=== PATIENT | male | born 1965 | race Caucasian/White ===

== ENCOUNTER 2016-07-05 12:38 | Emergency (ER) | payer MEDICARE, MEDICAID ==
[2016-07-05 14:36] VITALS: BP 140/78
[2016-07-05] MEDS ORDERED: Lidocaine 1% MPF* 2 ML VIAL INJ ONE (15:17)
--- NOTE | 2016-07-05 15:51 | UC ---
George Torres Anna, scribed for Richard Gómez MD on 07/05/16 at 1512 . Skin Complaint HPI - HPI Summary HPI Summary: Patient is a 50 y/o male coming to [facility] [place] presenting with a constant lump on his upper left thigh that began three weeks ago. The lump was initially the same color as his skin. He says it looked like a lipoma. Yesterday the area turned erythematous and became painful. Today, the pain and erythema had worsened, and he popped the lump. The area drained primarily blood with a small amount of pus. Per triage notes, he describes the severity of the pain as 3/10. 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 Patient medications were reviewed this visit. - History of Current Complaint Chief Complaint: UCSkin Time Seen by Provider: 07/05/16 15:08 Stated Complaint: LUMP THAT BURST-PUS/BLOOD Hx Obtained From: Patient Onset/Duration: Lasting Weeks, Still Present Skin Exposure Onset/Duration: Weeks Ago Timing: Constant Pain Intensity: 3 Pain Scale Used: 0-10 Numeric - Allergy/Home Medications Allergies/Adverse Reactions: Allergies Allergy/AdvReac Type Severity Reaction Status Date / Time MAO inhibitors Allergy unk Uncoded 09/01/13 17:24 Review of Systems Constitutional: Negative Skin: Other - lump on upper left thigh - erythematous and painful Eyes: Negative ENT: Negative Respiratory: Negative Cardiovascular: Negative Gastrointestinal: Negative Genitourinary: Negative Motor: Negative Neurovascular: Negative Musculoskeletal: Negative Neurological: Negative Psychological: Negative All Other Systems Reviewed And Are Negative: Yes PMH/Surg Hx/FS Hx/Imm Hx - Additional Past Medical History Additional PMH: sleep apnea, schizoaffective disorder Endocrine History: Diabetes Cardiovascular History: Other - Denies CAD, NE Other Cardiovascular History: DENIES - Surgical History Surgical History: Yes Surgery Procedure, Year, and Place: arthroscopy right knee, posterior chest repair - Family History Known Family History: Positive: Other - sleep apnea - Social History Alcohol Use: None Alcohol Amount: 20years sober Substance Use Type: None Smoking Status (MU): Former Smoker Type: Cigarettes Have You Smoked in the Last Year: No When Did the Patient Quit Smoking/Using Tobacco: 2 yrs ago Physical Exam Triage Information Reviewed: Yes Appearance: Well-Appearing, No Pain Distress Vital Signs: Initial Vital Signs Temp 98 F 07/05/16 14:32 Pulse 95 07/05/16 14:32 Resp 20 07/05/16 14:32 BP 140/78 07/05/16 14:32 Pulse Ox 100 07/05/16 14:32 Elevated blood pressure noted. Vital Signs Reviewed: Yes Eyes: Positive: Other: - EOMI, TOBI ENT Exam: Normal Respiratory: Positive: Normal breath sounds, No respiratory distress Cardiovascular: Positive: RRR Musculoskeletal Exam: Normal Musculoskeletal: Positive: Strength Intact, ROM Intact Neurological Exam: Normal, Other - sensory/motor intact, A&O x3 Psychological Exam: Normal - affect/mood appropriate Skin Exam: Other - On his left upper thigh, he has a subcutaneous, firm mass 1 cm wide by 1 .5 cm long. There is no active drainage. There is a 5 cm x 8 cm erythematous, blanching warm area consistent with cellulitis. Course/Dx - Course Course Of Treatment: NO PUS DRAINED FROM SITE. RX CEFALEXIN; F/U PMD. ED IF WORSE. DISCHARGE HOME STABLE. - Diagnoses Provider Diagnoses: Elevated blood presssure without diagnosis of hypertension. CELLULITIS LEFT UPPER LEG. Procedures - Procedure Summary Procedure Summary: Betadine sterile procedure, numbed with 1% lidocaine Attempted drainage with 18 gauge needle, but got no pus back. - Incision and Drainage Site: upper left thigh Anesthesia: Lidocaine - 1% Instrument(s): Needle - 18 gauge Discharge - Discharge Plan Condition: Stable Disposition: HOME Prescriptions: Cephalexin CAP* [Keflex CAP*] 500 mg PO QID #40 cap Patient Education Materials: Cellulitis (ED), Hypertension (ED) Referrals: Andrew Mayo MD [Primary Care Provider] - Additional Instructions: FOLLOW UP WITH YOUR DOCTOR FOR YOUR CELLULITIS AND YOUR BLOOD PRESSURE. GET REEVALUATED IN THE EMERGENCY DEPARTMENT FOR ANY WORSENING OF YOUR CONDITION ; SPREAD OF INFECTION, FEVER, YOU FEEL ILL OR QUESTIONS OR CONCERNS. The documentation as recorded by the George lee Anna accurately reflects the service I personally performed and the decisions made by me, Richard Gómez MD.
== END 2016-07-05 16:11 | disposition home or self-care (01) ==
LOC: UCEAST 12:38
DX: R03.0 Elevated blood-pressure reading, without diagnosis of hypertension (principal); L03.116 Cellulitis of left lower limb; Z87.891 Personal history of nicotine dependence
CPT/HCPCS: 10060; 99212; G0463

== ENCOUNTER 2016-11-21 12:26 | Emergency (ER) | payer MEDICARE, MEDICAID ==
[2016-11-21 13:38] VITALS: BP 152/74
--- NOTE | 2016-11-21 13:56 | UC ---
Respiratory Complaint HPI - HPI Summary HPI Summary: 51 yo male with cough x 2 weeks productive of green sputum sinus pain /pressure as well has felt feverish no n/v/d - History of Current Complaint Chief Complaint: UCGeneralIllness Stated Complaint: URI Time Seen by Provider: 11/21/16 13:23 Onset/Duration: Sudden Onset Timing: Constant Severity Initially: Mild Severity Currently: Moderate Pain Intensity: 0 Pain Scale Used: 0-10 Numeric Character: Cough: Productive Aggravating Factors: Nothing Alleviating Factors: Nothing Associated Signs And Symptoms: Positive: Fever - has felt feverish, Nasal Congestion, Sinus Discomfort - Allergies/Home Medications Allergies/Adverse Reactions: Allergies Allergy/AdvReac Type Severity Reaction Status Date / Time MAO inhibitors Allergy unk Uncoded 11/21/16 13:27 Home Medications: Home Medications Turmeric (Curcuma Longa) [Turmeric] 1 cap PO BID 11/21/16 [History Confirmed ] PMH/Surg Hx/FS Hx/Imm Hx Previously Healthy: Yes Endocrine History: Diabetes Psychological History: Bipolar Disorder, Other Other Psychological History: schizoaffective disorder - Surgical History Surgical History: Yes Surgery Procedure, Year, and Place: arthroscopy right knee - Family History Known Family History: Positive: Other - sleep apnea - Social History Alcohol Use: None Alcohol Amount: 20years sober Substance Use Type: None Smoking Status (MU): Former Smoker Type: Cigarettes Have You Smoked in the Last Year: No When Did the Patient Quit Smoking/Using Tobacco: 2 yrs ago Review of Systems Constitutional: Negative Skin: Negative Eyes: Negative ENT: Nasal Discharge, Sinus Congestion, Sinus Pain/Tenderness Respiratory: Cough Cardiovascular: Negative Gastrointestinal: Negative Genitourinary: Negative Motor: Negative Neurovascular: Negative Musculoskeletal: Negative Neurological: Negative Psychological: Negative Is Patient Immunocompromised?: No All Other Systems Reviewed And Are Negative: Yes Physical Exam Triage Information Reviewed: Yes Appearance: Well-Appearing, No Pain Distress, Well-Nourished Vital Signs: Initial Vital Signs Temp 97.6 F 11/21/16 13:29 Pulse 95 11/21/16 13:29 Resp 18 11/21/16 13:29 BP 152/74 11/21/16 13:29 Pulse Ox 99 11/21/16 13:29 Vital Signs Reviewed: Yes Eyes: Positive: Conjunctiva Clear ENT: Positive: Hearing grossly normal. Negative: Nasal congestion, Nasal drainage, Tonsillar exudate, Trismus, Muffled/hoarse voice Neck: Positive: Supple, Nontender, No Lymphadenopathy Respiratory: Positive: Normal breath sounds, No respiratory distress, No accessory muscle use, Rhonchi - with forced expiration Cardiovascular: Positive: RRR, No Murmur Abdomen Description: Positive: Nontender, No Organomegaly Musculoskeletal: Positive: ROM Intact, No Edema Neurological Exam: Normal Neurological: Positive: Alert Psychological Exam: Normal Skin Exam: Normal UC Diagnostic Evaluation - Laboratory O2 Sat by Pulse Oximetry: 99 - normal/not hypoxic Respiratory Course/Dx - Differential Dx/Diagnosis Provider Diagnoses: acute bronchitis Discharge - Discharge Plan Condition: Stable Disposition: HOME Prescriptions: Azithromycin TAB* [Zithromax TAB*] 250 mg PO DAILY #6 tab Benzonatate CAP* [Tessalon CAP*] 100 - 200 mg PO TID PRN #28 cap PRN Reason: Cough Patient Education Materials: Acute Bronchitis (ED) Referrals: Andrew Mayo MD [Primary Care Provider] - 4 Days (if not better)
== END 2016-11-21 13:58 | disposition home or self-care (01) ==
LOC: UCEAST 12:26
DX: J20.9 Acute bronchitis, unspecified (principal); E11.9 Type 2 diabetes mellitus without complications; Z87.891 Personal history of nicotine dependence
CPT/HCPCS: 99212; G0463

== ENCOUNTER 2017-02-24 12:56 | Day surgery (SDC) | payer MEDICARE, MEDICAID ==
[~2017-02-24 12:56] MED LIST: Buffered Lidocaine 0.9% SYRIN* 5 ML/SYR SYRINGE INTRADERM ONE; Dexamethasone IV* 4 MG/ML 1 ML (4 MG) IV SLOW PU ONE; Famotidine IV* 10 MG/ML 2 ML (20 mg) IV ONE; Levalbuterol 0.63MG/3ML NEB* UNIT OF USE INH ONE
[2017-02-24] MEDS ORDERED: Famotidine IV* 10 MG/ML 2 ML (20 mg) ONE (13:02)
[2017-02-24] MEDS ORDERED: Buffered Lidocaine 0.9% SYRIN* 5 ML/SYR SYRINGE ONE (13:02)
[2017-02-24] MEDS ORDERED: Dexamethasone IV* 4 MG/ML 1 ML (4 MG) ONE (13:02)
[2017-02-24] MEDS ORDERED: Levalbuterol 1.25MG/0.5ML NEB ONE (13:02)
[2017-02-24] MEDS ORDERED: Naloxone* 0.4 MG/ML 1 ML VIAL IV PRN ×2 (13:42→14:48)
[2017-02-24] MEDS ORDERED: Midazolam* 1 MG/ML 10 ML VIAL (10 MG) ONE (14:42)
[2017-02-24] MEDS ORDERED: fentaNYL* 50 MCG/ML 2 ML VIAL (100 MCG VIAL) ONE ×2 (14:42→15:07)
[2017-02-24] MEDS ORDERED: Propofol* 10 MG/ML 20 ML BTL IV PUSH ONE ×2 (14:43→14:45)
[2017-02-24] MEDS ORDERED: Ondansetron INJ* 2 MG/ML VIAL ONE ×2 (14:44→14:45)
[2017-02-24 16:04] VITALS: BP 138/85
--- NOTE | 2017-02-25 04:15 | PRO ---
CC: Dr. Mayo; Dr. Danica Arias GASTROENTEROLOGY OPERATIVE REPORT: DATE OF PROCEDURE: 02/24/17 OPERATIVE PROCEDURE: Colonoscopy to terminal ileum. SURGEON: Danica Arias MD ANESTHESIA: MAC. HISTORY OF PRESENT ILLNESS: Rashad is a pleasant 51-year-old male who presents today for his initial screening colonoscopy. He denies family history of colon cancer and personal gastrointestinal complaints. PREOPERATIVE DIAGNOSIS: 1. Initial screening colonoscopy. POSTOPERATIVE DIAGNOSES: 1. Normal-appearing terminal ileum. 2. A 4-mm sessile descending colon polyp with polypectomy. 3. A 3-mm sessile rectal polyp with polypectomy. 4. An 8-mm sessile rectal polyp with hot snare polypectomy. 5. Small nonbleeding internal hemorrhoids seen on retroflexion. 6. Good colonoscopy preparation. RECOMMENDATIONS: 1. Timing of repeat colonoscopy will be determined upon review of biopsy results. DESCRIPTION OF PROCEDURE: Colonoscopy was explained in detail to the patient. The risks, benefits, complications, alternatives, and possibilities of missed lesions were explained and understood. Complications included, but were not limited to reaction to anesthesia, aspiration, increased risk of bleeding, and perforation. All questions were answered. The patient demonstrated understanding of the conversation and informed consent was obtained. Next, the patient was brought to the OR, placed in the left lateral recumbent position, where blood pressure, cardiac, and oxygen monitors were applied. The patient was found to be a fit candidate for monitored anesthesia care. After adequate IV sedation was achieved, a digital rectal exam was performed, which revealed normal sphincter tone. No palpable masses were appreciated. Next, a standard adult Olympus colonoscope was inserted through the rectum, maneuvered all the way to the cecal base, where the ileocecal valve and appendical orifice were identified and photographed. Next, the terminal ileum was intubated and was normal appearing. Subsequently, the colonoscope was withdrawn in a fashion that allowed adequate visualization of the bowel. The patient had normal mucosa and vascular pattern. Overall, the patient's colonoscopy prep was good. The cecum, ascending colon, and transverse colon were normal appearing. Entry into the descending colon revealed a 4-mm sessile polyp, this was removed via jumbo cold forceps. Hemostasis was observed. Further withdrawal into the sigmoid colon revealed normal appearing mucosa. Entry into the rectum revealed a 3-mm sessile polyp. This was removed via jumbo cold forceps. Hemostasis was seen. Also, an 8-mm sessile rectal polyp was noted, it was removed via hot snare. Hemostasis was observed on retroflexion. The patient had small nonbleeding internal hemorrhoids. Air was then removed from the patient. Colonoscope was removed from the patient. The patient tolerated the procedure well. There were no immediate complications. 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 Thank you, Dr. Mayo, for allowing us to participate in the care of your patient. If you should have any further questions or concerns, please do not hesitate to contact us. [id number]/[facility] #: [id number] MIHIR
== END 2017-02-24 16:45 | disposition home or self-care (01) ==
LOC: OR 12:56
PROVIDERS: ATTEND Internal Medicine Gastroenterology
DX: Z12.11 Encounter for screening for malignant neoplasm of colon (principal); D12.4 Benign neoplasm of descending colon; D12.8 Benign neoplasm of rectum; Z79.899 Other long term (current) drug therapy; F31.9 Bipolar disorder, unspecified; F41.9 Anxiety disorder, unspecified
CPT/HCPCS: 88305; A9270-GY; J1100; J2250; J2405; J2704; J3010

== ENCOUNTER 2017-04-07 14:56 | Emergency (ER) | payer MEDICARE, MEDICAID ==
--- OUTSIDE RECORDS SUMMARY | 2017-04-07 15:04 | XMS REPORT ---
:1965 External Reference #:[id number] Author Organization [facility] Address [address] [address] Phone [phone] Care Team Providers Name Role Phone Andrew Mayo MD Primary Care Physician Unavailable Payers Type Date Identification Numbers Payment Provider Subscriber Medicare Primary Policy Number: [id number] Medicare Janett Hess PayID: [id number] [address] [place] [address] Medigap Part B Effective: 2012 Policy Number: Medicaid Janett Hess [id number] Group Name: [id number] [address] PayID: [id number] [place] [address] Commercial Expires: 2016 Policy Number: 70% [employer] Janett Hess PayID: [id number] [address] Problems Date Description Provider Status Onset: 11/06/2012 Low back pain Felix Garcia M.D. Active Onset: 11/06/2012 Morbid obesity Felix Garcia M.D. Active Onset: 11/06/2012 Lymphedema Felix Garcia M.D. Active Onset: 11/06/2012 Obstructive sleep apnea syndrome Felix Garcia M.D. Active Onset: 04/02/2015 Schizoaffective disorder Andrew Mayo Active Candie,FALLON Onset: 12/14/2015 Localized, primary osteoarthritis Alton Carvajal M.D. Active Note: bilat knee Onset: 12/01/2016 Impaired fasting glycaemia Andrew Mayo M.D.,FACP Active Onset: 12/01/2016 Ex-smoker Andrew Mayo M.D.,FACP Active Onset: 11/06/2012 Ingrowing nail Felix Garcia M.D. Inactive Inactive: 05/16/2013 Onset: 11/06/2012 Disorder of skin AND/OR Felix Garcia M.D. Inactive subcutaneous tissue Inactive: 04/02/2015 Onset: 01/15/2015 Personal history finding Silva Rivera MD Inactive Inactive: 04/02/2015 Onset: 01/15/2015 Obesity Silva Rivera MD Inactive Inactive: 04/02/2015 Onset: 11/06/2012 Pilonidal cyst without abscess Felix Garcia M.D. Resolved Resolved: 04/06/2014 Onset: 11/06/2012 Old anterior cruciate ligament Felix Garcia M.D. Resolved disruption Resolved: 04/06/2014 Family History Date Family Member(s) Problem(s) Comments Father Pancreatitis Father Diabetes Type II Father Roberson's Onset: (age 71 Years) Mother Alive And Well Siblings 2 Second Brother Mental Illness NOS ? sociopathic PD Second Brother Alcoholism First Sister Schizophrenia or schizo-affective d/o Social History Type Date Description Comments Marital Status Single Lives With Adult family home Occupation Disabled Work Status Not Currently Working Cigarette Use Former Cigarette Smoker 1 Pack Daily Cigarette Use Pack Years - 25 Cigarette Use Quit - Age 45 ETOH Use 07/15/2015 Denies alcohol use Smoking Patient is a former smoker Recreational Drug Use Denies Drug Use Daily Caffeine reports 2 diet sodas a day General Hx Text Allergies, Adverse Reactions, Alerts Date Description Reaction Status Severity Comments 12/19/2013 Gissel Inhibitors active 09/08/2014 Alcohol active drinking alcahol, but can use rubbing alcahol. 04/02/2015 Selegiline active contraindicated when on Zyprexa 11/06/2012 NKDA inactive 12/19/2013 NKDA inactive 03/19/2015 NKDA inactive Medications Medication Date Status Form Strength Qnty SIG Indications Ordering Provider Triamcinolone 03/06/ Active Cream 0.1% 30gm apply L20.9 Andrew Acetonide 2018 every day Barak Mayo, as needed Candie,FACP for cheek/jyothi st Nabumetone 03/06/ Active Tablets 750mg 60tab take 1 M17.11 Andrew 2017 s tablet by fabienne Westbrook M.D.,FACP twice a day as needed Right Knee Brace 01/09/ Active M17.11 Dirk With Hinges 2016 Candie Carvajal Magnesium Oxide 12/01/ Active Capsules 400mg 90cap by mouth Andrew 2016 s every Barak Mayo, evening M.DRachel,FACP Knee Brace/Hinged 06/15/ Active Misc 1unit One Dirk Bars Large 2017 s hinged farideh Carvajal M.D. brace, please measure for sizing Betamethasone 01/18/ Active Ointment 0.05% 90gm apply L30.9 Andrew Dipropionate 2015 thin Barak Mayo, layer Candie,FACP twice daily for rash on leg Hinge Knee Brace 07/26/ Active 1 hinge Monique 2015 knee Bordoni, brace [employer] Depakote ER 03/16/ Active Tablets ER 500mg 3 by Unknown 2015 24HR mouth every night at bedtime Proair HFA 01/15/ Active Aerosol 108(90Bas 3unit 1 puff Z77.22 Silva 2014 e) s every 6 MD Miguel mcg/Act hours as needed Diphenhydramine 01/14/ Active Capsules 25mg 2 tab by Unknown HCL 2014 mouth at bedtime Metformin HCL 01/14/ Active Tablets 500mg 2 by Unknown 2014 mouth twice a day Clonazepam 05/23/ Active Tablets 0.5mg 1 by Jl 2014 mouth AMY Vang twice a day as needed Tizanidine HCL 04/04/ Active Capsules 4mg 90cap Take One 724.2 Jl 2014 s Tablet By AMY Vang Mouth Three Times Daily F0R Back Pain & Muscle Spasm Trazodone HCL / Active Tablets 50mg 30tab 1 tablet Unknown 0000 s at bedtime as needed Fluphenazine HCL / Active Tablets 10mg 2 by Unknown 0000 mouth at bedtime Tylenol Extra / Active Tablets 500mg takes a Unknown Strength 0000 total of 2-3000 prn Turmeric / Active Tablets 500mg Unknown 0000 Valtrex 12/01/ Hx Tablets 1gm 21tab 1 po q8h Andrew 2016 - s for 1 Barak Mayo, 12/08/ week M.D.,FACP 2017 Azithromycin 11/21/ Hx Tablets 250mg 6tabs two tabs Other 2017 - day one, Ordering 11/26/ one daily Provider 2017 till gone Benzonatate 11/21/ Hx Capsules 100mg 30cap one by Other 2017 - s mouth Ordering 11/29/ three Provider 2017 times daily as needed for cough Cephalexin 07/05/ Hx Tablets 500mg 40tab 1 by Other 2017 - s mouth qid Ordering 07/15/ x 10 days Provider 2017 Azithromycin 01/24/ Hx Tablets 250mg 6tabs 2 tabs by J06.9 Jose 2016 - mouth on Mauritanian, [employer] 01/29/ day 1; 1 2015 tab by mouth every day on days 2-5 Urea 07/14/ Hx Cream 40% 85gm topical B35.3 Andrew 2016 - every day Barak Mayo, 01/13/ to heels M.D.,FACP 2016 (ok to let patient pay out of pocket) Meloxicam 04/13/ Hx Tablets 7.5mg 180ta 1 by M17.11 Andrew 2016 - bs mouth Barak Mayo, 03/06/ twice a M.D.,FACP 2018 day as needed Urea / Hx Cream 20% 85gm apply at L85.3 Andrew 2015 - bedtime Barak Mayo, / M.D.,FACP 2016 Urea / Hx Cream 40% 227gm topical L85.3 Andrew 2016 - every day Barak Mayo, / to heels M.D.,FACP 2016 Urea / Hx Cream 20% apply to L85.3 Andrew 2016 - heels Barak Mayo, 07/14/ daily M.D.,FACP 2016 Urea 04/02/ Hx Cream 40% 60g topical L85.3 Andrew 2016 - every day Barak Mayo, / to heels M.D.,FACP 2016 Naproxen 09/01/ Hx Tablets 500mg 60tab Take One Andrew 2014 - s Tablet By Barak Mayo, 04/13/ Mouth Two M.D.,FACP 2016 Times Daily as Needed Triamcinolone 08/05/ Hx Cream 0.1% 80gm apply Jl Acetonide 2014 - twice a Vang, [employer] 01/24/ day to 2016 affected area Ketoconazole 07/21/ Hx Cream 2% 1unit apply L30.9 Jose 2015 - s once AMY Cano 01/18/ daily to 2016 affected areas x two weeks. Hydrocodone-Aceta 05/23/ Hx Tablets 7.5-325mg 45tab 1-2 tabs 724.2 Jl izquierdo 2014 - s by mouth AMY Vang 07/21/ q6 hours 2014 as needed pain Hydrocodone-Aceta 05/01/ Hx Tablets 5-325mg 30tab 1-2 tabs Jl bradleyophen 2014 - s by mouth Vang, [employer] 05/23/ q4 hours 2014 as needed pain limit 6 tabs per day Clonazepam 04/04/ Hx Tablets 1mg 12-1 by Jl 2014 - mouth Ciera, AMY 05/23/ twice a 2014 day as needed Skelaxin 04/04/ Hx Tablets 800mg 60tab 1 tab by 724.2 Jl 2014 - s mouth AMY Vang 04/04/ three 2014 times a day as needed pain/musc le spasm Nystatin 04/04/ Hx Cream [id number] 1unit apply B35.3 Jl 2014 - t/GM s twice per AMY Vang 07/14/ day for 2016 two weeks or untill symptoms resolve Amoxicillin 05/20/ Hx Tablets 500mg 40tab 2 tabs by 461.1 Andrew 2014 - s fabienne Mayo, 07/18/ twice a M.DRachel,FACP 2013 day for 10 days Nitro-bid 05/16/ Hx Ointment 2% 15g apply 455.3 Andrew 2014 - small Barak Mayo, 07/21/ amount to M.D.,FACP 2014 anal fissure bid prn Furosamide 11/28/ Hx Tablets 20 30tab 1 po qd 457.1 Felix 2012 - s [place]ikara, 05/16/ M.DRachel 2013 Quetiapine / Hx Tablets 400mg 30tab take 1 Unknown Fumarate 0000 - s tablet 05/16/ every 2013 evening Divalproex Sodium / Hx Tablets ER 500mg 60tab 3 tabs by Unknown ER 0000 - 24HR s mouth hs 03/16/ as 2016 directed Ropinirole HCL / Hx Tablets 1mg 60tab take one Unknown 0000 - s by mouth 05/16/ at 2013 bedtime Clonazepam / Hx Tablets 0.5mg 60tab 1 by Unknown 0000 - s mouth 04/04/ twice a 2014 day as needed Benadryl /00/ Hx Capsules 25mg 30cap 1 by Unknown 0000 - s mouth at 07/18/ at 2013 bedtime Fluphenazine HCL / Hx Tablets 5mg 1 po qhs Unknown - 2014 Gabapentin / Hx Capsules 100mg 90cap 1 po qhs Unknown 0000 - s 2014 Naproxen / Hx Tablets 500mg 1 by Unknown 0000 - mouth 07/21/ twice a 2014 day as needed Lamictal / Hx Tablets 25mg 1 tab hs Unknown - 2014 Tylenol Extra / Hx Tablets 500mg as needed Unknown Strength - 2014 Ibuprofen / Hx Capsules 200mg as needed Unknown - 2014 Medications Administered in Office Medication Date Status Form Strength Qnty SIG Indications Ordering Provider Depomedrol Administered Injection Dirk Wei, 40MG 017 M.D. Depomedrol Administered Injection Dirk Wei, 40MG 017 M.D. Immunizations CPT Code Status Date Vaccine Lot # [id number] Given 12/01/2016 Influenza Virus Vaccine, Quadrivalent, Split, [id number] Preservative Free [id number] Given 12/16/2014 Flu Vaccine Split Virus Preservative Free For Indiv 3Yr Older 48500 Given 09/08/2014 Tdap - Tetanus/Diptheria/Acellular Pertussis [id number] Given 11/26/2013 Flu Vaccine Split Virus Preservative Free For Indiv [id number] 3Yr Older Vital Signs Date Vital Result Comment 03/15/2017 Height 67.25 inches 5'7.25" Weight 305.00 lb BP Systolic 123 mmHg BP Diastolic 72 mmHg Respiratory Rate 15 /min Pain Level 7 BMI (Body Mass Index) 47.4 kg/m2 03/06/2017 Weight 309.00 lb Heart Rate 93 /min BP Systolic Sitting 125 mmHg BP Diastolic Sitting 72 mmHg Body Temperature 98.2 F O2 % BldC Oximetry 94 % 01/09/2017 Height 67.25 inches 5'7.25" Weight 307.00 lb Respiratory Rate 18 /min Pain Level 8 BMI (Body Mass Index) 47.7 kg/m2 12/01/2016 Height 67.25 inches 5'7.25" Weight 307.00 lb Heart Rate 95 /min BP Systolic Sitting 130 mmHg BP Diastolic Sitting 80 mmHg Body Temperature 97.6 F O2 % BldC Oximetry 96 % BMI (Body Mass Index) 47.7 kg/m2 09/07/2016 Height 68 inches 5'8" Weight 317.00 lb Respiratory Rate 18 /min Body Temperature 97.8 F Pain Level 7 BMI (Body Mass Index) 48.2 kg/m2 07/08/2016 Weight 313.00 lb Heart Rate 81 /min BP Systolic Sitting 128 mmHg BP Diastolic Sitting 80 mmHg Body Temperature 97.0 F O2 % BldC Oximetry 98 % 01/25/2016 Heart Rate 97 /min BP Systolic Sitting 154 mmHg recheck 140/90 BP Diastolic Sitting 90 mmHg recheck 140/90 Body Temperature 97.5 F O2 % BldC Oximetry 97 % 01/14/2016 Height 68 inches 5'8" Weight 315.50 lb Heart Rate 102 /min BP Systolic Sitting 116 mmHg BP Diastolic Sitting 66 mmHg Body Temperature 97.1 F O2 % BldC Oximetry 96 % BMI (Body Mass Index) 48.0 kg/m2 12/14/2015 Height 68 inches 5'8" Weight 317.00 lb Pain Level 0 BMI (Body Mass Index) 48.2 kg/m2 10/26/2015 Height 68 inches 5'8" Weight 317.00 lb Heart Rate 97 /min BP Systolic 124 mmHg BP Diastolic 76 mmHg Respiratory Rate 14 /min O2 % BldC Oximetry 98 % BMI (Body Mass Index) 48.2 kg/m2 07/15/2015 Height 68 inches 5'8" Weight 310.00 lb Heart Rate 98 /min BP Systolic Sitting 118 mmHg BP Diastolic Sitting 70 mmHg Body Temperature 97.3 F O2 % BldC Oximetry 97 % BMI (Body Mass Index) 47.1 kg/m2 06/18/2015 Height 68 inches 5'8" Weight 309.00 lb reported Heart Rate 98 /min BP Systolic 130 mmHg BP Diastolic 80 mmHg Respiratory Rate 16 /min O2 % BldC Oximetry 98 % BMI (Body Mass Index) 47.0 kg/m2 04/02/2015 Height 68 inches 5'8" Weight 301.00 lb Heart Rate 110 /min BP Systolic Sitting 142 mmHg BP Diastolic Sitting 92 mmHg Body Temperature 97.5 F O2 % BldC Oximetry 96 % BMI (Body Mass Index) 45.8 kg/m2 03/19/2015 Height 68 inches 5'8" Weight 300.00 lb Heart Rate 97 /min BP Systolic 126 mmHg BP Diastolic 72 mmHg O2 % BldC Oximetry 97 % BMI (Body Mass Index) 45.6 kg/m2 03/18/2015 Height 68 inches 5'8" Weight 300.00 lb Heart Rate 72 /min Respiratory Rate 18 /min Pain Level 4 BMI (Body Mass Index) 45.6 kg/m2 01/15/2015 Height 68 inches 5'8" Weight 300.00 lb Heart Rate 88 /min BP Systolic 124 mmHg BP Diastolic 78 mmHg Respiratory Rate 14 /min O2 % BldC Oximetry 98 % BMI (Body Mass Index) 45.6 kg/m2 09/08/2014 Weight 293.75 lb Heart Rate 82 /min BP Systolic Sitting 126 mmHg BP Diastolic Sitting 80 mmHg Body Temperature 97.7 F Pain Level 0 O2 % BldC Oximetry 98 % 08/22/2014 Weight 294.00 lb Heart Rate 82 /min BP Systolic Sitting 128 mmHg BP Diastolic Sitting 82 mmHg O2 % BldC Oximetry 98 % 07/21/2014 Weight 287.25 lb Heart Rate 90 /min BP Systolic Sitting 122 mmHg BP Diastolic Sitting 78 mmHg Body Temperature 97.9 F Pain Level 5 O2 % BldC Oximetry 98 % 05/23/2014 Weight 290.50 lb Heart Rate 101 /min BP Systolic Sitting 118 mmHg BP Diastolic Sitting 74 mmHg Body Temperature 97.6 F O2 % BldC Oximetry 98 % 05/02/2014 Height 68 inches 5'8" Weight 306.00 lb Heart Rate 104 /min BP Systolic Sitting 136 mmHg BP Diastolic Sitting 72 mmHg Pain Level 8 8/10 O2 % BldC Oximetry 96 % BMI (Body Mass Index) 46.5 kg/m2 04/04/2014 Weight 305.38 lb Heart Rate 88 /min BP Systolic Sitting 122 mmHg BP Diastolic Sitting 78 mmHg Body Temperature 97.4 F O2 % BldC Oximetry 98 % 02/18/2014 Weight 302.00 lb Heart Rate 81 /min BP Systolic Sitting 136 mmHg BP Diastolic Sitting 73 mmHg Body Temperature 97.2 F O2 % BldC Oximetry 98 % 12/19/2013 Height 68 inches 5'8" Weight 303.00 lb Heart Rate 88 /min BP Systolic Sitting 134 mmHg BP Diastolic Sitting 66 mmHg Respiratory Rate 20 /min O2 % BldC Oximetry 98 % BMI (Body Mass Index) 46.1 kg/m2 Neck Circumference in inches 19 12/02/2013 Height 68 inches 5'8" Weight 300.00 lb Heart Rate 84 /min BP Systolic 137 mmHg BP Diastolic 85 mmHg BMI (Body Mass Index) 45.6 kg/m2 07/18/2013 Weight 289.00 lb Heart Rate 78 /min BP Systolic Sitting 112 mmHg BP Diastolic Sitting 72 mmHg Body Temperature 98.0 F 05/20/2013 Weight 292.25 lb Heart Rate 88 /min BP Systolic Sitting 130 mmHg BP Diastolic Sitting 78 mmHg Body Temperature 97.3 F 05/16/2013 Weight 292.00 lb Heart Rate 78 /min BP Systolic Sitting 122 mmHg BP Diastolic Sitting 80 mmHg 11/30/2012 Height 70 inches 5'10" Weight 300.00 lb Heart Rate 102 /min BP Systolic 167 mmHg BP Diastolic 88 mmHg BMI (Body Mass Index) 43.0 kg/m2 11/28/2012 Height 67 inches 5'7" Weight 306.00 lb Heart Rate 105 /min BP Systolic Sitting 110 mmHg BP Diastolic Sitting 80 mmHg BMI (Body Mass Index) 47.9 kg/m2 11/06/2012 Height 67 inches 5'7" Weight 303.00 lb Heart Rate 101 /min BP Systolic Sitting 134 mmHg BP Diastolic Sitting 84 mmHg BMI (Body Mass Index) 47.5 kg/m2 Results Test Date Test Result H/L Range Note Laboratory test 02/24/2017 Surgical Pathology SEE RESULT BELOW 1 finding Laboratory test 02/24/2017 Point of Care 88 mg/dL 70-100 2 finding Glucose CBC Auto Diff 01/09/2017 White Blood Count 11.1 10^3/uL High 3.5-10.8 Red Blood Count 4.77 10^6/uL 4.0-5.4 Hemoglobin 14.2 g/dL 14.0-18.0 Hematocrit 43 % 42-52 Mean Corpuscular Volume 90 fL 80-94 Mean Corpuscular Hemoglobin 30 pg 27-31 Mean Corpuscular HGB Conc 33 g/dL 31-36 Red Cell Distribution Width 14 % 10.5-15 Platelet Count 266 10^3/uL 150-450 Mean Platelet Volume 8 um3 7.4-10.4 Abs Neutrophils 6.4 10^3/uL 1.5-7.7 Abs Lymphocytes 3.4 10^3/uL 1.0-4.8 Abs Monocytes 0.9 10^3/uL High 0-0.8 Abs Eosinophils 0.3 10^3/uL 0-0.6 Abs Basophils 0.1 10^3/uL 0-0.2 Abs Nucleated RBC 0.01 10^3/uL Granulocyte % 58.2 % 38-83 Lymphocyte % 30.7 % 25-47 Monocyte % 8.2 % 1-9 Eosinophil % 2.4 % 0-6 Basophil % 0.5 % 0-2 Nucleated Red Blood Cells % 0.1 Laboratory test finding 01/09/2017 Erythrocyte Sed Rate 12 mm/Hr 0-20 C Reactive Protein 4.41 mg/L < 5.00 3 Lipid Profile (Trig/Chol/HDL) 11/14/2016 Triglycerides 107 mg/dL 4 Cholesterol 172 mg/dL 5 HDL Cholesterol 40.1 mg/dL 6 LDL Cholesterol 111 mg/dL 7 Laboratory test finding 11/14/2016 Valproic Acid (Depakene) 85.0 g/mL 50-100 8 Comp Metabolic Panel 11/14/2016 Sodium 134 mmol/L 133-145 Potassium 4.6 mmol/L 3.5-5.0 Chloride 100 mmol/L Low 101-111 Co2 Carbon Dioxide 29 mmol/L 22-32 Anion Gap 5 mmol/L 2-11 Glucose 103 mg/dL High 70-100 Blood Urea Nitrogen 17 mg/dL 6-24 Creatinine 0.81 mg/dL 0.67-1.17 BUN/Creatinine Ratio 21.0 High 8-20 Calcium 9.4 mg/dL 8.6-10.3 Total Protein 6.3 g/dL Low 6.4-8.9 Albumin 3.8 g/dL 3.2-5.2 Globulin 2.5 g/dL 2-4 Albumin/Globulin Ratio 1.5 1-3 Total Bilirubin 0.30 mg/dL 0.2-1.0 Alkaline Phosphatase 45 U/L 34-104 Alt 15 U/L 7-52 Ast 12 U/L Low 13-39 Egfr Non- 100.9 >60 Egfr 129.7 >60 9 Laboratory test finding 11/14/2016 Magnesium 1.8 mg/dL Low 1.9-2.7 10 Laboratory test finding 09/28/2016 Potassium 4.3 mmol/L 3.5-5.0 Magnesium 1.9 mg/dL 1.9-2.7 Ua Routine 01/25/2016 Ua Specific Dexter 1.020 Ua PH 5 Ua Color yellow Ua Appera clear Ua WBC trace Ua Protein trace Ua Glucose normal Ua Ketones + Ua Bilirubin neg Ua Urobilinogen normal Ua Nitrite neg Ua Occult Blood neg HIV 1/2 AB Evaluation 01/04/2016 HIV 1 2 Antibody Nonreactive Nonreactive 11 Laboratory test finding 01/04/2016 Valproic Acid 87.0 g/mL 50-100 12 (Depakene) TSH (Thyroid Stim Horm) 2.69 mcIU/mL 0.34-5.60 13 Comp Metabolic Panel 04/03/2015 Sodium 138 mmol/L 133-145 Potassium 4.7 mmol/L 3.5-5.0 Chloride 102 mmol/L 101-111 Co2 Carbon Dioxide 29 mmol/L 22-32 Anion Gap 7 mmol/L 2-11 Glucose 89 mg/dL 70-100 Blood Urea Nitrogen 14 mg/dL 6-24 Creatinine 0.83 mg/dL 0.67-1.17 BUN/Creatinine Ratio 16.9 8-20 Calcium 9.5 mg/dL 8.6-10.3 Total Protein 6.6 g/dL 6.4-8.9 Albumin 4.1 g/dL 3.2-5.2 Globulin 2.5 g/dL 2-4 Albumin/Globulin Ratio 1.6 1-3 Total Bilirubin 0.20 mg/dL 0.2-1.0 Alkaline Phosphatase 51 U/L 34-104 Alt 16 U/L 7-52 Ast 16 U/L 13-39 Egfr Non- 98.9 >60 Egfr 127.2 >60 14 Lipid Profile (Trig/Chol/HDL) 04/03/2015 Triglycerides 154 mg/dL 15 Cholesterol 194 mg/dL 16 HDL Cholesterol 43.2 mg/dL 17 LDL Cholesterol 120 mg/dL 18 Laboratory test finding 04/03/2015 Valproic Acid (Depakene) 81.0 g/mL 50-100 Erythrocyte Sed Rate 18 mm/Hr High 0-14 C Reactive Protein 6.13 mg/L High < 5.00 19 Liver Function Panel 05/23/2014 Total Protein 6.8 g/dL 6.4-8.9 Albumin 4.4 g/dL 3.2-5.2 Globulin 2.4 g/dL 2-4 Albumin/Globulin Ratio 1.8 1-3 Total Bilirubin 0.40 mg/dL 0.2-1.0 Direct Bilirubin 0.10 mg/dL 0.03-0.18 Indirect Bilirubin 0.3 mg/dL 0.3-1.0 Alkaline Phosphatase 41 U/L 34-104 Alt 16 U/L 7-52 Ast 16 U/L 13-39 Laboratory test 12/17/2013 Valproic Acid 86 g/mL 50.0-100.0 finding Laboratory test 11/26/2013 Hemoglobin A1c 6.1 % High Less than 6.0 20, 21 finding Basic Metabolic Panel 11/26/2013 Sodium 137 mmol/L 133-145 20 Potassium 4.8 mmol/L 3.7-5.6 20 Chloride 104 mmol/L 101-111 20 Co2 Carbon Dioxide 30 mmol/L 22-32 20 Anion Gap 3 mmol/L 2-11 20 Glucose 86 mg/dL 70-100 20 Blood Urea Nitrogen 13 mg/dL 6-24 20 Creatinine 0.91 mg/dL 0.67-1.17 20 BUN/Creatinine Ratio 14.3 8-20 20 Calcium 9.4 mg/dL 8.6-10.3 20 Egfr Non- 89.3 >60 20 Egfr 114.8 >60 20, 22 Lipid Profile (Trig/Chol/HDL) 11/26/2013 Triglycerides 123 mg/dL 20, 23 Cholesterol 160 mg/dL 20, 24 HDL Cholesterol 44.6 mg/dL 20, 25 LDL Cholesterol 91 mg/dL 20, 26 Laboratory test finding 12/10/2012 Valproic Acid 0.7 g/mL Low 50.0- 100.0 27 Acetaminophen < 10 g/mL Low 10-30 28 Alcohol < 10 mg/dL Less Than 10 29 Salicylate < 4.0 Less Than 30 TSH (Thyroid Stimulating Horm) 2.34 miu/mL 0.34-5.60 Comp Metabolic Panel 12/10/2012 Sodium 136 mmol/L 133-145 Potassium 4.8 mmol/L 3.5-5.0 Chloride 104 mmol/L 101-111 Co2 Carbon Dioxide 26.0 mmol/L 22-32 Anion Gap 6.0 mmol/L 2-11 Glucose 126 mg/dL High 70-100 Blood Urea Nitrogen 13 mg/dL 6-24 Creatinine 0.90 mg/dL 0.50-1.40 BUN/Creatinine Ratio 14.4 8-20 Calcium 9.1 mg/dL 8.1-9.9 Total Protein 6.7 g/dL 6.2-8.1 Albumin 3.8 g/dL 3.6-5.4 Globulin 2.9 g/dL 2-4 Albumin/Globulin Ratio 1.3 1-3 Total Bilirubin 0.4 mg/dL 0.4-1.5 Alkaline Phosphatase 64 U/L 30-110 Alt 38 U/L 14-54 Ast 35 U/L 12-42 Egfr Non- 90.8 >60 Egfr 116.8 >60 30 CBC Auto Diff 12/10/2012 White Blood Count 10.0 10^3/uL 4.8-10.8 Red Blood Count 4.53 10^6/uL 4.0-5.4 Hemoglobin 13.8 g/dL Low 14.0-18.0 Hematocrit 42 % 42-52 Mean Corpuscular Volume 93 fL 80-94 Mean Corpuscular Hemoglobin 30 pg 27-31 Mean Corpuscular HGB Conc 33 g/dL 31-36 Red Cell Distribution Width 14 % 10.5-15 Platelet Count 251 10^3/uL 150-450 Mean Platelet Volume 8 um3 7.4-10.4 Abs Neutrophils 6.2 10^3/uL 1.5-7.7 Abs Lymphocytes 2.7 10^3/uL 1.0-4.8 Abs Monocytes 1.0 10^3/uL High 0-0.8 Abs Eosinophils 0.1 10^3/uL 0-0.6 Abs Basophils 0 10^3/uL 0-0.2 Abs Nucleated RBC 0 10^3/uL Granulocyte % 62.3 % 38-83 Lymphocyte % 27.1 % 25-47 Monocyte % 9.6 % High 1-9 Eosinophil % 0.6 % 0-6 Basophil % 0.4 % 0-2 Nucleated Red Blood Cells % 0 Urine Drug SCR ED 12/10/2012 Amphetamine Ur Screen None Detected None Detect & [facility] Barbiturates Urine Screen None Detected None Detect Benzodiazepine Urine Screen None Detected None Detect Urine Cannabinoids Screen None Detected None Detect Urine Cocaine Screen None Detected None Detect Urine Opiates Screen None Detected None Detect Urine Phencyclidine Screen None Detected None Detect 31 Urinalysis 12/10/2012 Urine Color Yellow Urine Appearance Clear Urine Specific Dexter 1.015 1.010-1.030 Urine Esterase Negative Negative Urine Nitrate Negative Negative Urine Urobilinogen Negative E.U./dL Negative Urine Protein Negative mg/dL Negative Urine pH 6.0 5-9 Urine Blood Negative Negative Urine Ketones Negative mg/dL Negative Urine Bilirubin Negative Negative Urine Glucose Negative mg/dL Negative 1 SEE RESULT BELOW Name: JOHNJANETT Aiken : [address]: Danica Arias DO Acct: [id number] Unit: [id number] AGE: 51 Location: OR Re02/24/17 SEX: M Status: [facility] SPEC: [id number] ELIF: 02/24/17- SUBM DR: Danica Arias DO REQ: [id number] RECD: 02/24/17 STATUS: GOMEZ CASSIDY DR: Andrew Mayo MD _ ORDERED: LEVEL 4/2 FINAL DIAGNOSIS 1. Colon, descending, biopsy: -- Tubular adenoma. -- No high grade dysplasia or malignancy. 2. Colon, rectum, biopsy: -- Tubular adenoma. -- No high grade dysplasia or malignancy. CLINICAL HISTORY Screening/Surveillance for malignancy in asymptomatic patient. POST-OPERATIVE DIAGNOSIS Normal terminal ileum, small non-bleeding internal hemorrhoids; good prep; 4 mm sessile descending colon polyp, status post polypectomy; 3 mm sessile rectal polyp, status post polypectomy; 8 mm sessile rectal polyp, status post hot snare. Conclusions/ Plan: Follow-up pathology GROSS DESCRIPTION 1. The specimen is received in formalin labeled, Biopsy Descending Colon Polyp, and consists of two hudson irregular to polypoid soft tissue fragments measuring 0.3 x 0.2 x 0.1 cm and 0.4 x 0.3 x 0.2 cm which are submitted entirely in one cassette. 2. The specimen is received in formalin labeled, Rectal Polyps, and consists of a 1.0 x 0.8 by up to 0.4 cm aggregate of hudson irregular to polypoid soft tissue fragments which is submitted entirely in one cassette. Signed (signature on file) Monique Mahan MD 1038 END OF REPORT * ML=Testing performed at Main Lab DEPARTMENT OF PATHOLOGY, [address] [place] [address] Martin Bernal M.D. Director [facility] # [id number] 2 Compressor Operator: [id number] 3 Acute inflammation: >10.00 4 Desirable <150 Borderline high 150-199 High 200-499 Very High >500 5 Desirable <200 Borderline high 200-239 High >239 6 Low <40 Desirable: 40-60 High: >60 7 Desirable: <100 mg/dL Near Optimal: 100-129 mg/dL Borderline High: 130-159 mg/dL High: 160-189 mg/dL Very High: >189 mg/dL 8 FASTING 10 HOUR 9 Because ethnic data is not always readily available, this report includes an eGFR for both -Americans and non- Americans. The National Kidney Disease Education Program (NKDEP) does not endorse the use of the MDRD equation for patients that are not between the ages of 18 and 70, are , have extremes of body size, muscle mass, or nutritional status, or are non- or non-. According to the National Kidney Foundation, irrespective of diagnosis, the stage of the disease is based on the level of kidney function: Stage Description GFR(mL/min/1.73 m(2)) 1 Kidney damage with normal or decreased GFR 90 2 Kidney damage with mild decrease in GFR 60-89 3 Moderate decrease in GFR 30-59 4 Severe decrease in GFR 15-29 5 Kidney failure <15 (or dialysis) 10 FASTING 10 HOUR 11 It is recognized that currently available assays for the detection of antibodies to HIV-1 and/or HIV-2 may not detect all infected individuals. HIV antibodies may be undetectable in some stages of the infection and in some clinical conditions. The performance of this assay has not been established for populations of infants or children. Assayed by Chemiluminescence Microparticle Immunoassay on the Siemens Advia Centaur CP. Values obtained with different methods or kits cannot be used interchangeably.The diagnostic specificity of the ADVIA Centaur 1/O/2 Enhanced assay in the low risk population was 99.90% (6052/6058) with a 95% confidence interval of 99.78 to 99.96%. 12 Copy Result to: IVAN BATISTA ([id number]) 13 Copy Result to: IVAN BATISTA ([id number]) 14 Because ethnic data is not always readily available, this report includes an eGFR for both -Americans and non- Americans. The National Kidney Disease Education Program (NKDEP) does not endorse the use of the MDRD equation for patients that are not between the ages of 18 and 70, are , have extremes of body size, muscle mass, or nutritional status, or are non- or non-. According to the National Kidney Foundation, irrespective of diagnosis, the stage of the disease is based on the level of kidney function: Stage Description GFR(mL/min/1.73 m(2)) 1 Kidney damage with normal or decreased GFR 90 2 Kidney damage with mild decrease in GFR 60-89 3 Moderate decrease in GFR 30-59 4 Severe decrease in GFR 15-29 5 Kidney failure <15 (or dialysis) 15 Desirable <150 Borderline high 150-199 High 200-499 Very High >500 16 Desirable <200 Borderline high 200-239 High >239 17 Low <40 Desirable: 40-60 High: >60 18 Desirable: <100 mg/dL Near Optimal: 100-129 mg/dL Borderline High: 130-159 mg/dL High: 160-189 mg/dL Very High: >189 mg/dL 19 Acute inflammation: >10.00 20 FASTING 10 HOUR 21 Therapeutic target for the treatment of diabetes Mellitus patients is <7% HBA1C, and in selective patients <6.0%.Please refer to [place] [employer] Diabetic care guidelines for further information. 22 Because ethnic data is not always readily available, this report includes an eGFR for both -Americans and non- Americans. The National Kidney Disease Education Program (NKDEP) does not endorse the use of the MDRD equation for patients that are not between the ages of 18 and 70, are , have extremes of body size, muscle mass, or nutritional status, or are non- or non-. According to the National Kidney Foundation, irrespective of diagnosis, the stage of the disease is based on the level of kidney function: Stage Description GFR(mL/min/1.73 m(2)) 1 Kidney damage with normal or decreased GFR 90 2 Kidney damage with mild decrease in GFR 60-89 3 Moderate decrease in GFR 30-59 4 Severe decrease in GFR 15-29 5 Kidney failure <15 (or dialysis) 23 Desirable <150 Borderline high 150-199 High 200-499 Very High >500 24 Desirable <200 Borderline high 200-239 High >239 25 Low <40 Desirable: 40-60 High: >60 26 Desirable <100 Near Optimal 100-129 Borderline high 130-159 High 160-189 Very High >189 27 The detection limit for Valproic Acid is 10.0 mcg/ml . Values less than 10.0 mcg/ml cannot be accurately measured. 28 Toxic levels: greater than 150 mcg/ml @ 4hr post ingest Greater than 50 mcg/ml @ 12hr post ingest The detection limit for acetaminophen is 10.0 mcg/ml . Values less than 10.0 mcg/ml cannot be accurately measured. 29 The detection limit for Ethanol is 10.0 mg/dl . Values less than 10.0 mg/dl cannot be accurately measured. 30 Because ethnic data is not always readily available, this report includes an eGFR for both -Americans and non- Americans. The National Kidney Disease Education Program (NKDEP) does not endorse the use of the MDRD equation for patients that are not between the ages of 18 and 70, are , have extremes of body size, muscle mass, or nutritional status, or are non- or non-. According to the National Kidney Foundation, irrespective of diagnosis, the stage of the disease is based on the level of kidney function: Stage Description GFR(mL/min/1.73 m(2)) 1 Kidney damage with normal or decreased GFR 90 2 Kidney damage with mild decrease in GFR 60-89 3 Moderate decrease in GFR 30-59 4 Severe decrease in GFR 15-29 5 Kidney failure <15 (or dialysis) 31 The urine specimen was tested at the listed cutoffs: Drug class test level (ng/ml) Amphetamines 300 Barbituates 200 Benzodiazepine metabolites 200 Cocaine metabolites 300 Cannabinoids 25 Opiates 200 Pcp 25 This is a screening procedure. Positive results are not confirmed. Specimen was received without chain of custody. Results should be used for medical purposes only. Procedures Date CPT Code Description Status 02/24/2017 Colonoscopy Completed 01/09/201796885 Inject/Drain Joint/Bursa Major Completed 09/07/2016 83258 Inject/Drain Joint/Bursa Major Completed 04/27/2015 94931 Stress Test Completed 04/02/2015 96727 EKG Tracing & Interpretation Completed 02/26/2015 32018 Polysomnography Sleep Staging 4+ Parameters W/Cpap Completed 02/23/2015 47419 Diffusing Capacity Completed 02/23/2015 19683 Plethysmography Determination Lung Volumes & Per Completed Airway Resist 02/23/2015 17891 Pulmonary Function><Bronchodil Completed 04/04/2014 16151 EKG Tracing & Interpretation Completed 01/19/2014 05887 Polysomnography Sleep Staging 4+ Parameters W/Cpap Completed 11/30/2012 14314 Xray Knee 3 Views Completed 11/30/2012 13300 Rad Exam; Knee, Ap&L Completed Encounters Type Date Location Provider CPT E/M Dx Office Visit 03/06/2017 1:40p [facility] Internal Andrew Mayo, 36280 M17.11 Medicine - [place] Ed[place] Schreiber,FACP E66.01 L20.9 R10.11 Office Visit 12/21/2016 2:40p [facility] [place] [address] L73.8 L72.8 D23.5 Office Visit 12/01/2016 2:20p [facility] Internal Andrew Mayo, 43410 Z00.01 Medicine - [place] Edgardo Schreiber,FACP R73.01 E83.42 E66.01 D48.5 Z12.11 M54.42 B00.89 Z23 Office Visit 07/08/2016 2:40p [facility] [place] [address] L03.116 [place] Office Visit 01/25/2016 3:40p [facility] [place] [address] L30.9 R25.3 J06.9 R30.0 Office Visit 01/14/2016 3:00p [facility] [place] [address] E66.09 F25.9 Office Visit 12/14/2015 3:15p [facility] M.D. 07391 M17.11 [facility] Office Visit 10/26/2015 3:30p [facility] [address] G47.33 Services Of [facility] E66.09 Office Visit 10/21/2015 3:00p [facility] M.D. 72835 M17.11 [facility] M17.12 Office Visit 07/15/2015 3:00p [facility] Internal Andrew Mayo, 50002 Z00.01 Medicine - [place] Edgardo Schreiber,FACP G47.33 F25.9 B35.3 Z11.4 E66.09 Office Visit 06/18/2015 2:30p [facility] [address] G47.33 [facility] E66.09 Office Visit 04/02/2015 2:40p [facility] Internal Medicine Andrew Mayo, [address]93 R07.9 - [address] [facility] E66.09 F25.9 M31.6 L85.3 Office Visit 03/19/2015 3:30p [facility] [address] G47.33 [facility] E66.09 Office Visit 03/18/2015 2:45p [facility] M.D. 82292 M17.11 [facility] M75.31 Office Visit 01/15/2015 3:45p [facility] [place] [address] G47.33 [facility] E66.09 Z77.22 Office Visit 09/08/2014 2:30p [facility] Internal [place] [address] 782.1 [place] 709.8 v06.1 Office Visit 08/22/2014 2:30p [facility] Internal [place] [address] 111.2 [place] 782.1 Office Visit 07/21/2014 2:00p [facility] [place] [address] 111.2 [place] 786.50 786.05 724.2 782.0 Office Visit 05/23/2014 2:30p [facility] Internal [place] [address] Office Visit 05/02/2014 2:30p [facility] Internal [place] [address] Office Visit 04/04/2014 3:00p [facility] [place] [address] 724.2 110.4 Office Visit 02/18/2014 3:30p [facility] [place] [address] 465.8 [place] 465.9 Office Visit 12/19/2013 11:00a Pul[facility] [address] 327.23 Services Of [facility] 278.01 Office Visit 12/02/2013 10:45a [facility] M.D. 64073 716.96 [facility] Office Visit 07/18/2013 2:40p [facility] Internal Medicine - William Banda, 80226 789.09 Paulo Schreiber Office Visit 05/20/2013 4:40p [facility] Internal Medicine - Andrew Mayo, 10678 461.1 Paulo Schreiber,[facility] Office Visit 05/16/2013 3:20p [facility] Internal Medicine - Andrew Mayo, 28567 716.96 Paulo Schreiber,[facility] 455.3 790.21 278.00 272.2 Office Visit 11/30/2012 9:30a [facility] M.D. 11414 716.96 [facility] Office Visit 11/28/2012 1:40p [facility] Internal Medicine - Felix Garcia, 34282 278.01 Paulo Schreiber V70.0 457.1 Office Visit 11/06/2012 1:20p [facility] Internal Medicine Felix Garcia, 11156 703.0 - Paulo Schreiber 685.1 717.83 724.2 278.01 V76.44 457.1 709.9 327.23 Plan of Care Future Appointment(s):04/17/2017 2:15 pm - [facility] Carv[facility]al M.D. at [facility]03/15/2017 - [facility] Carvajal M.D.M17.11 Unilateral primary osteoarthritis, right kneeNew Xrays:Kneeright 4+ VWSFollow up:Follow up: PRN in April Knee exercises: Leg raises for 5 seconds each lying on your back and on your stomach. Do 20 lifts in each position Knee bending and straightening for 7-10 repetitions OK to use the Nebumetome from Dr. Mayo Use your cane as needed OK to consider the bariatric surgery
[2017-04-07 15:16] VITALS: BP 133/85
--- NOTE | 2017-04-07 15:52 | UC ---
Headache HPI - HPI Summary HPI Summary: Patient states that he is concerned that about 3 weeks ago he was bending over forward infront of open closet and hit his head on the back calkboard wall of the closet. His coat was in between which padded the impact. He did not think much of it until he started getting some sharp short lived pains in lines on scalp about 2 times a week happening about 3 times a day for some seconds at a time. Denies any associated symptoms such as visual disturbances, nausea, vomiting. hemicranial pain, photo/phonophobia or constitutional symptoms. Patient states he receives acupuncture and oftentimes pain is along the lines where the needles are inserted. Sometimes pain appears when he is not receiving the acupuncture. States pain is 5/5, no radiation to neck even though he has baseline musculoskeletal pain. Denies taking any coumadin or aspirin. He takes NSAIDS for knee pain. - History Of Current Complaint Chief Complaint: UCGeneralIllness Stated Complaint: POSS CONCUSSION Time Seen by Provider: 04/07/17 15:19 Pain Intensity: 5 - Allergies/Home Medications Allergies/Adverse Reactions: Allergies Allergy/AdvReac Type Severity Reaction Status Date / Time MAO inhibitors Allergy unk Uncoded 04/07/17 15:02 Home Medications: Home Medications Magnesium Oxide TAB* [MagOx 400 TAB*] 400 mg PO DAILY 04/07/17 [History Confirmed 04/07/17] Nabumetone TAB* [Relafen TAB*] 750 mg PO BID 04/07/17 [History Confirmed ] clonazePAM TAB(*) [Klonopin TAB(*)] 1 mg PO BEDTIME 04/07/17 [History Confirmed 04/07/17] fluPHENAZine HCL TAB* [Prolixin TAB*] 10 mg PO DAILY 04/07/17 [History Confirmed 04/07/17] traZODone TAB* [Desyrel TAB*] 50 mg PO BEDTIME 04/07/17 [History Confirmed 04/07] PMH/Surg Hx/FS Hx/Imm Hx Previously Healthy: Yes Psychological History: Bipolar Disorder - Surgical History Surgical History: Yes Surgery Procedure, Year, and Place: arthroscopy right knee 2000 - Family History Known Family History: Positive: Other - sleep apnea - Social History Alcohol Use: None Alcohol Amount: 20years sober Substance Use Type: None Smoking Status (MU): Never Smoked Tobacco Type: Cigarettes Have You Smoked in the Last Year: No When Did the Patient Quit Smoking/Using Tobacco: 2 yrs ago Review of Systems Constitutional: Negative Neurological: Headache All Other Systems Reviewed And Are Negative: Yes Physical Exam Triage Information Reviewed: Yes Appearance: Well-Appearing, Obese Vital Signs: Initial Vital Signs Temp 97.5 F 04/07/17 15:10 Pulse 91 04/07/17 15:10 Resp 16 04/07/17 15:10 BP 133/85 04/07/17 15:10 Pulse Ox 96 04/07/17 15:10 Vital Signs Reviewed: Yes Eye Exam: Normal Eyes: Positive: Conjunctiva Clear ENT Exam: Normal ENT: Positive: Normal ENT inspection Dental Exam: Normal Neck exam: Normal Respiratory Exam: Normal Cardiovascular Exam: Normal Abdominal Exam: Normal Bowel Sounds: Positive: Present Musculoskeletal Exam: Normal Neurological Exam: Other - CN II-XII grossly intact, No ataxia, FROMx4, strength 5x4, romberg negative, nistagmus negative Neurological: Positive: Alert, Muscle Tone Normal Headache Course/Dx - Course Course Of Treatment: Follow up with PCP regarding headaches, possible discontinuation of scalp acupuncture - Differential Dx/Diagnosis Provider Diagnoses: Scalp pain/Headaches Discharge - Discharge Plan Condition: Stable Disposition: HOME Patient Education Materials: Acute Headache (DC) Referrals: Andrew Mayo MD [Primary Care Provider] -
== END 2017-04-07 16:00 | disposition home or self-care (01) ==
LOC: UCEAST 14:56
DX: R51 Headache (principal); Z87.891 Personal history of nicotine dependence; F31.9 Bipolar disorder, unspecified; W22.8XXA Striking against or struck by other objects, initial encounter; Y92.9 Unspecified place or not applicable
CPT/HCPCS: 99211; G0463

== ENCOUNTER 2018-04-11 13:05 | Emergency (ER) | payer MEDICARE, MEDICAID ==
--- OUTSIDE RECORDS SUMMARY | 2018-04-11 13:21 | XMS REPORT | Continuity of Care Document ---
:1965 External Reference #:[id number] Author Name Singh, Ruth Care Team Providers Name Role Phone William Banda III, MD Primary Care Physician Unavailable Payers Date Identification Numbers Payment Provider Subscriber Policy Number: [id number] Medicare Janett Hess PayID: [id number] [address] [place] [address] Effective: 2012 Policy Number: [id number] Medicaid Janett Hess Group Name: [id number] [address] PayID: [id number] [place] [address] Expires: 2016 Policy Number: 70% [employer] Janett Hess PayID: [id number] [address] Advance Directives Description No Information Available Problems Date Description Provider Status Onset: 11/06/2012 Low back pain Felix Garcia M.D. Active Onset: 11/06/2012 Morbid obesity Felix Garcia M.D. Active Onset: 11/06/2012 Lymphedema Felix Garcia M.D. Active Onset: 11/06/2012 Obstructive sleep apnea syndrome Felix Garcia M.D. Active Onset: 04/02/2015 Schizoaffective disorder Aretha Charles M.D.FACP Onset: 12/14/2015 Localized, primary osteoarthritis Alton Carvajal M.D. 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 Inactive Inactive: 05/16/2013 Onset: 11/06/2012 Disorder of skin and/or Felix Garcia M.D. Inactive subcutaneous tissue Inactive: 04/02/2015 Onset: 01/15/2015 Personal history finding Silva Rivera MD Inactive Inactive: 04/02/2015 Onset: 01/15/2015 Obesity Silva Rivera MD Inactive Inactive: 04/02/2015 Onset: 11/06/2012 Pilonidal cyst without abscess Felix Garcia M.D. Resolved Resolved: 04/06/2014 Onset: 11/06/2012 Old anterior cruciate ligament Felix Garcia M.D. Resolved disruption Resolved: 04/06/2014 Family History Date Family Member(s) Observation Comments Father Pancreatitis Father Diabetes Type II Father Roberson's Onset: (age 71 Years) Mother Alive And Well Siblings 2 Second Brother Mental Illness NOS ? 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 04/02/2015 Selegiline Active contraindicated when on Zyprexa 11/06/2012 NKDA Inactive 12/19/2013 NKDA Inactive 03/19/2015 NKDA Inactive Medications Medication Date Status Form Strength Qnty SIG Indications Ordering Provider Doxycycline 03/28/ Active Tablets 100mg 20tab 1 by mouth Andrew Childress 2019 s twice a Barak Mayo, day M.D.,FACP Cpap Supplies 12/15/ Active Pls G47.33 2017 provide MD Miguel with necessary cpap supplies, mask to fit, tubing, head gear, filters Triamcinolone 03/06/ Active Cream 0.1% 30gm apply L20.9 Andrew Acetonide 2017 every day Barak Mayo, as needed M.DRachel,FACP for cheek/ches t Nabumetone 03/06/ Active Tablets 750mg 180ta Take 1 M17.11 2017 bs Tablet By MD Blayne Mouth Twice A Day as Needed Right Knee Brace 01/09/ Active M17.11 Dirk With Hinges 2016 Candie Carvajal Magnesium Oxide 12/01/ Active Tablets 400mg 90tab Take 1 2016 s Tablet By MD Blayne Mouth Every Day In The Evening Betamethasone 01/18/ Active Ointment 0.05% 90gm apply thin L30.9 Simba Bonner Dipropionate 2016 layer Barak Mayo, twice M.D.,FACP daily for rash on leg Hinge Knee Brace 07/26/ Active 1 hinge Monique 2016 knee brace AMY Valentine Depakote ER 03/16/ Active Tablets 500mg 3 by mouth Unknown 2015 ER 24HR every night at bedtime Proair HFA 01/15/ Active Aerosol 108(90Bas 3unit 1 puff Z77.22 Silva 2014 e) s every 6 MD Miguel mcg/Act hours as needed Diphenhydramine 01/14/ Active Capsules 25mg 2 tab by Unknown HCL 2014 mouth at bedtime Metformin HCL 01/14/ Active Tablets 500mg 2 by mouth Unknown 2014 twice a day Clonazepam 05/23/ Active Tablets 0.5mg 2 by mouth Jl 2014 in the AMY Vang evening Tizanidine HCL 04/04/ Active Capsules 4mg 90cap Take One 724.2 Jl 2014 s Tablet By AMY Vang Mouth Three Times Daily F0R Back Pain & Muscle Spasm Trazodone HCL / Active Tablets 50mg 30tab 1 tablet Unknown 0000 s at bedtime as needed Fluphenazine HCL / Active Tablets 10mg 2 by mouth Unknown 0000 at bedtime Tylenol Extra 00/ Active Tablets 500mg takes a Unknown Strength 0000 total of 2-3000 prn Turmeric / Active Tablets 500mg Unknown 0000 Loratadine / Active Capsules 10mg 1 by mouth Unknown 0000 every day Glucosamine / Active 1 by mouth Unknown Chondroitin 0000 two times per day Vitamin D3 / Active 1 by mouth Unknown 0000 one time per day Urea / Active Cream 20% topical B35.3 Unknown 0000 every day Urea 03/05/ Hx Cream 40% 85gm topical B35.3 2018 - every day MD Blayne 03/28/ to heels 2018 (ok to let patient pay out of pocket) Valtrex 12/01/ Hx Tablets 1gm 21tab 1 po q8h Andrew 2017 - s for 1 week Barak Mayo, 12/08/ Candie,FACP 2016 Azithromycin 11/21/ Hx Tablets 250mg 6tabs two tabs Other 2016 - day one, Ordering 11/26/ one daily Provider 2017 till gone Benzonatate 11/21/ Hx Capsules 100mg 30cap one by Other 2017 - s mouth Ordering 11/29/ three Provider 2017 times daily as needed for cough Cephalexin 07/05/ Hx Tablets 500mg 40tab 1 by mouth Other 2017 - s qid x 10 Ordering 07/15/ days Provider 2017 Knee Brace/Hinged 06/15/ Hx Misc 1unit One hinged Dirk Bars Large 2017 - s knee Wei, 03/28/ Candie alvarado 2019 please measure for sizing Azithromycin 01/24/ Hx Tablets 250mg 6tabs 2 tabs by J06.9 Jose 2016 - mouth on [place], 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 Maria Esther, 03/06/ day as Candie,FACP 2018 needed Urea / Hx Cream 20% 85gm apply at L85.3 Andrew 2016 - bedtime Barak Mayo, / M.D.,FACP 2016 [...] 500mg 60tab Take One Andrew 2014 - Tablet By Barak Mayo, 04/13/ Mouth Two M.D.,FACP 2016 Times Daily as Needed Triamcinolone 08/05/ Hx Cream 0.1% 80gm apply Jl Acetonide 2014 - twice a AMY Vang 01/24/ day to 2016 affected area Ketoconazole 07/21/ Hx Cream 2% 1unit apply once L30.9 Jose 2014 - s daily to AMY Cano 01/18/ affected 2016 areas x two weeks. Hydrocodone-Aceta 05/23/ Hx Tablets 7.5-325mg 45tab 1-2 tabs 724.2 Jl izquierdo 2014 - s by mouth AMY Vang 07/21/ q6 hours 2014 as needed pain Hydrocodone-Aceta 05/01/ Hx Tablets 5-325mg 30tab 1-2 tabs Jl izquierdo 2014 - s by mouth AMY Vang 05/23/ q4 hours 2014 as needed pain limit 6 tabs per day Clonazepam 04/04/ Hx Tablets 1mg 1/2-1 by Jl 2014 - mouth AMY Vang 05/23/ twice a 2014 day as needed Skelaxin 04/04/ Hx Tablets 800mg 60tab 1 tab by 724.2 Jl 2014 - s mouth AMY Vang 04/04/ three 2015 times a day as needed pain/muscl e spasm Nystatin 04/04/ Hx Cream [id number] 1unit apply B35.3 Jl 2014 - t/GM s twice per AMY Vang 07/14/ day for 2016 two weeks or untill symptoms resolve Amoxicillin 05/20/ Hx Tablets 500mg 40tab 2 tabs by 461.1 Andrew 2013 - s mouth Barak Mayo, 07/18/ twice a M.D.,FACP 2013 day for 10 days Nitro-bid 05/16/ Hx Ointment 2% 15g apply 455.3 Andrew 2013 - small Barak Mayo, 07/21/ amount to M.D.,FACP 2014 anal fissure bid prn Furosamide 11/28/ Hx Tablets 20 30tab 1 po qd 457.1 Felix 2012 - s Pachikara, 05/16/ M.D. 2013 Quetiapine / Hx Tablets 400mg 30tab take 1 Unknown Fumarate 0000 - s tablet 05/16/ every 2013 evening Divalproex Sodium / Hx Tablets 500mg 60tab 3 tabs by Unknown ER 0000 - ER 24HR s mouth hs 03/16/ 2016 directed Ropinirole HCL / Hx Tablets 1mg 60tab take one Unknown 0000 - s by mouth 05/16/ at bedtime 2013 Clonazepam / Hx Tablets 0.5mg 60tab 1 by mouth Unknown 0000 - s twice a 04/04/ day as 2015 needed Benadryl 00/ Hx Capsules 25mg 30cap 1 by mouth Unknown 0000 - s at at 07/18/ bedtime 2013 Fluphenazine HCL / Hx Tablets 5mg 1 po qhs Unknown - 2014 Gabapentin /00/ Hx Capsules 100mg 90cap 1 po qhs Unknown 0000 - s 2014 Naproxen // Hx Tablets 500mg 1 by mouth Unknown 0000 - twice a 07/21/ day as 2015 needed Lamictal /00/ Hx Tablets 25mg 1 tab hs Unknown - 2014 Tylenol Extra / Hx Tablets 500mg as needed Unknown Strength - 2014 Ibuprofen /00/ Hx Capsules 200mg as needed Unknown - 2014 Medications Administered in Office Medication Date Status Form Strength Qnty SIG Indications Ordering Provider Depomedrol Administered Injection Dirk Wei, 40MG 018 M.D. Depomedrol Administered Injection Dirk Wei, 40MG 017 M.D. Depomedrol Administered Injection Dirk Wei, 40MG 017 M.D. Immunizations CPT Code Status Date Vaccine Lot # [id number] Given 11/10/2017 Influenza Virus Vaccine, Quadrivalent, Split, Preservative Free 64675 Given 09/17/2017 Zoster (Shingles) Vaccine (HZV), Recombinant, Subunit, Adjuvanted 03320 Given 06/29/2017 Zoster (Shingles) Vaccine (HZV), Recombinant, Subunit, Adjuvanted 61812 Given 12/01/2016 Influenza Virus Vaccine, Quadrivalent, Split, [id number] Preservative Free 01202 Given 12/16/2014 Flu Vaccine Split Virus Preservative Free For Indiv 3Yr Older 63359 Given 09/08/2014 Tdap - Tetanus/Diptheria/Acellular Pertussis [id number] 98195 Given 11/26/2013 Flu Vaccine Split Virus Preservative Free For Indiv [id number] 3Yr Older Vital Signs Date Vital Result Comment 03/28/2018 1:54pm Height 67.25 inches 5'7.25" Weight 305.50 lb Heart Rate 96 /min BP Systolic 139 mmHg BP Diastolic 86 mmHg Body Temperature 96.9 F O2 % BldC Oximetry 99 % BMI (Body Mass Index) 47.5 kg/m2 02/28/2018 2:05pm Height 67.25 inches 5'7.25" Weight 307.38 lb Heart Rate 86 /min BP Systolic Sitting 134 mmHg Rue large cuff BP Diastolic Sitting 78 mmHg Rue large cuff Respiratory Rate 16 /min O2 % BldC Oximetry 98 % On Ra BMI (Body Mass Index) 47.8 kg/m2 12/11/2017 1:28pm Height 67.25 inches 5'7.25" Weight 303.00 lb Heart Rate 82 /min BP Systolic 134 mmHg BP Diastolic 80 mmHg Respiratory Rate 18 /min Pain Level 3 BMI (Body Mass Index) 47.1 kg/m2 07/19/2017 2:02pm Height 67.25 inches 5'7.25" Weight 303.00 lb BP Systolic Sitting 138 mmHg BP Diastolic Sitting 82 mmHg Respiratory Rate 16 /min Body Temperature 97.6 F Pain Level 6 BMI (Body Mass Index) 47.1 kg/m2 04/24/2017 2:00pm Height 67.25 inches 5'7.25" Weight 305.00 lb BP Systolic 130 mmHg BP Diastolic 82 mmHg Respiratory Rate 18 /min Pain Level 4 BMI (Body Mass Index) 47.4 kg/m2 03/15/2017 2:15pm Height 67.25 inches 5'7.25" Weight 305.00 lb BP Systolic 123 mmHg BP Diastolic 72 mmHg Respiratory Rate 15 /min Pain Level 7 BMI (Body Mass Index) 47.4 kg/m2 03/06/2017 1:30pm Weight 309.00 lb Heart Rate 93 /min BP Systolic Sitting 125 mmHg BP Diastolic Sitting 72 mmHg Body Temperature 98.2 F O2 % BldC Oximetry 94 % 01/09/2017 3:02pm Height 67.25 inches 5'7.25" Weight 307.00 lb Respiratory Rate 18 /min Pain Level 8 BMI (Body Mass Index) 47.7 kg/m2 12/01/2016 2:06pm Height 67.25 inches 5'7.25" Weight 307.00 lb Heart Rate 95 /min BP Systolic Sitting 130 mmHg BP Diastolic Sitting 80 mmHg Body Temperature 97.6 F O2 % BldC Oximetry 96 % BMI (Body Mass Index) 47.7 kg/m2 09/07/2016 3:34pm Height 68 inches 5'8" Weight 317.00 lb Respiratory Rate 18 /min Body Temperature 97.8 F Pain Level 7 BMI (Body Mass Index) 48.2 kg/m2 07/08/2016 2:56pm Weight 313.00 lb Heart Rate 81 /min BP Systolic Sitting 128 mmHg BP Diastolic Sitting 80 mmHg Body Temperature 97.0 F O2 % BldC Oximetry 98 % 01/25/2016 3:57pm Heart Rate 97 /min BP Systolic Sitting 154 mmHg recheck 140/90 BP Diastolic Sitting 90 mmHg recheck 140/90 Body Temperature 97.5 F O2 % BldC Oximetry 97 % 01/14/2016 2:52pm Height 68 inches 5'8" Weight 315.50 lb Heart Rate 102 /min BP Systolic Sitting 116 mmHg BP Diastolic Sitting 66 mmHg Body Temperature 97.1 F O2 % BldC Oximetry 96 % BMI (Body Mass Index) 48.0 kg/m2 12/14/2015 3:20pm Height 68 inches 5'8" Weight 317.00 lb Pain Level 0 BMI (Body Mass Index) 48.2 kg/m2 10/26/2015 3:31pm Height 68 inches 5'8" Weight 317.00 lb Heart Rate 97 /min BP Systolic 124 mmHg BP Diastolic 76 mmHg Respiratory Rate 14 /min O2 % BldC Oximetry 98 % BMI (Body Mass Index) 48.2 kg/m2 07/15/2015 2:54pm Height 68 inches 5'8" Weight 310.00 lb Heart Rate 98 /min BP Systolic Sitting 118 mmHg BP Diastolic Sitting 70 mmHg Body Temperature 97.3 F O2 % BldC Oximetry 97 % BMI (Body Mass Index) 47.1 kg/m2 06/18/2015 2:29pm Height 68 inches 5'8" Weight 309.00 lb reported Heart Rate 98 /min BP Systolic 130 mmHg BP Diastolic 80 mmHg Respiratory Rate 16 /min O2 % BldC Oximetry 98 % BMI (Body Mass Index) 47.0 kg/m2 04/02/2015 2:11pm Height 68 inches 5'8" Weight 301.00 lb Heart Rate 110 /min BP Systolic Sitting 142 mmHg BP Diastolic Sitting 92 mmHg Body Temperature 97.5 F O2 % BldC Oximetry 96 % BMI (Body Mass Index) 45.8 kg/m2 03/19/2015 3:34pm Height 68 inches 5'8" Weight 300.00 lb Heart Rate 97 /min BP Systolic 126 mmHg BP Diastolic 72 mmHg O2 % BldC Oximetry 97 % BMI (Body Mass Index) 45.6 kg/m2 03/18/2015 2:47pm Height 68 inches 5'8" Weight 300.00 lb Heart Rate 72 /min Respiratory Rate 18 /min Pain Level 4 BMI (Body Mass Index) 45.6 kg/m2 01/15/2015 4:04pm Height 68 inches 5'8" Weight 300.00 lb Heart Rate 88 /min BP Systolic 124 mmHg BP Diastolic 78 mmHg Respiratory Rate 14 /min O2 % BldC Oximetry 98 % BMI (Body Mass Index) 45.6 kg/m2 09/08/2014 2:37pm Weight 293.75 lb Heart Rate 82 /min BP Systolic Sitting 126 mmHg BP Diastolic Sitting 80 mmHg Body Temperature 97.7 F Pain Level 0 O2 % BldC Oximetry 98 % 08/22/2014 2:23pm Weight 294.00 lb Heart Rate 82 /min BP Systolic Sitting 128 mmHg BP Diastolic Sitting 82 mmHg O2 % BldC Oximetry 98 % 07/21/2014 2:01pm Weight 287.25 lb Heart Rate 90 /min BP Systolic Sitting 122 mmHg BP Diastolic Sitting 78 mmHg Body Temperature 97.9 F Pain Level 5 O2 % BldC Oximetry 98 % 05/23/2014 2:48pm Weight 290.50 lb Heart Rate 101 /min BP Systolic Sitting 118 mmHg BP Diastolic Sitting 74 mmHg Body Temperature 97.6 F O2 % BldC Oximetry 98 % 05/02/2014 2:44pm Height 68 inches 5'8" Weight 306.00 lb Heart Rate 104 /min BP Systolic Sitting 136 mmHg BP Diastolic Sitting 72 mmHg Pain Level 8 8/10 O2 % BldC Oximetry 96 % BMI (Body Mass Index) 46.5 kg/m2 04/04/2014 2:49pm Weight 305.38 lb Heart Rate 88 /min BP Systolic Sitting 122 mmHg BP Diastolic Sitting 78 mmHg Body Temperature 97.4 F O2 % BldC Oximetry 98 % 02/18/2014 3:41pm Weight 302.00 lb Heart Rate 81 /min BP Systolic Sitting 136 mmHg BP Diastolic Sitting 73 mmHg Body Temperature 97.2 F O2 % BldC Oximetry 98 % 12/19/2013 11:03am Height 68 inches 5'8" Weight 303.00 lb Heart Rate 88 /min BP Systolic Sitting 134 mmHg BP Diastolic Sitting 66 mmHg Respiratory Rate 20 /min O2 % BldC Oximetry 98 % BMI (Body Mass Index) 46.1 kg/m2 Neck Circumference in inches 19 12/02/2013 11:04am Height 68 inches 5'8" Weight 300.00 lb Heart Rate 84 /min BP Systolic 137 mmHg BP Diastolic 85 mmHg BMI (Body Mass Index) 45.6 kg/m2 07/18/2013 2:55pm Weight 289.00 lb Heart Rate 78 /min BP Systolic Sitting 112 mmHg BP Diastolic Sitting 72 mmHg Body Temperature 98.0 F 05/20/2013 4:48pm Weight 292.25 lb Heart Rate 88 /min BP Systolic Sitting 130 mmHg BP Diastolic Sitting 78 mmHg Body Temperature 97.3 F 05/16/2013 2:43pm Weight 292.00 lb Heart Rate 78 /min BP Systolic Sitting 122 mmHg BP Diastolic Sitting 80 mmHg 11/30/2012 9:51am Height 70 inches 5'10" Weight 300.00 lb Heart Rate 102 /min BP Systolic 167 mmHg BP Diastolic 88 mmHg BMI (Body Mass Index) 43.0 kg/m2 11/28/2012 1:34pm Height 67 inches 5'7" Weight 306.00 lb Heart Rate 105 /min BP Systolic Sitting 110 mmHg BP Diastolic Sitting 80 mmHg BMI (Body Mass Index) 47.9 kg/m2 11/06/2012 1:47pm Height 67 inches 5'7" Weight 303.00 lb Heart Rate 101 /min BP Systolic Sitting 134 mmHg BP Diastolic Sitting 84 mmHg BMI (Body Mass Index) 47.5 kg/m2 Results Test Date Facility Test Result H/L Range Note Laboratory test 10/02/2017 [facility] Valproic Acid 72.0 g/mL N 50-[address] (Depakene) [place] [address] [phone] CBC Auto Diff 05/01/2017 [facility] White Blood 8.0 10^3/uL N 3.5-10.[address] [place] [address] [phone] Red Blood Count 4.62 10^6/uL N 4.0-5.4 Hemoglobin 13.8 g/dL Low 14.0-18.0 Hematocrit 42 % N 42-52 Mean Corpuscular Volume 90 fL N 80-94 Mean Corpuscular Hemoglobin 30 pg N 27-31 Mean Corpuscular HGB Conc 33 g/dL N 31-36 Red Cell Distribution Width 14 % N 10.5-15 Platelet Count 237 10^3/uL N 150-450 Mean Platelet Volume 8.0 um3 N 7.4-10.4 Abs Neutrophils 4.0 10^3/uL N 1.5-7.7 Abs Lymphocytes 3.1 10^3/uL N 1.0-4.8 Abs Monocytes 0.6 10^3/uL N 0-0.8 Abs Eosinophils 0.2 10^3/uL N 0-0.6 Abs Basophils 0.1 10^3/uL N 0-0.2 Abs Nucleated RBC 0 10^3/uL Granulocyte % 50.4 % N 38-83 Lymphocyte % 38.7 % N 25-47 Monocyte % 7.7 % High 0-7 Eosinophil % 2.4 % N 0-6 Basophil % 0.8 % N 0-2 Nucleated Red Blood Cells % 0.1 Laboratory test 05/01/2017 [facility] Hemoglobin A1c 5.6 % N 4.0-5.6 [address] [place] [address] [phone] Comp Metabolic 05/01/2017 [facility] Sodium 134 N 133-[address] mmol/[place] [address] [phone] Potassium 4.7 mmol/L N 3.5-5.0 Chloride 100 mmol/L Low 101-111 Co2 Carbon Dioxide 27 mmol/L N 22-32 Anion Gap 7 mmol/L N 2-11 Glucose 95 mg/dL N 70-100 Blood Urea Nitrogen 12 mg/dL N 6-24 Creatinine 0.84 mg/dL N 0.67-1.17 BUN/Creatinine Ratio 14.3 N 8-20 Calcium 9.6 mg/dL N 8.6-10.3 Total Protein 6.6 g/dL N 6.4-8.9 Albumin 4.1 g/dL N 3.2-5.2 Globulin 2.5 g/dL N 2-4 Albumin/Globulin Ratio 1.6 N 1-3 Total Bilirubin 0.30 mg/dL N 0.2-1.0 Alkaline Phosphatase 40 U/L N 34-104 Alt 27 U/L N 7-52 Ast 18 U/L N 13-39 Egfr Non- 96.7 >60 Egfr 124.4 >60 2 Iron & Iron Binding 05/01/2017 [facility] Iron 116 g/dL N 50 -[address] [place] [address] [phone] Unsaturated Iron Binding 318 g/dL Total Iron Binding Capacity 434 g/dL N 250-450 Transferrin 310 mg/dL N 203-362 % Iron Saturation 27 % N 15-55 Laboratory test 05/01/2017 [facility] Ferritin 33.9 ng/mL N 24 -[address] [place] [address] [phone] Folic Acid (Folate) > 20.00 ng/mL >3.99 Vitamin B12 636 pg/mL N 180-914 3 Vitamin D Total 25(Oh) 21.5 ng/mL N 20-50 Vitamin B1 (Whole Blood) 139 nmol/L 70-180 4 Vitamin E Level 9.2 mg/L 5.5 - 17.0 5 Laboratory test 02/24/2017 [facility] Surgical SEE RESULT [address] [place] [place] [address] [phone] Laboratory test 02/24/2017 [facility] Point of Care 88 mg/dL N 70-10 [address] Glucose 0 [place], [place] [id number] [phone] CBC Auto Diff 01/09/2017 [facility] White Blood 11.1 High 3.5- [address] Count 10^3/uL 0.8 [place] [address] [phone] Red Blood Count 4.77 10^6/uL N 4.0-5.4 Hemoglobin 14.2 g/dL N 14.0-18.0 Hematocrit 43 % N 42-52 Mean Corpuscular Volume 90 fL N 80-94 Mean Corpuscular Hemoglobin 30 pg N 27-31 Mean Corpuscular HGB Conc 33 g/dL N 31-36 Red Cell Distribution Width 14 % N 10.5-15 Platelet Count 266 10^3/uL N 150-450 Mean Platelet Volume 8 um3 N 7.4-10.4 Abs Neutrophils 6.4 10^3/uL N 1.5-7.7 Abs Lymphocytes 3.4 10^3/uL N 1.0-4.8 Abs Monocytes 0.9 10^3/uL High 0-0.8 Abs Eosinophils 0.3 10^3/uL N 0-0.6 Abs Basophils 0.1 10^3/uL N 0-0.2 Abs Nucleated RBC 0.01 10^3/uL Granulocyte % 58.2 % N 38-83 Lymphocyte % 30.7 % N 25-47 Monocyte % 8.2 % N 1-9 Eosinophil % 2.4 % N 0-6 Basophil % 0.5 % N 0-2 Nucleated Red Blood Cells % 0.1 Laboratory test 01/09/2017 [facility] Erythrocyte Sed 12 mm/Hr N 0-[address] [place] [address] [phone] C Reactive Protein 4.41 mg/L N < 5.00 8 Lipid Profile 11/14/2016 [facility] Triglycerides 107 mg/dL N 9 (Trig/Chol/HDL) [address] [place] [address] [phone] Cholesterol 172 mg/dL N 10 HDL Cholesterol 40.1 mg/dL N 11 LDL Cholesterol 111 mg/dL N 12 Laboratory test 11/14/2016 [facility] Valproic Acid 85.0 g/mL N 50-100 [address] (Depakene) [place] [address] [phone] Comp Metabolic 11/14/2016 [facility] Sodium 134 mmol/L N 133- 145 Panel [address] [place] [address] [phone] Potassium 4.6 mmol/L N 3.5-5.0 Chloride 100 mmol/L Low 101-111 Co2 Carbon Dioxide 29 mmol/L N 22-32 Anion Gap 5 mmol/L N 2-11 Glucose 103 mg/dL High 70-100 Blood Urea Nitrogen 17 mg/dL N 6-24 Creatinine 0.81 mg/dL N 0.67-1.17 BUN/Creatinine Ratio 21.0 High 8-20 Calcium 9.4 mg/dL N 8.6-10.3 Total Protein 6.3 g/dL Low 6.4-8.9 Albumin 3.8 g/dL N 3.2-5.2 Globulin 2.5 g/dL N 2-4 Albumin/Globulin Ratio 1.5 N 1-3 Total Bilirubin 0.30 mg/dL N 0.2-1.0 Alkaline Phosphatase 45 U/L N 34-104 Alt 15 U/L N 7-52 Ast 12 U/L Low 13-39 Egfr Non- 100.9 N >60 Egfr 129.7 N >60 14 Laboratory test 11/14/2016 [facility] Magnesium 1.8 mg/dL Low 1.9-2.7 15 finding [address] [place] [address] [phone] Laboratory test 09/28/2016 [facility] Potassium 4.3 mmol/L N 3.5-5.0 finding [address] [place] [address] [phone] Magnesium 1.9 mg/dL N 1.9-2.7 Ua Routine 01/25/2016 [facility] Ua Specific [place] 1.020 Ua PH 5 Ua Color yellow Ua Appera clear Ua WBC trace Ua Protein trace Ua Glucose normal Ua Ketones + Ua Bilirubin neg Ua Urobilinogen normal Ua Nitrite neg Ua Occult Blood neg HIV 1/2 AB 01/04/2016 [facility] HIV 1 2 Nonreactive N Nonreactive 16 Evaluation [address] [facility] [place] [address] [phone] Laboratory 01/04/2016 [facility] Valproic 87.0 g/mL N 50- 100 17 test finding [address] [facility] [place] [address] (Depakene) [phone] TSH (Thyroid Stim Horm) 2.69 mcIU/mL N 0.34-5.60 18 Comp Metabolic Panel 04/03/2015 [facility] Sodium 138 mmol/L N 133-145 [address] [place] [address] [phone] Potassium 4.7 mmol/L N 3.5-5.0 Chloride 102 mmol/L N 101-111 Co2 Carbon Dioxide 29 mmol/L N 22-32 Anion Gap 7 mmol/L N 2-11 Glucose 89 mg/dL N 70-100 Blood Urea Nitrogen 14 mg/dL N 6-24 Creatinine 0.83 mg/dL N 0.67-1.17 BUN/Creatinine Ratio 16.9 N 8-20 Calcium 9.5 mg/dL N 8.6-10.3 Total Protein 6.6 g/dL N 6.4-8.9 Albumin 4.1 g/dL N 3.2-5.2 Globulin 2.5 g/dL N 2-4 Albumin/Globulin Ratio 1.6 N 1-3 Total Bilirubin 0.20 mg/dL N 0.2-1.0 Alkaline Phosphatase 51 U/L N 34-104 Alt 16 U/L N 7-52 Ast 16 U/L N 13-39 Egfr Non- 98.9 N >60 Egfr 127.2 N >60 19 Lipid Profile 04/03/2015 [facility] Triglycerides 154 mg/dL N 20 (Trig/Chol/HDL) [address] [place] [place], [place] [id number] [phone] Cholesterol 194 mg/dL N 21 HDL Cholesterol 43.2 mg/dL N 22 LDL Cholesterol 120 mg/dL N 23 Laboratory test 04/03/2015 [facility] Valproic Acid 81.0 g/mL N 50-100 finding [address] [facility] (Depakene) [place] [address] [phone] Erythrocyte Sed Rate 18 mm/Hr High 0-14 C Reactive Protein 6.13 mg/L High < 5.00 24 Liver Function 05/23/2014 [facility] Total Protein 6.8 g/dL N 6.4-8.9 Panel [address] [place] [address] [phone] Albumin 4.4 g/dL N 3.2-5.2 Globulin 2.4 g/dL N 2-4 Albumin/Globulin Ratio 1.8 N 1-3 Total Bilirubin 0.40 mg/dL N 0.2-1.0 Direct Bilirubin 0.10 mg/dL N 0.03-0.18 Indirect Bilirubin 0.3 mg/dL N 0.3-1.0 Alkaline Phosphatase 41 U/L N 34-104 Alt 16 U/L N 7-52 Ast 16 U/L N 13-39 Laboratory test 12/17/2013 [facility] Valproic Acid 86 g/mL N 50.0-100.0 finding [address] [place] [address] [phone] Lipid Profile 11/26/2013 [facility] Triglycerides 123 N 25, 26 (Trig/Chol/HDL) [address] [facility] mg/[place] [address] [phone] Cholesterol 160 mg/dL N 27 HDL Cholesterol 44.6 mg/dL N 28 LDL Cholesterol 91 mg/dL N 29 Basic Metabolic Panel 11/26/2013 [facility] Sodium 137 mmol/L N 133-145 [address] [place] [address] [phone] Potassium 4.8 mmol/L N 3.7-5.6 Chloride 104 mmol/L N 101-111 Co2 Carbon Dioxide 30 mmol/L N 22-32 Anion Gap 3 mmol/L N 2-11 Glucose 86 mg/dL N 70-100 Blood Urea Nitrogen 13 mg/dL N 6-24 Creatinine 0.91 mg/dL N 0.67-1.17 BUN/Creatinine Ratio 14.3 N 8-20 Calcium 9.4 mg/dL N 8.6-10.3 Egfr Non- 89.3 N >60 Egfr 114.8 N >60 30 Laboratory test 11/26/2013 [facility] Hemoglobin A1c 6.1 % High Less than [address] [place] [address] [phone] Urinalysis 12/10/2012 [facility] Urine Color Yellow [address] [place] [address] [phone] Urine Appearance Clear Urine Specific [place] 1.015 1.010-1.030 Urine Esterase Negative Negative Urine Nitrate Negative Negative Urine Urobilinogen Negative E.U./dL Negative Urine Protein Negative mg/dL Negative Urine pH 6.0 5-9 Urine Blood Negative Negative Urine Ketones Negative mg/dL Negative Urine Bilirubin Negative Negative Urine Glucose Negative mg/dL Negative Laboratory test 12/10/2012 [facility] Valproic 0.7 g/mL Low 50.0-100.0 [address] [place] [address] [phone] Acetaminophen < 10 g/mL Low 10-30 33 Alcohol < 10 mg/dL Less Than 10 34 Salicylate < 4.0 Less Than 30 TSH (Thyroid Stimulating Horm) 2.34 miu/mL 0.34-5.60 Comp Metabolic Panel 12/10/2012 [facility] Sodium 136 mmol/L 133-[address] [place] [address] [phone] Potassium 4.8 mmol/L 3.5-5.0 Chloride 104 mmol/L [...] Egfr Non- 90.8 >60 Egfr 116.8 >60 35 CBC Auto Diff 12/10/2012 [facility] White Blood 10.0 10^3/uL 4.8-10.[address] [place] [address] [phone] Red Blood Count 4.53 10^6/uL 4.0-5.4 Hemoglobin [...] Red Blood Cells % 0 Urine Drug 12/10/2012 [facility] Amphetamine Ur None Detected None Detect SCR ED & [address] [place] [address] [phone] Barbiturates Urine Screen None Detected None Detect Benzodiazepine Urine Screen None Detected None Detect Urine Cannabinoids Screen None Detected None Detect Urine Cocaine Screen None Detected None Detect Urine Opiates Screen None Detected None Detect Urine Phencyclidine Screen None Detected None Detect 36 1 Therapeutic target for the treatment of diabetes mellitus patients is <7% HBA1C, and in selective patients <6.0%. Please refer to [place] [employer] diabetic care guidelines for further information. 2 Because ethnic data is not always readily [...] 15-29 5 Kidney failure <15 (or dialysis) 3 Normal Range 180 to 914 Indeterminate Range 145 to 180 Deficient Range <145 4 ADDITIONAL INFORMATION This test was developed and its performance characteristics determined by [facility] in a manner consistent with CLIA requirements. This test has not been cleared or approved by the U.S. Food and Drug Administration. Test Performed by: [facility] - [address] [id number] 5 ADDITIONAL INFORMATION This test was developed and its performance characteristics determined by [facility] in a manner consistent with CLIA requirements. This test has not been cleared or approved by the U.S. Food and Drug Administration. Test Performed by: [facility] - [address] [address] 6 SEE RESULT BELOW Name: JANETT HESS : [address]: Danica Arias DO Acct: [id number] Unit: [id number] AGE: 51 Location: OR Re02/24/17 SEX: M Status: CHACORTA CURTIS SPEC: [id number] ELIF: 02/24/17- SUBM DR: Danica Arias DO REQ: [id number] RECD: 02/24/17 STATUS: GOMEZ CASSIDY DR: Andrew [...] performed at Main Lab DEPARTMENT OF PATHOLOGY, [address] [place] [address] Martin Bernal M.D. Director [facility] # [id number] [address] Bailiff Or Sheriff: [id number] Acute inflammation: >10.00 9 Desirable <150 Borderline high 150-199 High 200-499 Very High >500 10 Desirable <200 Borderline high 200-239 High >239 11 Low <40 Desirable: 40-60 High: >60 12 Desirable: <100 mg/dL Near Optimal: 100-129 mg/dL Borderline High: 130-159 mg/dL High: 160-189 mg/dL Very High: >189 mg/dL 13 FASTING 10 HOUR 14 Because ethnic data is not always [...] 5 Kidney failure <15 (or dialysis) 15 FASTING 10 HOUR 16 It is recognized that currently available assays [...] 95% confidence interval of 99.78 to 99.96%. 17 Copy Result to: IVAN BATISTA ([id number]) 18 Copy Result to: IVAN BATISTA ([id number]) 19 Because ethnic data is not always readily [...] 15-29 5 Kidney failure <15 (or dialysis) 20 Desirable <150 Borderline high 150-199 High 200-499 Very High >500 21 Desirable <200 Borderline high 200-239 High >239 22 Low <40 Desirable: 40-60 High: >60 23 Desirable: <100 mg/dL Near Optimal: 100-129 mg/dL Borderline High: 130-159 mg/dL High: 160-189 mg/dL Very High: >189 mg/dL 24 Acute inflammation: >10.00 25 FASTING 10 HOUR 26 Desirable <150 Borderline high 150-199 High 200-499 Very High >500 27 Desirable <200 Borderline high 200-239 High >239 28 Low <40 Desirable: 40-60 High: >60 29 Desirable <100 Near Optimal 100-129 Borderline high 130-159 High 160-189 Very High >189 30 Because ethnic data is not always [...] 5 Kidney failure <15 (or dialysis) 31 Therapeutic target for the treatment of diabetes Mellitus patients is <7% HBA1C, and in selective patients <6.0%.Please refer to [place] [employer] Diabetic care guidelines for further information. 32 The detection limit for Valproic Acid is 10.0 mcg/ml . Values less than 10.0 mcg/ml cannot be accurately measured. 33 Toxic levels: greater than 150 mcg/ml @ 4hr post ingest Greater than 50 mcg/ml @ 12hr post ingest The detection limit for acetaminophen is 10.0 mcg/ml . Values less than 10.0 mcg/ml cannot be accurately measured. 34 The detection limit for Ethanol is 10.0 mg/dl . Values less than 10.0 mg/dl cannot be accurately measured. 35 Because ethnic data is not always readily [...] 15-29 5 Kidney failure <15 (or dialysis) 36 The urine specimen was tested at the listed cutoffs: Drug class test level (ng/ml) Amphetamines 300 Barbituates 200 Benzodiazepine metabolites 200 Cocaine metabolites 300 Cannabinoids 25 Opiates 200 Pcp 25 This is a screening procedure. Positive results are not confirmed. Specimen was received without chain of custody. Results should be used for medical purposes only. Procedures Date Code Description Status 12/11/2017 Inject/Drain Joint/Bursa Major W/O US Completed 02/24/2017 62477531 Colonoscopy Completed 01/09/2017 Inject/Drain Joint/Bursa Major W/O US Completed 09/07/2016 Inject/Drain Joint/Bursa Major W/O US Completed 04/27/2015 82194 Stress Test Completed 04/02/2015 68305 EKG Tracing & Interpretation Completed 02/26/2015 18533 Polysomnography Sleep Staging 4+ Parameters W/Cpap Completed 02/23/2015 50378 Diffusing Capacity Completed 02/23/2015 60552 Plethysmography Determination Lung Volumes & Per Airway Completed Resist 02/23/2015 80002 Pulmonary Function><Bronchodil Completed 04/04/2014 42656 EKG Tracing & Interpretation Completed 01/19/2014 35137 Polysomnography Sleep Staging 4+ Parameters W/Cpap Completed 11/30/2012 62559 Xray Knee 3 Views Completed 11/30/2012 26700 Rad Exam; Knee, Ap&L Completed Encounters Type Date Location Provider Dx Diagnosis Office Visit 03/28/2018 [facility] Internal Andrew Cancino R06.02 Shortness of 2:00p Medicine - Tbliz Mayo M.D.,FACP breath Rd J01.90 Acute sinusitis, unspecified M16.12 Unilateral primary osteoarthritis, left hip Office Visit 02/28/2018 [facility] Ida G47.33 Obstructive sleep 2:30p [facility] Vo, RN, apnea (adult) [facility] RADAR SIGNAL PROCESSING ENGINEER-BC (pediatric) R06.02 Shortness of breath E66.01 Morbid (severe) obesity due to excess calories Z68.42 Body mass index (BMI) 45.0-49.9, adult Office Visit 12/11/2017 Orthopedic Alton Carvajal, M16.12 Unilateral primary 1:30p Services Of [facility] osteoarthritis, left C.M.A. hip M17.11 Unilateral primary osteoarthritis, right knee Office Visit 07/19/2017 Jessie Carvajal M17.11 Unilateral primary 2:15p Services Of MBella osteoarthritis, right C.M.A. knee Office Visit 04/24/2017 Jessie Carvajal M17.11 Unilateral primary 2:15p Services Of MRachelDRachel osteoarthritis, right C.M.A. knee M21.161 Varus deformity, not elsewhere classified, right knee Office Visit 03/15/2017 Jessie Carvajal M17.11 Unilateral primary 2:15p Services Of [facility]ella osteoarthritis, right C.M.A. knee E66.3 Overweight Office Visit 03/06/2017 [facility] Internal Andrew Cancino M17.11 Unilateral primary 1:40p Juliet Mayo M.D.,FACP osteoarthritis, right [address] knee E66.01 Morbid (severe) obesity due to excess calories L20.9 Atopic dermatitis, unspecified R10.11 Right upper quadrant pain Office Visit 12/21/2016 2:40p [facility] Dermatology Jacob Albert, L73.8 Other specified MD follicular disorders L72.8 Other follicular cysts of the skin and subcutaneous tissue D23.5 Other benign neoplasm of skin of trunk Office Visit 12/01/2016 2:20p [facility] Internal Andrew Cancino Z00.01 Encounter for Juliet Mayo M.D.,FACP general adult [address] medical exam w abnormal findings R73.01 Impaired fasting glucose E83.42 Hypomagnesemia E66.01 Morbid (severe) obesity due to excess calories D48.5 Neoplasm of uncertain behavior of skin Z12.11 Encounter for screening for malignant neoplasm of colon M54.42 Lumbago with sciatica, left side B00.89 Other herpesviral infection Z23 Encounter for immunization Office Visit 07/08/2016 2:40p [facility] Internal Calderon Bekah, L03.116 Cellulitis of left Medicine - STUDENT SUPPORT SERVICES DIRECTOR lower limb [place] Office Visit 01/25/2016 3:40p [facility] Internal Jose R31.9 Hematuria, Medicine - [place], STUDENT SUPPORT SERVICES DIRECTOR unspecified Rd L30.9 Dermatitis, unspecified R25.3 Fasciculation J06.9 Acute upper respiratory infection, unspecified R30.0 Dysuria Office Visit 01/14/2016 3:00p [facility] Internal Jose British, L30.9 Dermatitis , Medicine - [place] STUDENT SUPPORT SERVICES DIRECTOR [address] Rd E66.09 Other obesity due to excess calories F25.9 Schizoaffective disorder, unspecified Office Visit 12/14/2015 Orthopedic Alton Carvajal, M17.11 Unilateral primary 3:15p Services [facility] osteoarthritis, C.M.A. right knee Office Visit 10/26/2015 [facility] Silva G47.33 Obstructive sleep 3:30p Sleep Services Of MD Miguel apnea (adult) [facility] (pediatric) E66.09 Other obesity due to excess calories Office Visit 10/21/2015 Orthopedic Alton Carvajal M17.11 Unilateral primary 3:00p [facility] osteoarthritis, right C.M.A. knee M17.12 Unilateral primary osteoarthritis, left knee Office Visit 07/15/2015 3:00p [facility] Internal Andrew Cancino Z00.01 Encounter for Juliet Mayo M.D.,FACP general adult [address] medical exam w abnormal findings G47.33 Obstructive sleep apnea (adult) (pediatric) F25.9 Schizoaffective disorder, unspecified B35.3 Tinea pedis Z11.4 Encounter for screening for human immunodeficiency virus E66.09 Other obesity due to excess calories Office Visit 06/18/2015 2:30p [facility] G47.33 Obstructive sleep Sleep Services Of MD Miguel apnea (adult) [facility] (pediatric) E66.09 Other obesity due to excess calories Office Visit 04/02/2015 2:40p [facility] Internal Andrew Cancino R07.9 Chest pain, Juliet Mayo M.D.,FACP unspecified [address] E66.09 Other obesity due to excess calories F25.9 Schizoaffective disorder, unspecified M31.6 Other giant cell arteritis L85.3 Xerosis cutis Office Visit 03/19/2015 3:30p [facility] G47.33 Obstructive sleep Sleep [facility] Of MD Miguel apnea (adult) [facility] (pediatric) E66.09 Other obesity due to excess calories Office Visit 03/18/2015 Orthopedic Dirk Wei, M17.11 Unilateral primary 2:45p Services [facility] [place] osteoarthritis, right C.M.A. knee M75.31 Calcific tendinitis of right shoulder Office Visit 01/15/2015 3:45p [facility] G47.33 Obstructive sleep Sleep Services Of MD Miguel apnea (adult) [facility] (pediatric) E66.09 Other obesity due to excess calories Z77.22 Cntct w and expsr to environ tobacco smoke (acute) (chronic) Office Visit 09/08/2014 2:30p [facility] Internal Jl Vang NP 782.1 Rash & Other Medicine - Nonspec Skin [place] Eruption 709.8 Skin Disorders Other Spec v06.1 Qlwzzmcjwk-Rmkvgfw-Weiubwgo Combined (DTaP) Office Visit 08/22/2014 2:30p [facility] Internal Jl Vang NP 111.2 Tinea Lindsay Medicine - [place] 782.1 Rash & Other Nonspec Skin [place] Office Visit 07/21/2014 2:00p [facility] Internal Jl Vang, STUDENT SUPPORT SERVICES DIRECTOR 111.2 Tinea Lindsay Medicine - [place] 786.50 Pain Chest Unspec 786.05 Shortness Of Breath 724.2 Lumbago 782.0 Skin Sensation Disturbance Office Visit 05/23/2014 2:30p [facility] Internal Jl Vang STUDENT SUPPORT SERVICES DIRECTOR 724.2 Lumbago Medicine - [address] Office Visit 05/02/2014 2:30p [facility] Internal Jl Vang STUDENT SUPPORT SERVICES DIRECTOR 724.2 Lumbago Medicine - [address] Office Visit 04/04/2014 3:00p [facility] Internal Jl Vang STUDENT SUPPORT SERVICES DIRECTOR 786.50 Pain Chest Medicine - [address] Un[address] 724.2 Lumbago 110.4 Dermatophytosis Foot Office Visit 02/18/2014 3:30p [facility] Internal Jl Vang, 465.8 Upper Respiratory Medicine - STUDENT SUPPORT SERVICES DIRECTOR Infections Acute [place] Other Multiple Sites 465.9 URI Upper Respiratory Infections Acute Unspec Sites Office Visit 12/19/2013 11:00a Pulmonology [facility] 327.23 Obstructive Sleep Sleep Services Of MD Miguel Apnea Adult & [facility] Pediatric 278.01 Obesity Morbid Office Visit 12/02/2013 10:45a Orthopedic Alton Carvajal 716.96 Arthropathy Unspec Services Of [facility] Lower Leg C.M.A. Office Visit 07/18/2013 2:40p [facility] Internal William Beckman 789.09 Pain Abdominal Juliet Banda M.D. Other Spec Site [place] Office Visit 05/20/2013 4:40p [facility] Internal Andrew Cancino 461.1 Sinusitis Acute Juliet - Kimberly Mayo M.D.,FACP Office Visit 05/16/2013 3:20p [facility] Internal Andrew Cancino 716.96 Arthropathy Unspec Juliet - Jerrica Mayo Leg Paulo Schreiber,FACP 455.3 Hemorrhoids External W/O Complication 790.21 Impaired Fasting Glucose 278.00 Obesity Unspec 272.2 Hyperlipidemia Mixed Office Visit 11/30/2012 9:30a Orthopedic Alton Carvajal 716.96 Arthropathy Unspec Services Of [facility] Lower Leg C.M.A. Office Visit 11/28/2012 1:40p [facility] Internal Felix 278.01 Obesity Morbid Medicine - Paulo Garcia M.D. 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 at [facility] Internal Medicine - Nqnfndjjg60/20/2019 - Andrew Mayo M.D., FACPR06.02 Shortness of breathComments:Complete CT of chest as discussed.J01.90 Acute sinusitis, unspecifiedComments:Begin taking Doxycycline 2x daily until completed.M16.12 Unilateral primary osteoarthritis, left hipNew Therapy: Physical TherapyComments:Follow up with physical therapy as discussed.
--- OUTSIDE RECORDS SUMMARY | 2018-04-11 13:21 | XMS REPORT | Continuity of Care Document ---
:1965 External Reference #:[id number] Author Name Romelia Leavitt O.D. Address [address] [facility] [place] [address] Care Team Providers Name Role Phone William Banda M.D. Primary Care Physician Unavailable Payers Date Identification Numbers Payment Provider Subscriber Policy Number: [id number] Medicare - NGS Adam Hess PayID: [id number] [address] [place] [address] Policy Number: [id number] Medicaid Adam Hess PayID: [id number] [address] [place] [address] Advance Directives Description No Information Available Problems Date Description Provider Status Onset: Schizoaffective disorder, bipolar Active type Onset: Prediabetes Active Onset: Sleep apnea Active Onset: 04/09/2018 Impaired fasting glycaemia Romelia Leavitt O.D. Active Onset: 04/09/2018 Regular astigmatism Romelia Leavitt O.D. Active Onset: 04/09/2018 Presbyopia Romelia Leavitt O.D. Active Onset: 04/09/2018 Myopia Romelia Leavitt O.D. Active Onset: 04/09/2018 Tear film insufficiency Romelia Leavitt O.D. Active Family History Date Family Member(s) Observation Comments Father No Current Problems Mother No Current Problems Social History Type Date Description Comments Sex Unknown Marital Status Single Work Status Disabled ETOH Use Denies alcohol use Recreational Drug Use Denies Drug Use Tobacco Use Start: Unknown End: Unknown Patient is a former smoker Smoking Status Reviewed: 04/09/18 Patient is a former smoker Allergies, Adverse Reactions, Alerts Date Description Reaction Status Severity Comments 04/09/2018 NKDA Active 04/09/2018 Alcohol Active for consumption Medications Medication Date Status Form Strength Qnty SIG Indications Ordering Provider Klonopin Active Tablets 1mg twice Unknown 000 daily Metformin HCL Active Tablets 1000mg 2 daily Unknown 000 Tizanidine HCL Active Capsules 4mg daily Unknown 000 Trazodone HCL Active Tablets 50mg once Unknown 000 daily Fluphenazine HCL Active Tablets 10mg twice Unknown 000 daily Diphenhydramine Active Capsules 25mg twice Unknown HCL 000 daily Nabumetone Active Tablets 750mg 2 daily Unknown 000 [address] S[address] Active Tablets [address] 500mg 3 daily Unknown 000 Magnesium Active Tablets 400mg daily Unknown 000 Tumeric Active 500 mg Unknown 000 4 daily Glucosamine Active Capsules 1500Com Unknown Chondroitin 1500 000 Complex Vitamin D3 Active Tablets Unknown Complete 000 Depakote ER Hx Tablets ER 500mg Unknown 000 - 24HR 019 Meloxicam Hx Tablets 7.5mg Unknown 000 - 019 Immunizations Description No Information Available Vital Signs Description No Information Available Results Description No Information Available Procedures Description No Information Available Encounters Description No Information Available Plan of Treatment 04/09/2018 - Romelia Leavitt O.D.H04.123 Dry eye syndrome of bilateral lacrimal glandsComments:Smoking can increase the risk of developing or worsening any eye related disease, as well as affect your overall health. If you are a smoker, we strongly recommend that you quit.If you are not a smoker, we strongly recommend that you do not start. Use a hot compress for 5-10 minutes with lid massageat the end 1 x dayUse artificial tears, Systane/Refresh are good brands, both eyes 3-4 x day or more as neededFollow up:1 Year Follow Up You can expect to have your eyes dilated at your next visit. If Dr. Leavitt orders any additional testing, it may require extra time. We recommend that you bring sunglasses, as dilation drops often make you light sensitive until they wear off. We always recommend you bring someone to drive you home if you are uncomfortable driving with your eyes dilated. If you have any questions before your next visit, feel free to call our office at .H52.4 PresbyopiaComments:You have presbyopia. This is when the lens in your eye loses the ability to change focus, and happens as we age. A pair of reading glasses will help you see up close.H52.223 Regular astigmatism, bilateralComments:You have an astigmatism. Astigmatism is a common vision condition that happens when a person's cornea is not symmetrical. Dr. Leavitt has given you a prescription to correct for this.R73.01 Impaired fasting glucose
[2018-04-11 13:31] VITALS: BP 139/82
--- NOTE | 2018-04-11 13:46 | UC ---
Throat Pain/Nasal Chetan HPI - HPI Summary HPI Summary: Sore throat for the past 5 days. He states he just finished a course of antibiotics for a sinus infection and then started getting a sore throat. He states he has no suicidal or homicidal ideation today. - History of Current Complaint Chief Complaint: UCRespiratory Stated Complaint: THROAT Time Seen by Provider: 04/11/18 13:30 Hx Obtained From: Patient Onset/Duration: Gradual Onset Severity: Mild Pain Intensity: 6 Cough: None Associated Signs & Symptoms: Positive: Negative. Negative: Fever - Epiglottits Risk Factors Epiglottis Risk Factors: Negative - Allergies/Home Medications Allergies/Adverse Reactions: Allergies Allergy/AdvReac Type Severity Reaction Status Date / Time MAO inhibitors Allergy unk Uncoded 04/11/18 13:32 Home Medications: Home Medications Cholecalciferol (Vitamin D3) [Vitamin D3] 1,000 unit PO DAILY 04/11/18 [History Confirmed 04/11/18] Divalproex Sodium [Depakote] 1,500 mg PO QPM 04/11/18 [History Confirmed ] Elderberry Fruit/Honey [Little Remedies Cough-Immune] 1 dose PO ONCE PRN [History Confirmed 04/11/18] Glucosam/Chond-MSM 2/C/D3/Cedric [Cxnchsrxtz-Ajeqqtaiity-JND Tab] 1 tab PO DAILY 04/11/18 [History Confirmed 04/11/18] PMH/Surg Hx/FS Hx/Imm Hx Previously Healthy: Yes - Denies chronic disease Psychological History: Other - Occasionally has suicidal and/or homicidal thoughts but none today or recently - Surgical History Surgical History: Yes Surgery Procedure, Year, and Place: arthroscopy right knee 2000. left hip arthritis - Family History Known Family History: Positive: Other - sleep apnea - Social History Alcohol Use: None Alcohol Amount: 20years sober Substance Use Type: None Smoking Status (MU): Never Smoked Tobacco Type: Cigarettes Have You Smoked in the Last Year: No When Did the Patient Quit Smoking/Using Tobacco: 2 yrs ago Review of Systems All Other Systems Reviewed And Are Negative: Yes Constitutional: Positive: Negative Skin: Positive: Negative Eyes: Positive: Negative ENT: Positive: Sore Throat - 5 days of sore throat Respiratory: Positive: Negative Cardiovascular: Positive: Negative Gastrointestinal: Positive: Negative Genitourinary: Positive: Negative Motor: Positive: Negative Neurovascular: Positive: Negative Musculoskeletal: Positive: Negative Neurological: Positive: Negative Psychological: Positive: Negative Is Patient Immunocompromised?: No Physical Exam Triage Information Reviewed: Yes Appearance: Well-Appearing, No Pain Distress, Well-Nourished Vital Signs: Initial Vital Signs Temp 96.9 F 04/11/18 13:24 Pulse 98 04/11/18 13:24 Resp 18 04/11/18 13:24 BP 139/82 04/11/18 13:24 Pulse Ox 99 04/11/18 13:24 Vital Signs Reviewed: Yes Eye Exam: Normal ENT: Positive: Pharyngeal erythema - Mild right tonsillar erythema, Uvula midline. Negative: Tonsillar swelling, Tonsillar exudate, Trismus Neck exam: Normal Neck: Positive: Supple, Nontender, No Lymphadenopathy Respiratory Exam: Normal Cardiovascular Exam: Normal Musculoskeletal Exam: Normal Neurological Exam: Normal Psychological Exam: Normal Skin Exam: Normal Throat Pain/Nasal Course/Dx - Course Course Of Treatment: Comfortable here. Rapid strep negative. - Differential Dx/Diagnosis Differential Diagnosis/HQI/PQRI: Pharyngitis Provider Diagnosis: Pharyngitis Discharge - Sign-Out/Discharge Documenting (check all that apply): Patient Departure All imaging exams completed and their final reports reviewed: No Studies - Discharge Plan Condition: Good Disposition: HOME Patient Education Materials: Pharyngitis (ED) Referrals: William Banda MD [Primary Care Provider] - Additional Instructions: Warm salt water gargles, increase fluids, throat lozenges. Follow up with your primary care provider in 3-4 days if no improvement - Billing Disposition and Condition Condition: GOOD Disposition: Home
== END 2018-04-11 14:20 | disposition home or self-care (01) ==
LOC: UCEAST 13:05
DX: J02.9 Acute pharyngitis, unspecified (principal); Z88.8 Allergy status to other drugs, medicaments and biological substances
CPT/HCPCS: 87651; 99211; G0463

== ENCOUNTER 2018-12-30 14:36 | Emergency (ER) | payer MEDICARE, MEDICAID ==
--- OUTSIDE RECORDS SUMMARY | 2018-12-30 14:40 | XMS REPORT | Continuity of Care Document ---
:1965 External Reference #:[id number] Author Name Prasanna Pitts M.D. (transmitted by agent of provider Joe Martines) Address [address] [address] Care Team Providers Name Role Phone Felix Garcia MD - Internal Care Team Information [employer] Salesperson [phone] Medicine Nam Ulrich MD - Psychiatry Care Team Information [employer] Salesperson [facility] - Care Team Information [employer] Salesperson Rover Tender William Banda III, MD - Internal Care Team Information [employer] Salesperson Medicine Problems Active Problems Provider Date Low back pain Felix Garcia M.D. Onset: 11/06/2012 Morbid obesity Felix Garcia M.D. Onset: 11/06/2012 Lymphedema Felix Garcia M.D. Onset: 11/06/2012 Obstructive sleep apnea syndrome Felix Garcia M.D. Onset: 11/06/2012 Schizoaffective disorder Andrew Mayo M.D.,FACP Onset: 04/02/2015 Localized, primary osteoarthritis Alton Carvajal M.D. Onset: 12/14/2015 Note: bilat knee Impaired fasting glycaemia nAdrew Mayo M.D.,[place] Onset: 12/01/2016 Ex-smoker Andrew Mayo M.D.,[place] Onset: 12/01/2016 Localized, primary osteoarthritis of Alton Carvajal M.D. 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 Selegiline contraindicated when on Zyprexa 04/02/2015 Inactive Allergies NKDA 11/06/2012 NKDA 12/19/2013 NKDA 03/19/2015 Medications Active Medications SIG Qnty Indications Ordering Date Provider Benztropine Mesylate One tab po at Unknown 12/20/2018 1mg night Tablets Walker M17.11 Alton Carvajal, 11/14/2018 Candie Miralax take 1 packet 30units William Beckman 08/29/2018 3350NF Packet daily as needed Candie Banda for constipation Forearm Crutches M17.11 Alton Carvajal, 05/23/2018 Candie Cpap Supplies Pls provide with G47.33 Silva Rivera, 12/15/2017 necessary cpap supplies, mask to fit, tubing, head gear, filters Triamcinolone apply every day as 30gm L20.9 Andrew Cancino 03/06/2017 Acetonide needed for Candie Mayo,FACP 0.1% Cream cheek/chest Nabumetone take 1 tablet by 180tabs Nila Cancino 03/06/2017 750mg Tablets mouth twice a day Candie Mayo,FACP as needed Right Knee Brace With M17Rachel11 Alton Carvajal, 01/09/2017 Cordells Candie Magnesium Oxide take 1 tablet by 90tabs Andrew Cancino 12/01/2016 400mg mouth every day in Candie Mayo,FACP Tablets the evening Betamethasone apply thin layer 90gm L30.9 Andrew Cancino 01/19/2016 Dipropionate twice daily for Candie Mayo,FACP 0.05% rash on leg Ointment Hinge Knee Brace 1 hinge knee brace Monique 07/27/2015 AMY Valentine Depakote ER 3 by mouth every Unknown 03/16/2015 500mg Tablets night at bedtime ER 24HR Proair HFA 1 puff every 6 3units Z77.22 Silva Nicoleali, 01/15/2015 108(90Base) hours as needed mcg/Act Aerosol Metformin HCL 2 by mouth twice a Unknown 01/14/2015 500mg day Tablets Diphenhydramine HCL 2 tab by mouth at Unknown 01/14/2015 25mg bedtime Capsules Clonazepam 2 by mouth in the Jl Vang NP 05/23/2014 0.5mg Tablets evening Tizanidine HCL Take One Tablet By 90caps 724.2 Jl Vang NP 04/04/2014 4mg Mouth Three Times Capsules Daily F0R Back Pain & Muscle Spasm Trazodone HCL 1 tablet at 30tabs Unknown 50mg bedtime as needed Tablets Fluphenazine HCL 2 by mouth at Unknown 10mg bedtime Tablets Tylenol Extra Strength takes a total of Unknown 2-3000 prn 500mg Tablets Turmeric Unknown 500mg Tablets Loratadine Take 1 Tablet By 90tabs William Beckman 10mg Tablets Mouth Every Day Candie Banda Glucosamine 1 by mouth two Unknown Chondroitin times per day Vitamin D3 1 by mouth one Unknown time per day Urea topical every day B35.3 Unknown 20% Cream CBD Cream Apply to right Unknown knee once or twice daily Medications Administered in Office Medication SIG Qnty Indications Ordering Provider Date Synvisc Or Synvisc-One Injection 1 Alton Carvajal M.D. 11/14/2018 MG Injection Depomedrol 40MG Alton Carvajal M.D. 09/26/2018 Injection Depomedrol 40MG Alton Carvajal M.D. 05/23/2018 Injection Depomedrol 40MG Alton Carvajal M.D. 12/11/2017 Injection Depomedrol 40MG Alton Carvajal M.D. 01/09/2017 Injection Depomedrol 40MG Alton Carvajal M.D. 09/07/2016 Injection Immunizations CPT Code Status Date Vaccine Lot # 29899 Given 11/07/2018 Influenza Virus Vaccine, Quadrivalent, Split, Preservative Free 74086 Given 11/10/2017 Influenza Virus Vaccine, Quadrivalent, Split, Preservative Free 31339 Given 09/17/2017 Zoster (Shingles) Vaccine (HZV), Recombinant, Subunit, Adjuvanted 49551 Given 06/29/2017 Zoster (Shingles) Vaccine (HZV), Recombinant, Subunit, Adjuvanted 49876 Given 12/01/2016 Influenza Virus Vaccine, Quadrivalent, Split, [id number] Preservative Free 10973 Given 12/16/2014 Flu Vaccine Split Virus Preservative Free For Indiv 3Yr Older 33841 Given 09/08/2014 Tdap - Tetanus/Diptheria/Acellular Pertussis [id number] 83402 Given 11/26/2013 Flu Vaccine Split Virus Preservative Free For Indiv [id number] 3Yr Older Vital Signs Date Vital Result Comment 12/21/2018 2:55pm Height 67 inches 5'7" Weight 298.00 lb no shoes Heart Rate 72 /min BP Systolic Sitting 138 mmHg Lue BP Diastolic Sitting 84 mmHg Lue BP Systolic Standing 128 mmHg Lue BP Diastolic Standing 80 mmHg Lue BMI (Body Mass Index) 46.7 kg/m2 12/05/2018 3:23pm Height 67 inches 5'7" Weight 300.00 lb Heart Rate 64 /min BP Systolic 148 mmHg BP Diastolic 86 mmHg Respiratory Rate 17 /min Body Temperature 97.1 F Pain Level 5 BMI (Body Mass Index) 47.0 kg/m2 Results Description No Information Available Procedures Date Code Description Status 12/21/2018 39388 EKG Tracing & Interpretation Completed 11/14/201853934 Inject/Drain Joint/Bursa Major W/O US Completed 09/26/201811734 Inject/Drain Joint/Bursa Major W/O US Completed 04/09/2018 680714030 Diabetic Retinal Eye Exam Completed 02/24/2017 [id number] Colonoscopy Completed Medical Devices Description No Information Available Encounters Type Date Location Provider Dx Diagnosis Office Visit 12/05/2018 [facility] Tiffanie Cueva, M25.561 Pain in right 3:00p at [facility] M.D. knee M25.461 Effusion, right knee M17.11 Unilateral primary osteoarthritis, right knee Office Visit 11/14/2018 [facility] Alton Carvajal, M17.11 Unilateral primary 2:15p Orthopedics at .D. osteoarthritis, right Magnet knee Assessments Date Code Description Provider 12/21/2018 M25.561 Pain in right knee Prasanna Pitts M.D. 12/21/2018 F25.9 Schizoaffective disorder, unspecified Prasanna Pitts M.D. 12/21/2018 R07.89 Chest discomfort Prasanna Pitts M.D. 12/21/2018 E66.9 Obesity Prasanna Pitts M.D. 12/05/2018 M25.561 Pain in right knee Tiffanie Cueva M.D. 12/05/2018 M25.461 Effusion, right knee Tiffanie Cueva M.D. 12/05/2018 M17.11 Unilateral primary osteoarthritis, right Tiffanie Cueva M.D. knee 11/14/2018 M17.11 Unilateral primary osteoarthritis, right Alton Carvajal M.D. knee 09/26/2018 M17.11 Unilateral primary osteoarthritis, right Alton Carvajal M.D. knee Plan of Treatment Future Appointment(s):01/24/2019 2:30 pm - [place] [facility] Schedule at [facility]01/23/2019 3:00 pm - William Banda M.D. at [facility] Internal Medicine - [facility]02/11/2019 2:00 pm - Tiffanie Cueva M.D. at [facility] at Namaxg6902/19/2019 2:30 pm - Tiffanie Cueva M.D. at [facility] at [id number] 2:15 pm - Alton Carvajal M.D. at [facility] at Dovrec5005/01/2019 2:20 pm - William Banda M.D. at [facility] Internal Medicine-Ufuabstrg49/ 22/2020 2:15 pm - Ida Vo DNP, RN, INFORMATION RESOURCES DIRECTOR-BC at [facility]12/21/2018 - Prasanna Pitts M.D.M25.561 Pain in right kneeF25.9 Schizoaffective disorder, ldfspfrledhR77.89 Chest discomfortNew Orders :Lexiscan Nuclear Myoview, Ordered: 12/21/18Echocardiogram, Scheduled: Recommendations:contact Dr. Cueva to obtain preop blood workE66.9 ObesityRecommendations:reduce weight Functional Status Description No Information Available Mental Status Description No Information Available Referrals Description No Information Available
--- OUTSIDE RECORDS SUMMARY | 2018-12-30 14:40 | XMS REPORT | Continuity of Care Document ---
:1965 External Reference #:[id number] Author Name Tiffanie Cueva M.D. (transmitted by agent of provider Davida Morales) Address [address] [place] [address] Care Team Providers Name Role Phone Felix Garcia MD - Internal Care Team Information Prescription Eyeglass Maker [phone] Medicine Nam Ulrich MD - Psychiatry Care Team Information Prescription Eyeglass Maker [phone] [facility] - Care Team Information Prescription Eyeglass Maker [phone] Crinkling Machine Operator William Banda III, MD - Internal Care Team Information Prescription Eyeglass Maker Medicine Problems Active Problems Provider Date Low back pain Felix Garcia M.D. Onset: 11/06/2012 Morbid obesity Felix Garcia M.D. Onset: 11/06/2012 Lymphedema Felix Garcia M.D. Onset: 11/06/2012 Obstructive sleep apnea syndrome Felix Garcia M.D. Onset: 11/06/2012 Schizoaffective disorder Andrew Mayo M.D.,FACP Onset: 04/02/2015 Localized, primary osteoarthritis Alton Carvajal M.D. Onset: 12/14/2015 Note: bilat knee Impaired fasting glycaemia Andrew Mayo M.D.,[place] Onset: 12/01/2016 Ex-smoker Andrew Mayo M.D.,FACP Onset: 12/01/2016 Localized, primary osteoarthritis of Alton [...] Medications SIG Qnty Indications Ordering Date Provider Panda M17.11 Alton Carvajal, 11/14/2018 Candie Miralax take 1 packet 30units William ERachel 08/29/2018 3350NF Packet daily as needed Candie Banda for constipation Forearm Crutches M17.11 Alton Carvajal, 05/23/2018 Candie Cpap Supplies Pls provide with G47.33 Silva Rivera, 12/15/2017 necessary cpap MD supplies, mask to fit, tubing, head gear, filters Triamcinolone apply every day as 30gm L20.9 Andrew Cancino 03/06/2017 Acetonide needed for Candie Mayo,FACP 0.1% Cream cheek/chest Nabumetone take 1 tablet by 180tabs M17.11 Andrew Cancino 03/06/2017 750mg Tablets mouth twice a day Candie Mayo,FACP as needed Right Knee Brace With M17.Tahir Carvajal, 01/09/2017 Aaron Schreiber Magnesium Oxide take 1 tablet by 90tabs Andrew Cancino 12/01/2016 400mg mouth every day in Candie aMyo,FACP Tablets the evening Betamethasone apply thin layer 90gm L30.9 Andrew Cancino 01/19/2016 Dipropionate twice daily for Candie Mayo,FACP 0.05% rash on leg Ointment Hinge Knee Brace 1 hinge knee brace Monique 07/27/2015 AMY Valentine Depakote ER 3 by mouth every Unknown 03/16/2015 500mg Tablets night at bedtime ER 24HR Proair HFA 1 puff every 6 3units Z77.22 Silva Rivera, 01/15/2015 108(90Base) hours as needed mcg/Act Aerosol [...] topical every day B35.3 Unknown 20% Cream Benztropine Mesylate Unknown 1mg Tablets Medications Administered in Office Medication SIG Qnty [...] CPT Code Status Date Vaccine Lot # [id number] Given 11/07/2018 Influenza Virus Vaccine, Quadrivalent, Split, Preservative Free 15433 Given 11/10/2017 Influenza Virus Vaccine, Quadrivalent, Split, Preservative Free 01113 Given 09/17/2017 Zoster (Shingles) Vaccine (HZV), Recombinant, Subunit, Adjuvanted 28075 Given 06/29/2017 Zoster (Shingles) Vaccine (HZV), Recombinant, Subunit, Adjuvanted 33669 Given 12/01/2016 Influenza Virus Vaccine, Quadrivalent, Split, [id number] Preservative Free 94974 Given 12/16/2014 Flu Vaccine Split Virus Preservative Free For Indiv 3Yr Older 96759 Given 09/08/2014 Tdap - Tetanus/Diptheria/Acellular Pertussis [id number] 79138 Given 11/26/2013 Flu Vaccine Split Virus Preservative Free For Indiv [id number] 3Yr Older Vital Signs Date Vital Result Comment 12/05/2018 3:23pm Height 67 inches 5'7" Weight 300.00 lb Heart Rate 64 /min BP Systolic 148 mmHg BP Diastolic 86 mmHg Respiratory Rate 17 /min Body Temperature 97.1 F Pain Level 5 BMI (Body Mass Index) 47.0 kg/m2 11/14/2018 2:00pm Height 67 inches 5'7" Weight 300.00 lb Heart Rate 92 /min BP Systolic 118 mmHg BP Diastolic 72 mmHg Respiratory Rate 16 /min Body Temperature 97.2 F Pain Level 5 BMI (Body Mass Index) 47.0 kg/m2 Results Description No Information Available Procedures Date Code Description Status 11/14/2018 08683 Inject/Drain Joint/Bursa Major W/O US Completed 09/26/201851498 Inject/Drain Joint/Bursa Major W/O US Completed 04/09/2018 900391042 Diabetic Retinal Eye Exam Completed 02/24/2017 11273313 Colonoscopy Completed Medical Devices Description No Information Available Encounters Description No Information Available Assessments Date Code Description Provider 12/05/2018 M25.561 Pain in right knee Tiffanie Cueva M.D. 12/05/2018 M25.461 Effusion, right knee Tiffanie Cueva M.D. 12/05/2018 M17.11 Unilateral primary osteoarthritis, right knee Tiffanie Cueva M.D. 11/14/2018 M17.11 Unilateral primary osteoarthritis, right knee Alton Carvajal M.D. 09/26/2018 M17.11 Unilateral primary osteoarthritis, right knee Alton Carvajal M.D. Plan of Treatment Future Appointment(s):02/13/2019 2:15 pm - Alton Carvajal M.D. at [facility] at Sdgnnf9005/01/2019 2:20 pm - William Banda M.D. at [facility] Internal Medicine-Cpntcdhsv32/22/2020 2:15 pm - Ida Vo DNP, RN, DRILLING AND PRODUCTION SUPERINTENDENT-BC at [facility]12/05/2018 - Tiffanie Cueva M.D.M25.561 Pain in right kneeFollow up:Follow up: 7-10 days before kpbsrfpM51.461 Effusion, right kneeM17.11 Unilateral primary osteoarthritis, right knee Functional Status Description No Information Available Mental Status Description No Information Available Referrals Description No Information Available
--- OUTSIDE RECORDS SUMMARY | 2018-12-30 14:40 | XMS REPORT | Continuity of Care Document ---
:1965 External Reference #:[id number] Author Name Alton Carvajal M.D. (transmitted by agent of provider Kala Shelley) Address [address] [place] [address] Care Team Providers Name Role Phone Felix Garcia MD - Internal Care Team Information Dedicated Intermodal Truck Driver [phone] Medicine Nam Ulrich MD - Psychiatry Care Team Information Dedicated Intermodal Truck Driver [facility] - Care Team Information Dedicated Intermodal Truck Driver Drywall Mechanic William Banda III, MD - Internal Care Team Information Dedicated Intermodal Truck Driver [phone] Medicine Problems Active Problems Provider Date Low [...] Mayo M.D.,[place] Onset: 12/01/2016 Ex-smoker Andrew Mayo M.D.,[place] Onset: 12/01/2016 Localized, primary osteoarthritis of Alton [...] Quit - Age 45 Smoking Status Reviewed: 11/14/18 Former Cigarette Smoker 1 Pack Daily ETOH [...] Candie Miralax take 1 packet 30units William Rk 08/29/2018 3350NF Packet daily as needed Candie [...] CPT Code Status Date Vaccine Lot # [id number] Given 11/07/2018 Influenza Virus Vaccine, Quadrivalent, Split, Preservative Free 05800 Given 11/10/2017 Influenza Virus Vaccine, Quadrivalent, Split, Preservative Free 10311 Given 09/17/2017 Zoster (Shingles) Vaccine (HZV), Recombinant, Subunit, Adjuvanted 73052 Given 06/29/2017 Zoster (Shingles) Vaccine (HZV), Recombinant, Subunit, Adjuvanted 23552 Given 12/01/2016 Influenza Virus Vaccine, Quadrivalent, Split, [id number] Preservative Free 41071 Given 12/16/2014 Flu Vaccine Split Virus Preservative Free For Indiv 3Yr Older 27696 Given 09/08/2014 Tdap - Tetanus/Diptheria/Acellular Pertussis [id number] 65028 Given 11/26/2013 Flu Vaccine Split Virus Preservative Free For Indiv [id number] 3Yr Older Vital Signs Date Vital Result Comment 11/14/2018 2:00pm Height 67 inches 5'7" Weight 300.00 lb Heart Rate 92 /min BP Systolic 118 mmHg BP Diastolic 72 mmHg Respiratory Rate 16 /min Body Temperature 97.2 F Pain Level 5 BMI (Body Mass Index) 47.0 kg/m2 09/26/2018 2:21pm Height 67 inches 5'7" Weight 302.00 lb Heart Rate 80 /min BP Systolic 128 mmHg BP Diastolic 70 mmHg Respiratory Rate 18 /min Pain Level 5 BMI (Body Mass Index) 47.3 kg/m2 Results Description No Information Available Procedures Date Code Description Status 11/14/2018 43887 Inject/Drain Joint/Bursa Major W/O US Completed 09/26/2018 66514 Inject/Drain Joint/Bursa Major W/O US Completed 05/23/201888088 Inject/Drain Joint/Bursa Major W/O US Completed 04/09/2018 [id number] Diabetic Retinal Eye Exam Completed 02/24/2017 [id number] Colonoscopy Completed Medical Devices Description No Information Available Encounters Type Date Location Provider Dx Diagnosis Office Visit 05/23/2018 [facility] Alton Carvajal M.D. M17.11 Unilateral primary 2:15p at [place] osteoarthritis, right knee Assessments Date Code Description Provider 11/14/2018 M17.11 Unilateral primary osteoarthritis, right knee Alton Carvajal M.D. 09/26/2018 M17.11 Unilateral primary osteoarthritis, right knee Alton Carvajal M.D. 05/23/2018 M17.11 Unilateral primary osteoarthritis, right knee Alton Carvajal M.D. Plan of Treatment Future Appointment(s):02/13/2019 2:15 pm - Alton Carvajal M.D. at [facility]05/01/2019 2:20 pm - William Banda M.D. at [facility] Internal Medicine-Gapukvovu66/22/2020 2:15 pm - Ida Vo DNP, RN, CLINICAL PSYCHOLOGIST-BC at [facility]11/14/2018 - Alton Carvajal M.D.M17.11 Unilateral primary osteoarthritis, right kneeNew Medication:Walker -Follow up:Follow up: 3-4 months and as needed OK to use ice OK to use a cane or walker when the knee is too sore Functional Status Description No Information Available Mental Status Description No Information Available Referrals Description No Information Available
[2018-12-30 14:46] VITALS: BP 143/82
--- NOTE | 2018-12-30 15:02 | UC ---
Respiratory Complaint HPI - HPI Summary HPI Summary: cough and sore throat for 5 days ---no fever is getting some relief with otc multisymptom cold reliever - History of Current Complaint Chief Complaint: UCRespiratory Stated Complaint: COUGH Time Seen by Provider: 12/30/18 14:52 Hx Obtained From: Patient Onset/Duration: Sudden Onset, Lasting Days - 5, Still Present Timing: Constant Pain Intensity: 5 Pain Scale Used: 0-10 Numeric Character: Cough: Nonproductive Aggravating Factors: Nothing Alleviating Factors: Other - otc multisymptom cold reliever Associated Signs And Symptoms: Positive: Negative - Allergies/Home Medications Allergies/Adverse Reactions: Allergies Allergy/AdvReac Type Severity Reaction Status Date / Time MAO inhibitors Allergy unk Uncoded 12/30/18 14:47 PMH/Surg Hx/FS Hx/Imm Hx Endocrine History: Diabetes Psychological History: Anxiety, Bipolar Disorder - Surgical History Surgical History: Yes Surgery Procedure, Year, and Place: arthroscopy right knee 2000. left hip arthritis - Family History Known Family History: Positive: Other - sleep apnea - Social History Occupation: Disabled Lives: Alone Alcohol Use: None Alcohol Amount: 20years sober Substance Use Type: None Smoking Status (MU): Never Smoked Tobacco Type: Cigarettes Have You Smoked in the Last Year: No When Did the Patient Quit Smoking/Using Tobacco: 2 yrs ago Review of Systems All Other Systems Reviewed And Are Negative: Yes Constitutional: Positive: Negative Skin: Positive: Negative Eyes: Positive: Negative ENT: Positive: Sore Throat Respiratory: Positive: Cough Cardiovascular: Positive: Negative Gastrointestinal: Positive: Negative Genitourinary: Positive: Negative Motor: Positive: Negative Neurovascular: Positive: Negative Musculoskeletal: Positive: Negative Neurological: Positive: Negative Psychological: Positive: Negative Is Patient Immunocompromised?: No Physical Exam Triage Information Reviewed: Yes Appearance: Well-Appearing, No Pain Distress, Obese Vital Signs: Initial Vital Signs Temp 98.1 F 12/30/18 14:43 Pulse 82 12/30/18 14:43 Resp 18 12/30/18 14:43 BP 143/82 12/30/18 14:43 Pulse Ox 98 12/30/18 14:43 Vital Signs Reviewed: Yes Eye Exam: Normal Eyes: Positive: Conjunctiva Clear ENT Exam: Normal ENT: Positive: Normal ENT inspection, Hearing grossly normal, TMs normal, Uvula midline. Negative: Nasal congestion, Tonsillar swelling, Tonsillar exudate, Trismus, Muffled voice, Hoarse voice, Dental tenderness, Sinus tenderness Dental Exam: Normal Neck exam: Normal Neck: Positive: Supple, Nontender Respiratory Exam: Normal Respiratory: Positive: Chest non-tender, Lungs clear, Normal breath sounds, No respiratory distress, No accessory muscle use Cardiovascular Exam: Normal Cardiovascular: Positive: RRR, No Murmur, Pulses Normal, Brisk Capillary Refill Musculoskeletal Exam: Normal Musculoskeletal: Positive: Strength Intact, ROM Intact, No Edema Neurological Exam: Normal Neurological: Positive: Alert, Muscle Tone Normal Psychological Exam: Normal Skin Exam: Normal Diagnostics - Laboratory Lab Results: RST - Respiratory Course/Dx - Course Course Of Treatment: otc symptom reliever, increase fluids follow with pcp prn - Differential Dx/Diagnosis Provider Diagnosis: Viral URI with cough, Hypertension Discharge ED - Sign-Out/Discharge Documenting (check all that apply): Patient Departure All imaging exams completed and their final reports reviewed: No Studies - Discharge Plan Condition: Stable Disposition: HOME Prescriptions: Benzonatate CAP* [Tessalon 100 MG CAP*] 100 mg PO TID PRN #40 cap PRN Reason: Cough Patient Education Materials: Viral Syndrome (ED), Acute Cough (ED) Referrals: William Banda MD [Primary Care Provider] - 1 Week - Billing Disposition and Condition Condition: STABLE Disposition: Home
== END 2018-12-30 15:30 | disposition home or self-care (01) ==
LOC: UCEAST 14:36
DX: J06.9 Acute upper respiratory infection, unspecified (principal); R05 Cough; I10 Essential (primary) hypertension; F31.9 Bipolar disorder, unspecified; E11.9 Type 2 diabetes mellitus without complications; Z88.8 Allergy status to other drugs, medicaments and biological substances
CPT/HCPCS: 87651; 99212; G0463

== ENCOUNTER 2019-01-13 12:50 | Emergency (ER) | payer MEDICARE, MEDICAID ==
[2019-01-13 13:46] VITALS: BP 139/83
--- OUTSIDE RECORDS SUMMARY | 2019-01-13 14:04 | XMS REPORT ---
:1965 Author Organization [facility] Care Team Providers Name Role Phone Adam Brooke Primary Care Physician Unavailable Allergies, Adverse Reactions, Alerts Allergy Code CodeSystem Reaction Severity Criticality Status Start Substance Date Moderate Medications Medication Medication Medication Start Stop Route Dose Status Fill Code CodeSystem Date Date Instructions diphenhydramine 4525257 RxNorm 2020- oral 25 mg active for 90 HCl 08-15 capsule day(s) clonazepam 051616 RxNorm oral 1 mg 1 active Take 1 tablet 7-10 tablet at bedtime at for 30 day(s) bedtime fluphenazine 496318 RxNorm 2019- oral 10 mg completed for 30 HCl 02-12 tablet day(s) trazodone 785127 RxNorm 2020- oral 50 mg active for 90 08-15 tablet day(s) clonazepam 045830 RxNorm 2019- oral 1 mg 1 completed Take 1 tablet 05-17 tablet at bedtime at for 30 day(s) bedtime tizanidine 493801 RxNorm 2019- oral 4 mg 1 completed Take 1 tablet 05-07 tablet at bedtime at for 30 day(s) bedtime metformin 195629 RxNorm 2020- oral 1,000 mg active Take 1 tablet 08-15 1 tablet twice a day twice a for 90 day(s) day fluphenazine 117695 RxNorm 2019- oral 10 mg completed for 30 HCl 05-07-30 tablet day(s) metformin 949720 RxNorm 2019- oral 1,000 mg completed for 30 02-12 tablet day(s) magnesium oxide 626328 RxNorm oral 400 mg active for 90 3-08 (241.3 day(s) mg magnesiu m) tablet tizanidine 635068 RxNorm 2019-0 2020- oral 4 mg 1 active Take 1 tablet 08-15 tablet at bedtime at for 90 day(s) bedtime trazodone 181340 RxNorm 2019- oral 50 mg completed for 30 02-12 tablet day(s) diphenhydramine 9342478 RxNorm 2019- oral 25 mg completed for 30 HCl 02-12 capsule day(s) nabumetone 586473 RxNorm 2017-02 oral 750 mg active for 90 2- tablet day(s) divalproex 0086651 RxNorm 2019- oral 500 mg 3 completed Take 3 tablet 05-07 tablet at bedtime extended for 30 day(s) release 24 hr at bedtime clonazepam 659215 RxNorm 2019- oral 1 mg completed for 30 04-18 tablet day(s) urea 694859 RxNorm top 40% active for 15 03-06 cream day(s) diphenhydramine 8284267 RxNorm 2019- oral 25 mg completed for 30 HCl 05-07 capsule day(s) benztropine 703093 RxNorm 2019- oral 0.5 mg 1 completed Take 1 tablet 05-17- tablet every every morning for morning 30 day(s) divalproex 2836876 RxNorm 2020- oral 500 mg 3 active Take 3 tablet 08-15 tablet at bedtime extended for 90 day(s) release 24 hr at bedtime divalproex 3585226 RxNorm 2019- oral 500 mg completed for 30 02-12 tablet day(s) extended release 24 hr tizanidine 709400 RxNorm 2019- oral 4 mg completed for 30 02-12 tablet day(s) benztropine 242810 RxNorm oral 1 mg 1 active Take 1 tablet -29 tablet by mouth every every night night for 90 day(s) trazodone 574807 RxNorm 2019- oral 50 mg completed for 30 05-07 tablet day(s) fluphenazine 085766 RxNorm 2020- oral 10 mg active for 90 HCl 08-15 tablet day(s) metformin 404332 RxNorm 2019- oral 1,000 mg completed Take 1 tablet 05-07 1 tablet twice a day twice a for 30 day(s) day doxycycline 1189270 RxNorm oral 100 mg active for 10 hyclate 2-20 tablet day(s) Problems Problem Name Code CodeSystem Alternate Alternate Start End Status Narrative Code CodeSystem Date Date Schizoaffective 55020207 SNOMED-CT Active disorder, manic 3-22 type Relevant diagnostic tests/laboratory data Narrative No Information Procedures Procedure Code CodeSystem Target Date of Status Service Device Device Device Name Site Procedure Delivery Code Name UID Location Psychotherap [id number] SNOMED-CT () 2018-11-12 complete Mental y, 45 04 d Health- minutes with [address], [id number] [phone] Psychotherap [id number] SNOMED-CT () 2018-05-08 complete Mental y, 45 04 d Health- minutes with [address], [id number] [phone] Psychotherap [id number] SNOMED-CT () 2018-11-26 complete Mental y, 45 04 d Health- minutes with [address], [id number] [id number] Psychotherap [id number] SNOMED-CT () 2018-12-03 complete Mental y, 45 04 d Health- minutes with [address], [id number] [phone] Psychotherap [id number] SNOMED-CT () 2018-12-10 complete Mental y, 45 04 d Health- minutes with [address], [id number] [id number] Psychotherap [id number] SNOMED-CT () 2018-12-24 complete Mental y, 45 04 d Health- minutes with [address], [id number] Psychotherap [id number] SNOMED-CT () 2018-07-10 complete Mental y, 45 04 d Health- minutes with [address], [id number] [id number] Psychotherap [id number] SNOMED-CT () 2018-07-17 complete Mental y, 45 04 d Health- minutes with [address], [id number] [id number] Psychotherap [id number] SNOMED-CT () 2018-05-22 complete Mental y, 45 04 d Health- minutes with [address], [id number] [phone] Psychotherap [id number] SNOMED-CT () 2018-05-29 complete Mental y, 45 04 d Health- minutes with [address], [id number] [id number] Psychotherap [id number] SNOMED-CT () 2018-06-05 complete Mental y, 45 04 d Health- minutes with [address], [id number] [id number] Psychotherap [id number] SNOMED-CT () 2018-10-16 complete Mental y, 45 04 d Health- minutes with [address], [id number] [id number] Psychotherap [id number] SNOMED-CT () 2018-09-11 complete Mental y, 45 04 d Health- minutes with [address], [id number] [phone] Psychotherap [id number] SNOMED-CT () 2018-09-25 complete Mental y, 45 04 d Health- minutes with [address], [id number] [id number] Psychotherap [id number] SNOMED-CT () 2018-10-02 complete Mental y, 45 04 d Health- minutes with [address], [id number] [phone] Psychotherap [id number] SNOMED-CT () 2018-08-07 complete Mental y, 45 04 d Health- minutes with [address], [id number] [phone] Psychotherap [id number] SNOMED-CT () 2018-08-21 complete Mental y, 45 04 d Health- minutes with Maricel patient [address], [id number] [phone] Office or [id number] SNOMED-CT () 2018-07-04 complete Mental other 7 d Health- outpatient Lewis visit for [address], established [id number] patient, [phone] which requires at least 2 of these 3 delgado components: An expanded problem focused history; An expanded problem focused examination; Medical decision making of low Office or [id number] SNOMED-CT () 2018-09-03 complete Mental other 6 d Health- outpatient [facility] visit for [address], established [id number] patient, [id number] which requires at least 2 of these 3 delgado components: A problem focused history; A problem focused examination; Straightforw daniel medical decision making. Counselin Office or [id number] SNOMED-CT () 2018-11-20 complete Mental other 6 d Health- outpatient Maricel visit for [address], established [id number] patient, [id number] which requires at least 2 of these 3 delgado components: A problem focused history; A problem focused examination; Straightforw daniel medical decision making. Mayuriin SNOMED-CT () 2018-05-15 complete Mental d [address], [id number] SNOMED-CT () 2018-07-03 complete Mental d [address], [id number] [phone] SNOMED-CT () 2018-07-31 complete Mental d [address], [id number] [id number] SNOMED-CT () 2018-10-09 complete Mental d [address], [id number] [phone] SNOMED-CT () 2018-11-06 complete Mental d [address], [id number] [phone] Encounters/Encounter Diagnoses Encounter Name Encounter Diagnosis Diagnosis Name Diagnosis Date of Service Code Code CodeSystem Diagnosis Delivery Location Psychotherapy - [id number] Schizoaffective SNOMED-CT 2018-12-24 Behavioral Individual 30 disorder, manic Health min type Clinic [address] [place] [address], [phone] Vital Signs No Information Social History Element Description Description Start End Code CodeSystem AdditionalInfo Date Date SexAssignedAtBirth Male 1966-0 M AdministrativeGender 6-03 Hospital Discharge Instructions Reason For Referral Medical Equipment FDA Assessments
[2019-01-13] MEDS ORDERED: Lidocaine 1% MPF ** 5 ML VIAL INJ ONE (14:50)
--- NOTE | 2019-01-13 14:54 | UC ---
Skin Complaint HPI - HPI Summary HPI Summary: worsening abscess on left upper thigh---about 10 cm diameter erythema and 1 cm fluctulant area in center - History of Current Complaint Chief Complaint: UCSkin Time Seen by Provider: 01/13/19 14:36 Stated Complaint: LUMP ON LEG Hx Obtained From: Patient Onset/Duration: Gradual Onset, Lasting Days, Still Present Timing: Constant Pain Intensity: 5 Pain Scale Used: 0-10 Numeric Location: Discrete - left upper leg Character: Redness, Raised, Painful Aggravating Factor(s): Nothing Alleviating Factor(s): Nothing - Allergy/Home Medications Allergies/Adverse Reactions: Allergies Allergy/AdvReac Type Severity Reaction Status Date / Time MAO inhibitors Allergy unk Uncoded 01/13/19 13:46 Home Medications: Home Medications Tolnaftate 1% CREAM* [Tinactin 1% CREAM*] 1 applic TOPICAL BID 01/13/19 [ History Confirmed 01/13/19] Urea/Emollient Combination 65 [Uramaxin Gt 45% Kit] 45 % EX DAILY WITH MEAL 09/24 [History Confirmed 01/13/19] PMH/Surg Hx/FS Hx/Imm Hx Previously Healthy: No Psychological History: Other Other Psychological History: schizoeffective - Surgical History Surgical History: Yes Surgery Procedure, Year, and Place: arthroscopy right knee 2000 - Family History Known Family History: Positive: Other - sleep apnea - Social History Occupation: Disabled Lives: Alone Alcohol Use: None Alcohol Amount: 20years sober Substance Use Type: None Smoking Status (MU): Never Smoked Tobacco Type: Cigarettes Have You Smoked in the Last Year: No When Did the Patient Quit Smoking/Using Tobacco: 2 yrs ago Review of Systems All Other Systems Reviewed And Are Negative: Yes Constitutional: Positive: Negative Skin: Positive: Other - abscess left upper thigh Eyes: Positive: Negative ENT: Positive: Negative Respiratory: Positive: Negative Cardiovascular: Positive: Negative Gastrointestinal: Positive: Negative Genitourinary: Positive: Negative Motor: Positive: Negative Neurovascular: Positive: Negative Musculoskeletal: Positive: Negative Neurological: Positive: Negative Psychological: Positive: Negative Is Patient Immunocompromised?: No Physical Exam Triage Information Reviewed: Yes Appearance: Well-Appearing, No Pain Distress, Obese Vital Signs: Initial Vital Signs Temp 97.7 F 01/13/19 13:37 Pulse 84 01/13/19 13:37 Resp 18 01/13/19 13:37 BP 139/83 01/13/19 13:37 Pulse Ox 99 01/13/19 13:37 Vital Signs Reviewed: Yes Eye Exam: Normal Eyes: Positive: Conjunctiva Clear ENT Exam: Normal ENT: Positive: Normal ENT inspection, Hearing grossly normal, Pharynx normal, Nasal congestion, Nasal drainage, TMs normal, Sinus tenderness, Uvula midline. Negative: Trismus, Muffled voice, Hoarse voice, Dental tenderness Dental Exam: Normal Neck exam: Normal Neck: Positive: Supple, Nontender Respiratory Exam: Normal Respiratory: Positive: Chest non-tender, No respiratory distress, No accessory muscle use Cardiovascular: Positive: RRR, Pulses Normal, Brisk Capillary Refill Musculoskeletal Exam: Normal Musculoskeletal: Positive: Strength Intact, ROM Intact, No Edema Neurological Exam: Normal Neurological: Positive: Alert, Muscle Tone Normal Psychological Exam: Normal Skin: Positive: Other - 10 cm erythema with 1 cm soft fluctlant area Procedures - Incision and Drainage Left Lower Posterior Proximal Leg Anesthesia: Local, Lidocaine - 3 cc of 1% Instrument(s): Scalpel Packing: Gauze Re-Evaluation - Re-Evaluation First Eval Change: Improved - large amount of odorus drainage wound culture sent to lab Course/Dx - Course Course Of Treatment: heat to area several times a day daily soap and water wash, daily dressing change, Augmentin wound culture-- - Diagnoses Provider Diagnosis: Sinusitis, Encounter for incision and drainage procedure Discharge ED - Sign-Out/Discharge Documenting (check all that apply): Patient Departure All imaging exams completed and their final reports reviewed: No Studies - Discharge Plan Condition: Stable Disposition: HOME Prescriptions: Amoxicillin/Clavulanate TAB* [Augmentin TAB 875*] 875 mg PO BID #20 tab Patient Education Materials: Sinusitis (ED), Abscess (ED), Heat Pack Application (ED) Referrals: William Banda MD [Primary Care Provider] - If Needed - Billing Disposition and Condition Condition: STABLE Disposition: Home
== END 2019-01-13 15:28 | disposition home or self-care (01) ==
LOC: UCEAST 12:50
DX: L02.416 Cutaneous abscess of left lower limb (principal); J32.9 Chronic sinusitis, unspecified; Z88.8 Allergy status to other drugs, medicaments and biological substances
CPT/HCPCS: 10060; 87070; 87205; 87640; 87641; 99212; G0463

== ENCOUNTER 2019-02-19 09:25 | Inpatient (IN) | payer MEDICARE, MEDICAID ==
--- NOTE | 2019-02-13 14:33 | HP ---
HISTORY AND PHYSICAL: DATE OF ADMISSION/SURGERY: 02/19/19 DATE OF OFFICE VISIT: 02/11/19 SURGEON: Tiffanie Cueva MD.* (DICTATED BY YOLANDA KAHN) PROCEDURE: Right total knee arthroplasty. CHIEF COMPLAINT: Right knee pain. HISTORY OF PRESENT ILLNESS: Mr. Hess is a 53-year-old gentleman with severe end- stage osteoarthritis of the right knee. He has failed conservative treatment and elected to proceed with a right total knee arthroplasty. PAST MEDICAL HISTORY: 1. Diabetes. 2. Schizoaffective disorder. 3. Bipolar disorder. 4. History of alcohol abuse. 5. Sleep apnea. PAST SURGICAL HISTORY: 1. Lung biopsy. 2. ACL reconstruction, right knee. CURRENT MEDICATIONS: 1. MiraLAX as needed. 2. Triamcinolone cream as needed. 3. Nabumetone 750 mg twice a day. 4. Magnesium oxide 400 mg daily. 5. Betamethasone twice daily as needed. 6. Depakote 500 mg 3 tabs q.h.s. 7. ProAir 1 puff every 6 hours as needed. 8. Diphenhydramine 2 tabs at bedtime. 9. Metformin 500 mg 2 tabs twice a day. 10. Clonazepam 0.5 mg 2 tabs daily. 11. Tizanidine 4 mg 3 times a day as needed. 12. Trazodone 50 mg q.h.s. as needed. 13. Fluphenazine 10 mg 2 tabs at bedtime. 14. Tylenol as needed. 15. Loratadine 10 mg a day. 16. Glucosamine chondroitin twice a day. 17. Vitamin D3. 18. Urea. 19. Benztropine. 20. CBD cream. ALLERGIES: No known drug allergies. FAMILY HISTORY: Hypertension, diabetes, and cancer. SOCIAL HISTORY: He is a 53-year-old gentleman, lives alone. He does not smoke , use drugs or alcohol. REVIEW OF SYSTEMS: A complete 14-point review of systems was reviewed with the patient. It was positive for diabetes. He denies a history of DVT, PE, hepatitis, HIV, or anesthesia problems. PHYSICAL EXAMINATION GENERAL: He is well developed, well nourished, in no acute distress. VITAL SIGNS: He stands 5 feet 7 inches tall, weighs 285 pounds. His blood pressure is 134/88, his heart rate is 86. HEENT: Normocephalic, atraumatic. NECK: Supple. No palpable lymph nodes. PULMONARY: The lungs are clear to auscultation bilaterally. CARDIO: Regular rate and rhythm. Strong S1, S2. ABDOMEN: Soft, nontender, nondistended. MUSCULOSKELETAL: Right Lower Extremity: The skin is intact. There are no open wounds or abrasions. There is a moderate effusion of the right knee joint. Some tenderness along the medial and lateral joint line. Range of motion is 10 to 120 degrees of flexion. He is able to dorsiflex and plantarflex. He has a 2+ dorsalis pedis pulse and intact sensation. NEUROLOGICAL: He is alert and oriented x3. ASSESSMENT AND PLAN: Mr. Hess is a 53-year-old gentleman with end-stage osteoarthritis of the right knee. He has failed conservative treatment and elected to proceed with a right total knee arthroplasty. The surgery is scheduled for 02/19/[address] Cueva discussed the risks and benefits of the surgery at today's visit and all of his questions were answered. He will follow up with Dr. Cueva 2 weeks after the surgery. YOLANDA KAHN [id number]/[facility] #: [id number] MTDD
[~2019-02-19 09:25] MED LIST changes: +Acetaminophen TAB* 325 MG PO ONE; -Buffered Lidocaine 0.9% SYRIN* 5 ML/SYR SYRINGE INTRADERM ONE; +Buffered Lidocaine 1% SYRIN* 1 ML/SYRINGE INTRADERM ONE; -Dexamethasone IV* 4 MG/ML 1 ML (4 MG) IV SLOW PU ONE; -Famotidine IV* 10 MG/ML 2 ML (20 mg) IV ONE; +Gabapentin CAP(*) 300 MG PO ONE; +Lactated Ringers 1000 ML Bag* 1,000 ML IV SCH; -Levalbuterol 0.63MG/3ML NEB* UNIT OF USE INH ONE; +Tranexamic Acid 1,000 MG in NS 0.9% 50 ML* (outpatient use) IV SCH; +celeCOXIB CAP* 200 MG PO ONE
--- OUTSIDE RECORDS SUMMARY | 2019-02-19 09:30 | XMS REPORT ---
:1965 Author Organization [facility] Care Team Providers Name Role Phone Janett Brooke Primary Care Physician Unavailable Allergies, Adverse Reactions, Alerts Allergy Code CodeSystem Reaction Severity Criticality Status Start Substance Date nkda Moderate Active Medications Medication Medication Medication Start Stop Route Dose Status Fill Code CodeSystem Date Date Instructions divalproex 6650914 RxNorm 2019- oral 500 mg completed for 30 02-12- tablet day(s) extended release 24 hr clonazepam 19740316 RxNorm 2019- oral 1 mg 1 completed Take 1 tablet 05-17- tablet at bedtime at for 30 day(s) bedtime tizanidine 577094 RxNorm 2019- oral 4 mg 1 completed Take 1 tablet 05-07-30 tablet at bedtime at for 30 day(s) bedtime urea 240345 RxNorm 2018- top 40% active for 15 - cream day(s) trazodone 353086 RxNorm 2019- oral 50 mg completed for 30 02-12- tablet day(s) benztropine 711341 RxNorm 2019- oral 0.5 mg 1 completed Take 1 tablet 05-17-29 tablet every every morning for morning 30 day(s) magnesium oxide 294372 RxNorm oral 400 mg active for 90 3-08 (241.3 day(s) mg magnesiu m) tablet diphenhydramine 0725799 RxNorm 2020- oral 25 mg active for 90 HCl 7-10 01-02 capsule day(s) clonazepam 065316 RxNorm oral 1 mg 1 active Take 1 tablet 7-10 tablet at bedtime at for 30 day(s) bedtime fluphenazine 100919 RxNorm 2020- oral 10 mg active for 90 HCl 7-10 -02 tablet day(s) diphenhydramine 0525684 RxNorm 2019- oral 25 mg completed for 30 HCl 02-12 capsule day(s) tizanidine 018057 RxNorm 2020- oral 4 mg 1 active Take 1 tablet 08-15 tablet at bedtime at for 90 day(s) bedtime fluphenazine 443934 RxNorm 2019- oral 10 mg completed for 30 HCl 02-12 tablet day(s) divalproex 5630119 RxNorm 2019- oral 500 mg 3 completed Take 3 tablet 05-07 tablet at bedtime extended for 30 day(s) release 24 hr at bedtime nabumetone 829379 RxNorm 2017-02 oral 750 mg active for 90 2-21 tablet day(s) doxycycline 1658964 RxNorm oral 100 mg active for 10 hyclate 2-20 tablet day(s) clonazepam 770939 RxNorm 2019- oral 1 mg completed for 30 04-18 tablet day(s) benztropine 410854 RxNorm oral 1 mg 1 active Take 1 tablet 5-29 tablet by mouth every every night night for 90 day(s) trazodone 883171 RxNorm 2019- oral 50 mg completed for 30 05-07 tablet day(s) divalproex 9904987 RxNorm 2020- oral 500 mg 3 active Take 3 tablet 08-15 tablet at bedtime extended for 90 day(s) release 24 hr at bedtime metformin 575590 RxNorm 2020- oral 1,000 mg active Take 1 tablet 08-15 1 tablet twice a day twice a for 90 day(s) day diphenhydramine 2492315 RxNorm 2019- oral 25 mg completed for 30 HCl 05-07 capsule day(s) metformin 462033 RxNorm 2019- oral 1,000 mg completed for 30 02-12 tablet day(s) trazodone 361193 RxNorm 2020- oral 50 mg active for 90 08-15 tablet day(s) fluphenazine 457896 RxNorm 2019- oral 10 mg completed for 30 HCl 05-07 tablet day(s) tizanidine 143984 RxNorm 2018- oral 4 mg completed for 30 02-12 tablet day(s) metformin 714757 RxNorm 2018- oral 1,000 mg completed Take 1 tablet 05-07 1 tablet twice a day twice a for 30 day(s) day Problems Problem Name Code CodeSystem Alternate Alternate Start End Status Narrative Code CodeSystem Date Date Schizoaffective 14900044 SNOMED-CT Active disorder, manic 3-22 type Relevant diagnostic tests/laboratory data Narrative No Information Procedures Procedure Code CodeSystem Target Date of Status Service Device Device Device Name Site Procedure Delivery Code Name UID Location Psychotherap [id number] SNOMED-CT () 2018-11-12 complete Mental y, 45 04 d Health- minutes with [address], [id number] [id number] Psychotherap [id number] SNOMED-CT () 2018-05-08 complete Mental y, 45 04 d Health- minutes with [address], [id number] [phone] Psychotherap [id number] SNOMED-CT () 2018-11-26 complete Mental y, 45 04 d Health- minutes with [address], [id number] [id number] Psychotherap [id number] SNOMED-CT () 2018-12-03 complete Mental y, 45 04 d Health- minutes with [address], [id number] [id number] Psychotherap [id number] SNOMED-CT () 2018-12-10 complete Mental y, 45 04 d Health- minutes with [address], [id number] [id number] Psychotherap [id number] SNOMED-CT () 2018-12-24 complete Mental y, 45 04 d Health- minutes with [address], [id number] [phone] Psychotherap [id number] SNOMED-CT () 2018-06-05 complete Mental y, 45 04 d Health- minutes with [address] [place], [id number] [phone] Psychotherap [id number] SNOMED-CT () 2018-08-07 complete Mental y, 45 04 d Health- minutes with [address], [id number] [id number] Psychotherap [id number] SNOMED-CT () 2018-08-21 complete Mental y, 45 04 d Health- minutes with [address], [id number] [id number] Psychotherap [id number] SNOMED-CT () 2018-07-10 complete Mental y, 45 04 d Health- minutes with [address], [id number] [id number] Psychotherap [id number] SNOMED-CT () 2018-07-17 complete Mental y, 45 04 d Health- minutes with [address], [id number] [id number] Psychotherap [id number] SNOMED-CT () 2018-05-22 complete Mental y, 45 04 d Health- minutes with [address], [id number] [id number] Psychotherap [id number] SNOMED-CT () 2018-05-29 complete Mental y, 45 04 d Health- minutes with [address], [id number] [id number] Psychotherap [id number] SNOMED-CT () 2019-01-21 complete Mental y, 45 04 d Health- minutes with [address], [id number] [id number] Psychotherap [id number] SNOMED-CT () 2019-01-28 complete Mental y, 45 04 d Health- minutes with [address], [id number] [id number] Psychotherap [id number] SNOMED-CT () 2018-10-16 complete Mental y, 45 04 d Health- minutes with [address], [id number] [phone] Psychotherap 465252 SNOMED-CT () 2018-09-11 complete Mental y, 45 04 d Health- minutes with [place] patient [address], [id number] [id number] Psychotherap [id number] SNOMED-CT () 2018-09-25 complete Mental y, 45 04 d Health- minutes with [facility] [address], [id number] [phone] Psychotherap [id number] SNOMED-CT () 2018-10-02 complete Mental y, 45 04 d Health- minutes with [place] patient [address], [id number] [phone] Office or [id number] SNOMED-CT () 2018-07-04 complete Mental other 7 d Health- outpatient [place] visit for [address], established [id number] patient, [id number] which requires at least 2 of these 3 delgado components: An expanded problem focused history; An expanded problem focused examination; Medical decision making of [facility] Office or [id number] SNOMED-CT () 2018-09-03 complete Mental other 6 d Health- outpatient [place] visit for [address], established [id number] patient, [id number] which requires at least 2 of these 3 delgado components: A problem focused history; A problem focused examination; [facility] medical decision making. Counsel[place] Office or [id number] SNOMED-CT () 2019-02-08 complete Mental other 6 d Health- outpatient [place] visit for [address], established [id number] patient, [phone] which requires at least 2 of these 3 delgado components: A problem focused history; A problem focused examination; [facility] medical decision making. Counsel[place] Office [place] [id number] SNOMED-CT () 2018-11-20 complete Mental other 6 d Health- outpatient [place] visit for [address], established [id number] patient, [id number] which requires at least 2 of these 3 delgado components: A problem focused history; A problem focused examination; [facility] daniel medical decision making. Counselin SNOMED-CT () 2018-05-15 complete Mental d Health- [place] [address] [place], [place], [id number] SNOMED-CT () 2018-07-03 complete Mental d [facility] [address] [place], [place], [id number] [id number] SNOMED-CT () 2018-07-31 complete Mental d [facility] [address] [place], [place], [id number] [id number] SNOMED-CT () 2018-10-09 [facility] Mental d [facility] [address] [place], [place], [id number] [id number] SNOMED-CT () 2018-11-06 [facility] Mental d [facility] [address] [place], [place], [id number] [phone] Encounters/Encounter Diagnoses Encounter Encounter Diagnosis Diagnosis Name Diagnosis Date of Service Name Code Code CodeSystem Diagnosis Delivery Location [facility] [id number] Schizoaffective SNOMED-CT 2019-02-08 Behavioral Established disorder, manic Health patient 10 type Clinic [address] [place], [place], [id number] Vital Signs No Information Social History Element Description Description Start End Code CodeSystem AdditionalInfo Date Date SexAssignedAtBirth Male 1966-0 M AdministrativeGender 07-09 Hospital Discharge Instructions Reason For Referral Medical Equipment FDA Assessments
--- OUTSIDE RECORDS SUMMARY | 2019-02-19 09:30 | XMS REPORT ---
:1965 Author Organization [facility] Care Team Providers Name Role Phone Janett Brooke Primary Care Physician Unavailable Allergies, Adverse Reactions, Alerts Allergy Code CodeSystem Reaction Severity Criticality Status Start Substance Date nkda Moderate Active Medications Medication Medication Medication Start Stop Route Dose Status Fill Code CodeSystem Date Date Instructions tizanidine 143611 RxNorm 2019- oral 4 mg 1 completed Take 1 tablet 05-07-30 tablet at bedtime at for 30 day(s) bedtime nabumetone 898999 RxNorm 2017-02 oral 750 mg active for 90 2-21 tablet day(s) clonazepam 651263 RxNorm 2019- oral 1 mg 1 completed Take 1 tablet 4 07-10 tablet at bedtime at for 30 day(s) bedtime diphenhydramine 2551031 RxNorm 2019- oral 25 mg completed for 30 HCl 4-30 capsule day(s) fluphenazine 712846 RxNorm 2020- oral 10 mg active for 90 HCl 7-10 -02 tablet day(s) urea 865874 RxNorm 2018- top 40% active for 15 1-29 cream day(s) diphenhydramine 7139505 RxNorm 2020- oral 25 mg active for 90 HCl 7-10 -02 capsule day(s) clonazepam 519154 RxNorm oral 1 mg 1 active Take 1 tablet 7-10 tablet at bedtime at for 30 day(s) bedtime trazodone 369122 RxNorm 2019- oral 50 mg completed for 30 - 06-30 tablet day(s) doxycycline 3887742 RxNorm 20190 oral 100 mg active for 10 hyclate 2-20 tablet day(s) trazodone 027256 RxNorm 2019- oral 50 mg completed for 30 - 04- tablet day(s) clonazepam 281085 RxNorm 2019- oral 1 mg completed for 30 04-18 tablet day(s) divalproex 6565810 RxNorm 2020- oral 500 mg 3 active Take 3 tablet 08-15 tablet at bedtime extended for 90 day(s) release 24 hr at bedtime fluphenazine 454705 RxNorm 2019- oral 10 mg completed for 30 HCl 02-12 tablet day(s) fluphenazine 758866 RxNorm 2019- oral 10 mg completed for 30 HCl 05-07 tablet day(s) benztropine 780864 RxNorm 2019- oral 0.5 mg 1 completed Take 1 tablet 05-17 tablet every every morning for morning 30 day(s) benztropine 681369 RxNorm oral 1 mg 1 active Take 1 tablet 07-04 tablet by mouth every every night night for 90 day(s) divalproex 8913152 RxNorm 2019- oral 500 mg 3 completed Take 3 tablet 05-07 tablet at bedtime extended for 30 day(s) release 24 hr at bedtime metformin 312841 RxNorm 2019- oral 1,000 mg completed Take 1 tablet 05-07 1 tablet twice a day twice a for 30 day(s) day tizanidine 094488 RxNorm 2019- oral 4 mg completed for 30 02-12 tablet day(s) divalproex 6032291 RxNorm 2019- oral 500 mg completed for 30 02-12 tablet day(s) extended release 24 hr trazodone 668828 RxNorm 2020- oral 50 mg active for 90 08-15 tablet day(s) diphenhydramine 4690471 RxNorm 2019- oral 25 mg completed for 30 HCl 02-12 capsule day(s) magnesium oxide 263812 RxNorm oral 400 mg active for 04-13 (241.3 day(s) mg magnesiu m) tablet metformin 860076 RxNorm 2020- oral 1,000 mg active Take 1 tablet 08-15 1 tablet twice a day twice a for 90 day(s) day tizanidine 294433 RxNorm 2019- oral 4 mg 1 active Take 1 tablet 08-15 tablet at bedtime at for 90 day(s) bedtime metformin 939870 RxNorm 2018- oral 1,000 mg completed for 30 02-12- tablet day(s) Problems Problem Name Code CodeSystem Alternate Alternate Start End Status Narrative Code CodeSystem Date Date Schizoaffective [id number] SNOMED-CT Active disorder, manic 3-22 type Relevant diagnostic tests/laboratory data Narrative No Information Procedures Procedure Code CodeSystem Target Date of Status Service Device Device Device Name Site Procedure Delivery Code Name UID Location Psychotherap [id number] SNOMED-CT () 2018-11-12 complete Mental y, 45 04 d Health- minutes with [address], [id number] [id number] Psychotherap [id number] SNOMED-CT () 2018-05-08 complete Mental y, 45 04 d Health- minutes with [address], [id number] [id number] Psychotherap [id number] SNOMED-CT () 2018-11-26 complete Mental y, 45 04 d Health- minutes with [address], [id number] [id number] Psychotherap [id number] SNOMED-CT () 2018-12-03 complete Mental y, 45 04 d Health- minutes with [address], [id number] [phone] Psychotherap [id number] SNOMED-CT () 2018-12-10 complete Mental y, 45 04 d Health- minutes with [address], [id number] [phone] Psychotherap [id number] SNOMED-CT () 2018-12-24 complete Mental y, 45 04 d Health- minutes with [address], [id number] [id number] Psychotherap [id number] SNOMED-CT () 2018-06-05 complete Mental y, 45 04 d Health- minutes with [address] [place], [id number] [phone] Psychotherap [id number] SNOMED-CT () 2018-08-07 complete Mental y, 45 04 d Health- minutes with [address], [id number] [phone] Psychotherap [id number] SNOMED-CT () 2018-08-21 complete Mental y, 45 04 d Health- minutes with [address], [id number] [phone] Psychotherap [id number] SNOMED-CT () 2018-07-10 complete Mental y, 45 04 d Health- minutes with [address], [id number] [id number] Psychotherap [id number] SNOMED-CT () 2018-07-17 complete Mental y, 45 04 d Health- minutes with [address], [id number] [id number] Psychotherap [id number] SNOMED-CT () 2018-05-22 complete Mental y, 45 04 d Health- minutes with [address], [id number] [phone] Psychotherap [id number] SNOMED-CT () 2018-05-29 complete Mental y, 45 04 d Health- minutes with [address], [id number] [id number] Psychotherap [id number] SNOMED-CT () 2019-01-21 complete Mental y, 45 04 d Health- minutes with [address], [id number] [phone] Psychotherap [id number] SNOMED-CT () 2019-01-28 complete Mental y, 45 04 d Health- minutes with [address], [id number] [id number] Psychotherap [id number] SNOMED-CT () 2018-10-16 complete Mental y, 45 04 d Health- minutes with [address], [id number] [id number] Psychotherap [id number] SNOMED-CT () 2018-09-11 complete Mental y, 45 04 d Health- minutes with [place] patient [address], [id number] [id number] Psychotherap [id number] SNOMED-CT () 2018-09-25 complete Mental y, 45 04 d Health- minutes with [place] patient [address], [id number] [id number] Psychotherap [id number] SNOMED-CT () 2018-10-02 complete Mental y, 45 04 d Health- minutes with [place] patient [address], [id number] [phone] Office or [id number] SNOMED-CT () 2018-07-04 complete Mental other 7 d Health- outpatient [place] visit for [address], established [id number] patient, [phone] which requires at least 2 of these 3 delgado components: An expanded problem focused history; An expanded problem focused examination; Medical decision making of [facility] Office or [id number] SNOMED-CT () 2018-09-03 complete Mental other 6 d Health- outpatient [place] visit for [address], established [id number] patient, [phone] which requires at least 2 of these 3 delgado components: A problem focused history; A problem focused examination; [facility]w daniel medical decision making. Counselin Office or [id number] SNOMED-CT () 2018-11-20 complete Mental other 6 d Health- outpatient [place] visit for [address], established [id number] patient, [phone] which requires at least 2 of these 3 delgado components: A problem focused history; A problem focused examination; [facility]ight[facility]w daniel medical decision making. Counselin SNOMED-CT () 2018-05-15 complete Mental d Health- [address], [id number] [phone] SNOMED-CT () 2018-07-03 complete Mental d Health- [place], [id number] [phone] SNOMED-CT () 2018-07-31 complete Mental d Health- [place], [id number] [phone] SNOMED-CT () 2018-10-09 complete Mental d [address], [id number] [phone] SNOMED-CT () 2018-11-06 complete Mental d [address], [id number] [phone] Encounters/Encounter Diagnoses Encounter Encounter Diagnosis Diagnosis Name Diagnosis Date of Service Name Code Code CodeSystem Diagnosis Delivery Location [facility] [id number] Schizoaffective SNOMED-CT 2019-02-08 Behavioral Established disorder, manic Health patient 10 type Clinic , , Minutes , Vital Signs No Information Social History Element Description Description Start End Code CodeSystem AdditionalInfo Date Date SexAssignedAtBirth Male 1966-0 M AdministrativeGender 07-09 Hospital Discharge Instructions Reason For Referral Medical Equipment FDA Assessments
--- OUTSIDE RECORDS SUMMARY | 2019-02-19 09:30 | XMS REPORT | Continuity of Care Document ---
:1965 External Reference #:[id number] Author Name Tiffanie Cueva M.D. (transmitted by agent of provider Kaitlin Christine) Address [address] [place] [address] Care Team Providers Name Role Phone Felix Garcia MD - Internal Care Team Information Mixing Supervisor [phone] Medicine Nam Ulrich MD - Psychiatry Care Team Information Mixing Supervisor [facility] - Care Team Information Mixing Supervisor Locksmith Helper Adelaide Banda III, MD - Internal Care Team Information Mixing Supervisor Medicine Problems Active Problems Provider Date Low back pain Felix Gacria M.D. Onset: 11/06/2012 Morbid obesity Felix Garcia [...] 04/12/2018 Note: 3mm, repeat CT 1 year Aftercare following joint replacement surgery Tiffanie Cueva M.D. Onset: 02/11 Social History Type Date Description Comments Sex Unknown Tobacco Use Start: Unknown End: Former Cigarette Smoker Unknown 1 Pack Daily Cigarette Use Pack Years - 26 Cigarette Use 45 Years Quit - Age 45 Smoking Status Reviewed: 02/11/19 Former Cigarette Smoker 1 Pack Daily ETOH Use 07/15/2015 Denies alcohol use ETOH Use 03/28/1996 Has consumed alcohol in discontinued 1996 the past Tobacco Use Start: Unknown End: Patient is a former Unknown smoker Recreational Drug Use Denies Drug Use Exercise Type/Frequency Exercises rarely Exercise Type/Frequency Walks sporadically Allergies, Adverse Reactions, Alerts Active Allergies Reaction Severity Comments Date Gissel Inhibitors 12/19/2013 Alcohol alcoholism; can use rubbing alcohol. 09/08/2014 Selegiline contraindicated when on Zyprexa 04/02/2015 Inactive Allergies NKDA 11/06/2012 NKDA 12/19/2013 NKDA 03/19/2015 Medications Active Medications SIG Qnty Indications Ordering Date Provider Nitro-bid apply small amount 15g K64.4 Esther 01/23/2019 2% Ointment to anal fissure bid MD Kana prn Benztropine Mesylate One tab po at night Unknown 12/20/2018 1mg Tablets Walker M17.11 Alton Carvajal, 11/14/2018 Candie Miralax take 1 packet daily 30units Adelaide Beckman 08/29/2018 3350NF Packet for constipation Candie Banda Forearm Crutches M17.11 Alton Carvajal, 05/23/2018 Candie Cpap Supplies Pl[employer] provide with G47.33 Silva 12/15/2017 necessary cpap MD Miguel supplies, mask to fit, tubing, head gear, filters Triamcinolone apply every day as 30gm L20.9 Andrew Cancino 03/06/2017 Acetonide needed for [place], 0.1% Cream cheek/chest Candie,FACP Nabumetone take 1 tablet by 180tabs [id number] Andrew Cancino 03/06/2017 750mg Tablets mouth twice a day Candie Mayo,FACP Magnesium Oxide take 1 tablet by 90tabs Andrew Cancino 12/01/2016 400mg mouth every day in [place], Tablets the evening M.D.,FACP Depakote ER 3 by mouth every Unknown 03/16/2015 500mg Tablets night at bedtime ER 24HR Proair HFA 1 puff every 6 3units Z77.22 Silva 01/15/2015 108(90Base) hours as needed MD Miguel mcg/Act Aerosol Metformin HCL 2 by mouth [...] Muscle Spasm Trazodone HCL 1 tablet at bedtime 30tabs Unknown 50mg as needed Tablets Fluphenazine HCL 2 by mouth at Unknown 10mg bedtime Tablets Tylenol Extra Strength takes a total of Unknown 2-3000 prn 500mg Tablets Loratadine Take 1 Tablet By 90tabs Adelaide Beckman 10mg Tablets Mouth Every Day Per Candie Banda patient only in the spring Glucosamine 1 by mouth two Unknown Chondroitin times per day Vitamin D3 1 by mouth one time Unknown per day Urea topical every day B35.3 Unknown 40% Cream CBD Cream Apply to right knee Unknown once or twice daily Medications Administered in [...] CPT Code Status Date Vaccine Lot # [id number] Given 11/07/2018 Influenza Virus Vaccine, Quadrivalent, Split, Preservative Free 37717 Given 11/10/2017 Influenza Virus Vaccine, Quadrivalent, Split, Preservative Free 18622 Given 09/17/2017 Zoster (Shingles) Vaccine (HZV), Recombinant, Subunit, Adjuvanted 80592 Given 06/29/2017 Zoster (Shingles) Vaccine (HZV), Recombinant, Subunit, Adjuvanted 62209 Given 12/01/2016 Influenza Virus Vaccine, Quadrivalent, Split, [id number] Preservative Free 75667 Given 12/16/2014 Flu Vaccine Split Virus Preservative Free For Indiv 3Yr Older 34244 Given 09/08/2014 Tdap - Tetanus/Diptheria/Acellular Pertussis [id number] 11145 Given 11/26/2013 Flu Vaccine Split Virus Preservative Free For Indiv [id number] 3Yr Older Vital Signs Date Vital Result Comment 02/11/2019 2:33pm Height 67 inches 5'7" Weight 285.50 lb Heart Rate 86 /min BP Systolic Sitting 134 mmHg BP Diastolic Sitting 88 mmHg Respiratory Rate 14 /min Pain Level 4 O2 % BldC Oximetry 97 % BMI (Body Mass Index) 44.7 kg/m2 01/23/2019 12:36pm Height 67 inches 5'7" Weight 289.00 lb Heart Rate 78 /min BP Systolic Sitting 130 mmHg BP Diastolic Sitting 82 mmHg Body Temperature 97.7 F Pain Level 5 O2 % BldC Oximetry 97 % BMI (Body Mass Index) 45.3 kg/m2 Results Test Acquired Date Facility Test Result H/L Range Note Lipid Panel - 01/23/2019 [facility] Creatine 47 U/L Normal 10- [address] Kinase(CK) [place] [address] [phone] Comp Metabolic 01/23/2019 [facility] Sodium 133 mmol/L Low 135 -[address] [place] [address] [phone] Potassium 4.8 mmol/L Normal 3.5-5.0 Chloride 99 mmol/L Low 101-111 Co2 Carbon Dioxide 26 mmol/L Normal 22-32 Anion Gap 8 mmol/L Normal 2-11 Glucose 89 mg/dL Normal 70-100 Blood Urea Nitrogen 13 mg/dL Normal 6-24 Creatinine 0.74 mg/dL Normal 0.67-1.17 BUN/Creatinine Ratio 17.6 Normal 8-20 Calcium 9.8 mg/dL Normal 8.6-10.3 Total Protein 6.8 g/dL Normal 6.4-8.9 Albumin 4.1 g/dL Normal 3.2-5.2 Globulin 2.7 g/dL Normal 2-4 Albumin/Globulin Ratio 1.5 Normal 1-3 Total Bilirubin 0.30 mg/dL Normal 0.2-1.0 Alkaline Phosphatase 49 U/L Normal 34-104 Alt 23 U/L Normal 7-52 Ast 15 U/L Normal 13-39 Egfr Non- 111.1 >60 Egfr 134.4 >60 2 Lipid Profile 01/23/2019 [facility] Triglycerides 118 mg/dL 3 (Trig/Chol/HDL) [address] [place] [address] [phone] Cholesterol 157 mg/dL 4 HDL Cholesterol 40.4 mg/dL 5 LDL Cholesterol 93 mg/dL 6 CBC Auto 01/23/2019 [facility] White Blood 8.4 10^3/uL Normal 3.5-10.[address] [place] [address] [phone] Red Blood Count 4.74 10^6/uL Normal 4.18-5.48 Hemoglobin 14.5 g/dL Normal 14.0-18.0 Hematocrit 43 % Normal 42-52 Mean Corpuscular Volume 90 fL Normal 80-94 Mean Corpuscular Hemoglobin 31 pg Normal 27-31 Mean Corpuscular HGB Conc 34 g/dL Normal 31-36 Red Cell Distribution Width 14 % Normal 10-15 Platelet Count 304 10^3/uL Normal 150-450 Mean Platelet Volume 8.3 fL Normal 7.4-10.4 Abs Neutrophils 4.6 10^3/uL Normal 1.5-7.7 Abs Lymphocytes 2.9 10^3/uL Normal 1.0-4.8 Abs Monocytes 0.7 10^3/uL Normal 0-0.8 Abs Eosinophils 0.2 10^3/uL Normal 0-0.6 Abs Basophils 0.0 10^3/uL Normal 0-0.2 Abs Nucleated RBC 0.0 10^3/uL Granulocyte % 54.3 % Lymphocyte % 34.5 % Monocyte % 8.7 % Eosinophil % 2.1 % Basophil % 0.4 % Nucleated Red Blood Cells % 0.1 Laboratory test 01/23/2019 [facility] C Reactive 6.87 mg/L Normal <8.01 [address] [place] [address] [phone] Erythrocyte Sed Rate 7 mm/Hr Normal 0-19 8 Inr/Protime 01/23/2019 [facility] Inr 0.94 Normal 0.82-1.[address] [place] [address] [phone] Wound 01/13/2019 [facility] Wound/Misc SEE RESULT 10, Culture/Sensi [address] Culture-Gram BELOW 11 [place] [address] Stain [phone] Laboratory 01/13/2019 [facility] MRSA/S SEE RESULT 12 test finding [address] [place] [address] PCR [phone] Laboratory 12/30/2018 [facility] Rapid Strep Negative Negative 13 test finding [address] [place] [address] [phone] 1 FASTING Copy Result to: ADELAIDE BANDA ([id number]) 2 Because ethnic data is not always [...] 5 Kidney failure <15 (or dialysis) 3 Desirable: <150 Borderline High: 150-199 High: 200-499 Very High: >500 4 Desirable: <200 Borderline High: 200-239 High: >239 5 Low: <40 Desirable: 40-60 High: >60 6 Desirable: <100 Near Optimal: 100-129 Borderline High: 130-159 High: 160-189 Very High: >189 7 FASTING Copy Result to: ADELAIDE BANDA ([id number]) 8 FASTING Copy Result to: ADELAIDE BANDA ([id number]) 9 Standard intensity warfarin therapeutic range: 2.0-3.0 High intensity warfarin therapeutic range: 2.5-3.5 10 [id number] 11 SEE RESULT BELOW Name: JANETT HESS : [address]: Randee Joy MD Acct: [id number] Unit: [id number] AGE: 53 Location: [facility] Re01/13/19 SEX: M Status: DEP ER SPEC: [id number] ELIF: 01/13/19-[address] [facility] [address]: Nell Gordillo NP REQ: [id number] RECD: 01/14/19 STATUS: RES KHANH DR: Randee Banda III, MD _ SOURCE: LEG,LEFT SPDESC: ORDERED: Culture Stain COMMENTS: [id number] Procedure Result Reported Site Wound/Misc Gram Stain Final 01/14/19- 1227 ML 3+ Neutrophils 2+ Gram Positive Cocci Wound/Misc Culture PENDING * ML - Main Lab . END OF REPORT DEPARTMENT OF PATHOLOGY, [address] [place] [address] Martin Bernal M.D. Director [facility] # [id number] 12 SEE RESULT BELOW Name: JANETT HESS : [address]: Randee Joy MD Acct: [id number] Unit: [id number] AGE: 53 Location: [facility] Re01/13/19 SEX: M Status: DEP ER SPEC: [id number] ELIF: 01/13/19-[address] [facility] [address]: Nell Goridllo NP REQ: [id number] RECD: 01/14/19 STATUS: MISAEL CASSIDY DR: Randee Banda III, MD _ SOURCE: LEG,LEFT SPDESC: ORDERED: MRSA/SA SSTI, Culture Stain COMMENTS: [id number] Procedure Result Reported Site MRSA/S. aureus SSTI PCR Final 01/14/19- 1335 ML Organism 1 MRSA NEGATIVE Organism 2 S.AUREUS NEGATIVE As with all diagnostic procedures, the laboratory results obtained should be used in conjunction with other clinical information available to the physician, including confirmation by another method, as applicable. Wound/Misc Gram Stain Final 01/14/19- 122 ML 3+ Neutrophils 2+ Gram Positive Cocci Wound/Misc Culture Final 01/17/19- 927 ML Organism 1 STAPHYLOCOCCUS LUGDENENSIS Quantity 1+ Beta Lactamase Negative Organism 2 NORMAL BRUNILDA Quantity 1+ CONTINUED ON NEXT PAGE DEPARTMENT OF PATHOLOGY, [address] [place] [address] Martin Bernal M.D. Director [facility] # [id number] Specimen: [id number] Collected: 01/13/19 Received: 01/14/19 (Continued) Procedure Result Reported Site Wound/Misc Culture Final (continued) 01/17/19- 927 1. STAPHYLOCOCCUS LUGDENENSIS M.I.C. RX --------- ------ Penicillin 0.12 S Clindamycin <=0.25 S Erythromycin <=0.25 S Gentamicin <=0.5 S Linezolid 1 S Oxacillin 1 S * Quinupristin/Dalfopristin <=0.25 S Rifampin <=0.5 S Tetracycline <=1 S Doxycycline - Deduced S * Minocycline - Deduced S Tigecycline <=0.12 S Trimethoprim/Sulfamethoxazole <=10 S Vancomycin 1 S Imipenem-Deduced S * Ampicillin/Sulbactam-Deduced S Cefazolin-Deduced S * These antibiotics are not available in the [facility] Formulary Contact the Microbiology Department for any additional antibiotic reporting. * ML - Main Lab . END OF REPORT DEPARTMENT OF PATHOLOGY, [address] [place] [address] Martin Bernal M.D. Director [facility] # [id number] 13 Pvc Monitor: [id number] Suboptimal collection technique may reduce sensitivity of test. Refer to the [facility] Test Catalog for collection information: [email or web address] As with all diagnostic procedures, the laboratory results obtained should be used in conjunction with other clinical information available to the physician, including confirmation by another method, as applicable. Procedures Date Code Description Status 02/07/2019 17745 Treadmill Interp/Report Only Completed 02/07/2019 88277 Stress Test Supervsn W/Out I/R Completed 02/01/2019 85817 Treadmill Interp/Report Only Completed 02/01/2019 61020 Stress Test Supervsn W/Out I/R Completed 01/24/2019 58116 ECHO Transthoracic, Real-Time 2D With Doppler And Completed Color Flow 12/21/2018 88343 EKG Tracing & Interpretation Completed 11/14/2018 67540 Inject/Drain Joint/Bursa Major W/O US Completed 09/26/201811923 Inject/Drain Joint/Bursa Major W/O US Completed 04/09/2018 [id number] Diabetic Retinal Eye Exam Completed 02/24/2017 63004996 Colonoscopy Completed Medical Devices Description No Information Available Encounters Type Date Location Provider Dx Diagnosis Office Visit 01/23/2019 [facility] Internal Esther Roger, Z01.818 Encounter for other 12:40p Medicine - [facility] preprocedural examination L02.214 Cutaneous abscess of groin K64.4 Residual hemorrhoidal skin tags L30.9 Dermatitis, unspecified L98.9 Disorder of the skin and subcutaneous tissue, unspecified R19.7 Diarrhea, unspecified M17.11 Unilateral primary osteoarthritis, right knee Office Visit 12/21/2018 3:00p [facility] Prasanna Evans M25.561 Pain in Candie Pitts right knee F25.9 Schizoaffective disorder, unspecified R07.89 Other chest pain E66.9 Obesity, unspecified F17.210 Nicotine dependence, cigarettes, uncomplicated 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 02/11/2019 M25.461 Effusion, right knee Tiffanie Cueva M.D. 02/11/2019 Z47.1 Aftercare following joint replacement Tiffanie Hammad, M.D. surgery 01/24/2019 R07.89 Other chest pain Prasanna Pitts M.D. 01/24/2019 R07.89 Other chest pain [facility] Schedule 01/23/2019 Z01.818 Encounter for other preprocedural Esther Roger MD examination 01/23/2019 L02.214 Cutaneous abscess of groin Esther Roger MD 01/23/2019 K64.4 Residual hemorrhoidal skin tags Esther Roger MD 01/23/2019 L30.9 Dermatitis, unspecified Esther Roger MD 01/23/2019 L98.9 Disorder of the skin and subcutaneous Esther Roger MD tissue, unspecified 01/23/2019 R19.7 Diarrhea, unspecified Esther Roger MD 01/23/2019 M17.11 Unilateral primary osteoarthritis, right Esther Roger MD knee 12/21/2018 M25.561 Pain in right knee Prasanna Pitts M.D. 12/21/2018 F25.9 Schizoaffective disorder, unspecified Prasanna Pitts M.D. 12/21/2018 R07.89 Chest discomfort Prasanna Pitts M.D. 12/21/2018 E66.9 Obesity Prasanna Pitts M.D. 12/21/2018 F17.210 Nicotine dependence, cigarettes, Prasanna Pitts M.D. uncomplicated 12/21/2018 E74.39 Other disorders of intestinal Prasanna Pitts M.D. carbohydrate absorption 12/21/2018 G47.33 Obstructive sleep apnea (adult) Prasanna Pitts M.D. (pediatric) 12/05/2018 M25.561 Pain in right knee Tiffanie Cueva M.D. 12/05/2018 M25.461 Effusion, right knee Tiffanie Cueva M.D. 12/05/2018 M17.11 Unilateral primary osteoarthritis, right Tiffanie Cueva M.D. knee 11/14/2018 M17.11 Unilateral primary osteoarthritis, right Alton Carvajal M.D. knee 09/26/2018 M17.11 Unilateral primary osteoarthritis, right Alton Carvajal M.D. knee Plan of Treatment Future Appointment(s):03/01/2019 2:15 pm - Tiffanie Cueva M.D. at [facility]02/19/2019 2:30 pm - Lalito Grace PA-C at [facility] at Rvddbh1402/19/2019 2:30 pm - YOLANDA Meza at [facility]02/19/2019 2:30 pm - Tiffanie Cueav M.D. at [facility] at Dkmhmh0002/27/2019 2:15 pm - Ida Vo DNP, RN, WASHHOUSE WORKER-BC at [facility]02/11/2019 - Tiffanie Cueva M.D.M25.561 Pain in right kneeFollow up:Follow up: 2 weeks after npklvktG09.461 Effusion, right kneeZ47.1 Aftercare following joint replacement surgery Functional Status Description No Information Available Mental Status Description No Information Available Referrals Description No Information Available
--- OUTSIDE RECORDS SUMMARY | 2019-02-19 09:30 | XMS REPORT | Continuity of Care Document ---
:1965 External Reference #:[id number] Author Name Esther Roger MD (transmitted by agent of provider Nori Pelaez) Address [address] , [place] [address] Care Team Providers Name Role Phone Felix Garcia MD - Internal Care Team Information Intelligence Analyst [phone] Medicine Nam Ulrich MD - Psychiatry Care Team Information Intelligence Analyst [facility] - Care Team Information Intelligence Analyst Photographic Reproduction Technician Adelaide Banda III, MD - Internal Care Team Information Intelligence Analyst [phone] Medicine Problems Active Problems Provider Date Low [...] Quit - Age 45 Smoking Status Reviewed: 01/23/19 Former Cigarette Smoker 1 Pack Daily ETOH [...] Esther 01/23/2019 2% Ointment to anal fissure MD Kana bid prn Benztropine Mesylate One tab po at Unknown 12/20/2018 1mg night Tablets Walker M17.11 Alton Carvajal, 11/14/2018 Candie Miralax take 1 packet 30units Adelaide Beckman 08/29/2018 3350NF Packet daily as needed Candie Banda for constipation Forearm Crutches M17.11 Alton Carvajal, 05/23/2018 Candie Cpap Supplies Pls provide with G47.33 Silva Rivera, 12/15/2017 necessary cpap supplies, mask to fit, tubing, head gear, filters Triamcinolone apply every day as 30gm L20.9 Andrew Cancino 03/06/2017 Acetonide needed for Candie Mayo,FACP 0.1% Cream cheek/chest Nabumetone take 1 tablet by 180tabs Lawrence7.11 Andrew Cancino 03/06/2017 750mg Tablets mouth twice a day Candie Mayo,FACP as needed Right Knee Brace With M17.11 Alton Carvajal, 01/09/2017 Aaron Schreiber Magnesium Oxide take 1 tablet by 90tabs Andrew Cancino 12/01/2016 400mg mouth every day in Candie Mayo,FACP Tablets the evening Hinge Knee Brace 1 hinge knee brace Monique 07/27/2015 AMY Valentine Depakote ER 3 by mouth every Unknown 03/16/2015 500mg Tablets night at bedtime ER 24HR Proair HFA 1 puff every 6 3units Z77.22 Silva Rivera, 01/15/2015 108(90Base) hours as needed MD mcg/Act Aerosol Metformin HCL 2 by mouth [...] Adelaide Beckman 10mg Tablets Mouth Every Day Candie [...] CPT Code Status Date Vaccine Lot # [id number] Given 11/07/2018 Influenza Virus Vaccine, Quadrivalent, Split, Preservative Free 82088 Given 11/10/2017 Influenza Virus Vaccine, Quadrivalent, Split, Preservative Free 12416 Given 09/17/2017 Zoster (Shingles) Vaccine (HZV), Recombinant, Subunit, Adjuvanted 50636 Given 06/29/2017 Zoster (Shingles) Vaccine (HZV), Recombinant, Subunit, Adjuvanted 88701 Given 12/01/2016 Influenza Virus Vaccine, Quadrivalent, Split, [id number] Preservative Free 38522 Given 12/16/2014 Flu Vaccine Split Virus Preservative Free For Indiv 3Yr Older 16429 Given 09/08/2014 Tdap - Tetanus/Diptheria/Acellular Pertussis [id number] 83200 Given 11/26/2013 Flu Vaccine Split Virus Preservative Free For Indiv [id number] 3Yr Older Vital Signs Date Vital Result Comment 01/23/2019 12:36pm Height 67 inches 5'7" Weight 289.00 lb Heart Rate 78 /min BP Systolic Sitting 130 mmHg BP Diastolic Sitting 82 mmHg Body Temperature 97.7 F Pain Level 5 O2 % BldC Oximetry 97 % BMI (Body Mass Index) 45.3 kg/m2 12/21/2018 2:55pm Height 67 inches 5'7" Weight 298.00 lb no shoes Heart Rate 72 /min BP Systolic Sitting 138 mmHg Lue BP Diastolic Sitting 84 mmHg Lue BP Systolic Standing 128 mmHg Lue BP Diastolic Standing 80 mmHg Lue BMI (Body Mass Index) 46.7 kg/m2 Results Test Acquired Date Facility Test Result H/L Range Note Lipid Panel - 01/23/2019 [facility] Creatine 47 U/L Normal 10- [address] Kinase(CK) [place] [address] [phone] Comp Metabolic 01/23/2019 [facility] Sodium 133 mmol/L Low 135 -[address] [place], [place] [id number] [phone] Potassium 4.8 mmol/L Normal 3.5-5.0 Chloride 99 [...] Egfr 134.4 >60 2 Lipid Profile 01/23/2019 [facility] Triglycerides 118 mg/dL 3 (Trig/Chol/HDL) [address] [place] [address] [phone] Cholesterol 157 mg/dL 4 HDL Cholesterol 40.4 mg/dL 5 LDL Cholesterol 93 mg/dL 6 Laboratory test 01/23/2019 [facility] C Reactive 6.87 mg/L Normal <8.01 7 finding [address] [place] [address] [phone] Erythrocyte Sed Rate <pending> Inr/Protime 01/23/2019 [facility] Inr 0.94 Normal 0.82-1.[address] [place] [address] [phone] Wound 01/13/2019 [facility] Wound/Misc SEE RESULT 9, Culture/Sensi [address] DR[address] Culture-Gram BELOW 10 [place] [address] Stain [phone] Laboratory 01/13/2019 [facility] MRSA/S SEE RESULT [address] [address] PCR [phone] Laboratory 12/30/2018 [facility] Rapid Strep Negative Negative [address] [place] [address] [phone] 1 FASTING Copy Result to: ADELAIDE BANDA ([id number]) 2 Because ethnic data is not always [...] 7 FASTING Copy Result to: ADELAIDE BANDA ([id number]) 8 Standard intensity warfarin therapeutic range: 2.0-3.0 High intensity warfarin therapeutic range: 2.5-3.5 9 [id number] 10 SEE RESULT BELOW Name: JANETT HESS : [address]: Randee Joy MD Acct: [id number] Unit: [id number] AGE: 53 Location: [facility] Re01/13/19 SEX: M Status: DEP ER SPEC: [id number] ELIF: 01/13/19-[address]: Nell Gordillo NP REQ: [id number] RECD: 01/14/19 STATUS: RES OTHR DR: Randee Banda III, MD _ SOURCE: LEG,LEFT SPDESC: ORDERED: Culture Stain COMMENTS: [id number] Procedure Result Reported Site Wound/Misc Gram Stain Final 01/14/19- 1227 ML 3+ Neutrophils 2+ Gram Positive Cocci Wound/Misc Culture PENDING * ML - Main Lab . END OF REPORT DEPARTMENT OF PATHOLOGY, [address] [place] [address] Martin Bernal M.D. Director [facility] # [id number] 11 SEE RESULT BELOW Name: JANETT HESS : [address]: Randee Joy MD Acct: [id number] Unit: [id number] AGE: 53 Location: [facility] Re01/13/19 SEX: M Status: DEP ER SPEC: [id number] ELIF: 01/13/[address]: Nell Gordillo NP REQ: [id number] RECD: 01/14/19 STATUS: MISAEL CASSIDY DR: Randee Banda III, MD _ SOURCE: LEG,LEFT SPDESC: ORDERED: MRSA/SA SSTI, Culture Stain COMMENTS: [id number] Procedure Result Reported Site MRSA/S. aureus SSTI PCR Final 01/14/19- 1335 ML Organism 1 MRSA NEGATIVE Organism 2 S.AUREUS NEGATIVE As with all diagnostic procedures, the laboratory results obtained should be used in conjunction with other clinical information available to the physician, including confirmation by another method, as applicable. Wound/Misc Gram Stain Final 01/14/19- 1227 ML 3+ Neutrophils 2+ Gram Positive Cocci Wound/Misc Culture Final 01/17/19- 927 ML Organism 1 STAPHYLOCOCCUS LUGDENENSIS Quantity 1+ Beta Lactamase Negative Organism 2 NORMAL BRUNILDA Quantity 1+ CONTINUED ON NEXT PAGE DEPARTMENT OF PATHOLOGY, [address] [place] [address] Martin Bernal M.D. Director [facility] # [id number] Specimen: [id number] Collected: 01/13/19 Received: 01/14/19 (Continued) Procedure Result Reported Site Wound/Misc Culture Final (continued) 01/17/19927 1. STAPHYLOCOCCUS LUGDENENSIS M.I.C. RX --------- ------ [...] These antibiotics are not available in the [facility] Formulary Contact the Microbiology Department for any additional antibiotic reporting. * - [facility] . END OF REPORT DEPARTMENT OF PATHOLOGY, [address] [place] [address] Martin Bernal M.D. Director [facility] # [id number] 12 Remote Recruiter: [id number] Suboptimal collection technique may reduce sensitivity of test. Refer to the [facility] Test Catalog for collection information: [email or web address] As with all diagnostic procedures, the laboratory results obtained should be used in conjunction with other clinical information available to the physician, including confirmation by another method, as applicable. Procedures Date Code Description Status 12/21/2018 22365 EKG Tracing & Interpretation Completed 11/14/201817326 Inject/Drain Joint/Bursa Major W/O US Completed 09/26/2018 99871 Inject/Drain Joint/Bursa Major W/O US Completed 04/09/2018 924523459 Diabetic Retinal Eye Exam Completed 02/24/2017 86193178 Colonoscopy Completed Medical Devices Description No Information Available Encounters Type Date Location Provider Dx Diagnosis Office Visit 12/21/2018 [facility] Prasanna Evans M25.561 Pain in right 3:00p Candie Pitts knee F25.9 Schizoaffective disorder, unspecified R07.89 Other chest pain E66.9 Obesity, unspecified F17.210 Nicotine dependence, cigarettes, uncomplicated E74.39 Other disorders of intestinal carbohydrate absorption G47.33 Obstructive sleep apnea (adult) (pediatric) Office Visit 12/05/2018 3:00p [facility] Tiffanie Cueva M25.561 Pain in right at [facility].D knee M25.461 Effusion, right knee M17.11 Unilateral primary osteoarthritis, right knee Office Visit 11/14/2018 [facility] Carvajal M17.11 Unilateral primary 2:15p Orthopedics at .D. osteoarthritis, right Carmichaels knee Assessments Date Code Description Provider 01/23/2019 Z01.818 Encounter for other preprocedural Esther Roger MD examination 01/23/2019 L02.214 Cutaneous abscess of groin Esther Roger MD 01/23/2019 K64.4 Residual hemorrhoidal skin tags Esther Roger MD 01/23/2019 L30.9 Dermatitis, unspecified Esther Roger MD 01/23/2019 L98.9 Disorder of the skin and subcutaneous Esther Roger MD tissue, unspecified 01/23/2019 R19.7 Diarrhea, unspecified Esther Roger MD 12/21/2018 M25.561 Pain in right knee Prasanna [...] Carvajal M.D. knee Plan of Treatment Future Appointment(s):02/01/2019 11:20 am - Prasanna Pitts M.D. at [facility]01/24/2019 2:30 pm - Post ECHO Schedule at [facility]2019 2:00 pm - Tiffanie Cueva M.D. at [facility] at Eklnbc0202/19/2019 2: 30 pm - Tiffanie Cueva M.D. at [facility] at Bnznrf8802/13/2019 2:15 pm - Alton Carvajal M.D. at [facility] at Thqwjx5402/27/2019 2:15 pm - Ida Vo DNP, RN, LOOM TECHNICIAN-BC at [facility]01/23/2019 - Esther Roger MDZ01.818 Encounter for other preprocedural mmemgfnescsU82.214 Cutaneous abscess of groinComments:Your abscess is healing wellContinue to monitor the area worse increased swelling/ reddness. Please call the office or go to if you are concerned that the infection has slctdmopO35.4 Residual hemorrhoidal skin tagsNew Medication:Nitro-bid 2 % - apply small amount to anal fissure bid prnComments:Do not use for more week at this timeL30.9 Dermatitis, unspecifiedComments:Continue to use a protective ointment on the painful areas of the wdnqswkU47.9 Disorder of the skin and subcutaneous tissue, kcqglwfzzepZ61.7 Diarrhea, unspecifiedComments:Hold miralax use for 1-2 days due to diarrheaCan restart when your symptoms have improved to protectagainst constipation. Functional Status Description No Information Available Mental Status Description No Information Available Referrals Description No Information Available
--- OUTSIDE RECORDS SUMMARY | 2019-02-19 09:30 | XMS REPORT ---
:1965 Author Organization [facility] Care Team Providers Name Role Phone Janett Brooke Primary Care Physician Unavailable Allergies, Adverse Reactions, Alerts Allergy Code CodeSystem Reaction Severity Criticality Status Start Substance Date nkda Moderate Active Medications Medication Medication Medication Start Stop Route Dose Status Fill Code CodeSystem Date Date Instructions divalproex 4501264 RxNorm 2019- oral 500 mg completed for 30 02-12 tablet day(s) extended release 24 hr benztropine 705590 RxNorm oral 1 mg 1 active Take 1 tablet 5-29 tablet by mouth every every night night for 90 day(s) diphenhydramine 1145621 RxNorm 2018- oral 25 mg completed for 30 HCl 02-12 capsule day(s) clonazepam 778785 RxNorm oral 1 mg 1 active Take 1 tablet 7-10 tablet at bedtime at for 30 day(s) bedtime trazodone 966291 RxNorm 2020- oral 50 mg active for 90 08-15- tablet day(s) benztropine 532171 RxNorm 2019- oral 0.5 mg 1 completed Take 1 tablet 05-17-29 tablet every every morning for morning 30 day(s) metformin 690207 RxNorm 2020- oral 1,000 mg active Take 1 tablet 08-15 1 tablet twice a day twice a for 90 day(s) day clonazepam 879992 RxNorm 2019- oral 1 mg completed for 30 04-18 tablet day(s) fluphenazine 968396 RxNorm 2019- oral 10 mg completed for 30 HCl 02-12- tablet day(s) metformin 237195 RxNorm 2019- oral 1,000 mg completed Take 1 tablet 05-07 1 tablet twice a day twice a for 30 day(s) day magnesium oxide 612477 RxNorm oral 400 mg active for 90 3-08 (241.3 day(s) mg magnesiu m) tablet fluphenazine 212823 RxNorm 2020- oral 10 mg active for 90 HCl 08-15- tablet day(s) tizanidine 177838 RxNorm 2020- oral 4 mg 1 active Take 1 tablet 08-15 tablet at bedtime at for 90 day(s) bedtime diphenhydramine 6871434 RxNorm 2019- oral 25 mg completed for 30 HCl 05-07 capsule day(s) diphenhydramine 6208386 RxNorm 2020- oral 25 mg active for 90 HCl 08-15 capsule day(s) trazodone 165135 RxNorm 2019- oral 50 mg completed for 30 05-07-30 tablet day(s) doxycycline 0362491 RxNorm oral 100 mg active for 10 hyclate 2-20 tablet day(s) divalproex 8642930 RxNorm 2019- oral 500 mg 3 completed Take 3 tablet 05-07 tablet at bedtime extended for 30 day(s) release 24 hr at bedtime metformin 173776 RxNorm 2019- oral 1,000 mg completed for 30 02-12 tablet day(s) urea 014391 RxNorm 2018- top 40% active for 15 1-29 cream day(s) fluphenazine 854456 RxNorm 2019- oral 10 mg completed for 30 HCl 05-07- tablet day(s) trazodone 314729 RxNorm 2019- oral 50 mg completed for 30 02-12- tablet day(s) nabumetone 083663 RxNorm 2017-02 oral 750 mg active for 90 2-21 tablet day(s) tizanidine 496788 RxNorm 2019- oral 4 mg completed for 30 02-12- tablet day(s) divalproex 6561220 RxNorm 2020- oral 500 mg 3 active Take 3 tablet 08-15 tablet at bedtime extended for 90 day(s) release 24 hr at bedtime tizanidine 257069 RxNorm 2018- oral 4 mg 1 completed Take 1 tablet 05-07 tablet at bedtime at for 30 day(s) bedtime clonazepam 469943 RxNorm 2018- oral 1 mg 1 completed Take 1 tablet 05-17 tablet at bedtime at for 30 day(s) bedtime Problems Problem Name Code CodeSystem Alternate Alternate Start End Status Narrative Code CodeSystem Date Date Schizoaffective 04767391 SNOMED-CT Active disorder, manic 3-22 type Relevant diagnostic tests/laboratory data Narrative No Information Procedures Procedure Code CodeSystem Target Date of Status Service Device Device Device Name Site Procedure Delivery Code Name UID Location Psychotherap 435722 SNOMED-CT () 2018-11-12 complete Mental y, 45 04 d Health- minutes with [address], [id number] Psychotherap 597888 SNOMED-CT () 2018-05-08 complete Mental y, 45 04 d Health- minutes with [address], [id number] Psychotherap 794846 SNOMED-CT () 2018-11-26 complete Mental y, 45 04 d Health- minutes with [address], [id number] Psychotherap 083809 SNOMED-CT () 2018-12-03 complete Mental y, 45 04 d Health- minutes with [address], [id number] Psychotherap 291185 SNOMED-CT () 2018-12-10 complete Mental y, 45 04 d Health- minutes with [address], [id number] Psychotherap 785005 SNOMED-CT () 2018-12-24 complete Mental y, 45 04 d Health- minutes with [address], [id number] Psychotherap 266647 SNOMED-CT () 2018-08-21 complete Mental y, 45 04 d Health- minutes with [address] [place], [id number] Psychotherap 747829 SNOMED-CT () 2018-07-10 complete Mental y, 45 04 d Health- minutes with [address], [id number] Psychotherap 027954 SNOMED-CT () 2018-07-17 complete Mental y, 45 04 d Health- minutes with [address], [id number] Psychotherap 077148 SNOMED-CT () 2018-05-22 complete Mental y, 45 04 d Health- minutes with [address], [id number] Psychotherap 767320 SNOMED-CT () 2018-05-29 complete Mental y, 45 04 d Health- minutes with [address], [id number] Psychotherap 984946 SNOMED-CT () 2018-06-05 complete Mental y, 45 04 d Health- minutes with [address], [id number] Psychotherap 086346 SNOMED-CT () 2019-01-21 complete Mental y, 45 04 d Health- minutes with [address], [id number] Psychotherap 677791 SNOMED-CT () 2018-10-16 complete Mental y, 45 04 d Health- minutes with [address], [id number] Psychotherap 823594 SNOMED-CT () 2018-09-11 complete Mental y, 45 04 d Health- minutes with [address], [id number] Psychotherap 035196 SNOMED-CT () 2018-09-25 complete Mental y, 45 04 d Health- minutes with [address], [id number] Psychotherap 350959 SNOMED-CT () 2018-10-02 complete Mental y, 45 04 d Health- minutes with [facility] patient [address], [id number] Psychotherap 291444 SNOMED-CT () 2018-08-07 complete Mental y, 45 04 d Health- minutes with [facility] patient [address], [id number] Office or [id number] SNOMED-CT () 2018-07-04 complete Mental other 7 d Health- outpatient [facility] visit for [address], [facility], established [id number] patient, [id number] which requires at least 2 of these 3 delgado components: An expanded problem focused history; An expanded problem focused examination; Medical decision making of low Office or 443415 SNOMED-CT () 2018-09-03 complete Mental other 6 d Health- outpatient [facility] visit for [address], [facility], established [id number] patient, [id number] which requires at least 2 of these 3 delgado components: A problem focused history; A problem focused examination; Straightforw daniel medical decision making. Counselin Office or 748322 SNOMED-CT () 2018-11-20 complete Mental other 6 d Health- outpatient [facility] visit for [address], established [id number] patient, [id number] which requires at least 2 of these 3 delgado components: A problem focused history; A problem focused examination; Straightforw daniel medical decision making. Counselin SNOMED-CT () 2018-05-15 complete Mental d Health- [address], [id number] SNOMED-CT () 2018-07-03 complete Mental d Health- [address], [id number] SNOMED-CT () 2018-07-31 complete Mental d Health- [address], [id number] SNOMED-CT () 2018-10-09 complete Mental d Health- [address], [id number] SNOMED-CT () 2018-11-06 [facility] Mental [facility] [address] [place], [place], [id number] Encounters/Encounter Diagnoses Encounter Name Encounter Diagnosis Diagnosis Name Diagnosis Date of Service Code Code CodeSystem Diagnosis Delivery Location Psychotherapy - 25966 [id number] Schizoaffective SNOMED-CT 2019-01-21 Behavioral Individual 30 disorder, manic Health min type [facility] [address] [place], [place], [id number] Vital Signs No Information Social History Element Description Description Start End Code CodeSystem AdditionalInfo Date Date SexAssignedAtBirth Male 1966-0 M AdministrativeGender 6-03 Hospital Discharge Instructions Reason For Referral Medical Equipment FDA Assessments
[2019-02-19] MEDS ORDERED: Acetaminophen TAB* 325 MG ONE (09:41)
[2019-02-19] MEDS ORDERED: Gabapentin CAP(*) 300 MG ONE (09:41)
[2019-02-19] MEDS ORDERED: ceFOXitin 2 GM IVPREMIX* 0 GM/0 ML BAG ONE (09:42)
[2019-02-19] MEDS ORDERED: celeCOXIB CAP* 200 MG ONE (09:42)
[2019-02-19] MEDS ORDERED: ceFAZolin 2 GM PREMIX in ORs 2 GM/50 ML BAG ONE (09:52)
[2019-02-19] MEDS ORDERED: fentaNYL* 50 MCG/ML 2 ML VIAL (100 MCG VIAL) ONE ×2 (10:49→15:16)
[2019-02-19] MEDS ORDERED: Midazolam* 1 MG/ML 2 ML VIAL (2 MG) ONE ×2 (10:49→13:25)
[2019-02-19] MEDS ORDERED: ROPIVACAINE 5 MG/ML 30 ML BTL (0.5%) ONE (11:02)
[2019-02-19] MEDS ORDERED: ceFAZolin 1 GM ADVAN(*) 1 GM ADDV.VIAL IVPB ONE ×2 (11:14→11:21)
[2019-02-19] MEDS ORDERED: Bupivacaine 0.5% SDV PF* 30ML VIAL ONE (11:19)
[2019-02-19] MEDS ORDERED: Lidocaine 1% INJ* 10 MG/ML 30 ML SDV ONE (11:22)
[2019-02-19] MEDS ORDERED: Dexamethasone IV* 4 MG/ML 1 ML (4 MG) ONE (13:35)
[2019-02-19] MEDS ORDERED: Ondansetron INJ* 2 MG/ML VIAL ONE (13:35)
[2019-02-19] MEDS ORDERED: Propofol* 500 MG/50 ML BTL ONE ×2 (13:37→14:29)
[2019-02-19] MEDS ORDERED: Ondansetron INJ* 2 MG/ML VIAL IV PRN ×2 (14:52→15:26)
[2019-02-19] MEDS ORDERED: Morphine INJ* 2 MG/ML 1 ML SYRINGE (TWO MG - NEW SYRINGE VERSION) IV PRN (14:52)
[2019-02-19] MEDS ORDERED: Ondansetron ODT TAB* 4 MG PO PRN (14:52)
[2019-02-19] MEDS ORDERED: diPHENhydraMINE IV* 50 MG/ML 1 ml VIAL (BENADRYL) IV PRN (14:52)
[2019-02-19] MEDS ORDERED: diPHENhydraMINE PO* 25 MG PO PRN (14:52)
[2019-02-19] MEDS ORDERED: Magnesium Hydroxide LIQ* 30 ML UDC PO PRN (14:52)
[2019-02-19] MEDS ORDERED: Cyclobenzaprine TAB* 10 MG PO PRN (14:52)
[2019-02-19] MEDS ORDERED: oxyCODONE/Acetamin 5/325 MG* TAB PO PRN (14:52)
[2019-02-19] MEDS ORDERED: Triamcinolone PASTE 0.1% (NF) 5 GM TUBE TOPICAL PRN (14:55)
[2019-02-19] MEDS ORDERED: ALBUTEROL INH PRN (14:55)
[2019-02-19] MEDS ORDERED: [UNRECOGNIZED DRUG - OTHER] TOPICAL PRN (14:55)
[2019-02-19] MEDS ORDERED: Polyethylene Glycol 3350* 17 GM PACKET PO PRN (14:55)
[2019-02-19] MEDS ORDERED: Dextrose 50% VIAL 50 ml IV PUSH PRN (15:00)
[2019-02-19] MEDS ORDERED: Naloxone* 0.4 MG/ML 1 ML VIAL IV PRN (15:26)
[2019-02-19] MEDS ORDERED: fentaNYL* 50 MCG/ML 2 ML VIAL (100 MCG VIAL) IV PRN (15:26)
[2019-02-19] MEDS ORDERED: Levalbuterol 0.63MG/3ML NEB* UNIT OF USE INH PRN (15:26)
[2019-02-19] MEDS ORDERED: Propofol* 10 MG/ML 20 ML BTL ONE (15:35)
[2019-02-19] MEDS: Lactated Ringers 1000 ML Bag* 1,000 ML IV SCH (18:00)
[2019-02-19] MEDS: oxyCODONE/Acetamin 5/325 MG* TAB PO PRN ×2 (18:01→22:35)
--- NOTE | 2019-02-19 19:16 | CONS ---
CC: Dr. Cueva; Dr. Banda * CONSULTATION REPORT: DATE OF CONSULT: 02/19/19 PRIMARY CARE PROVIDER: Dr. Banda. PHYSICIAN REQUESTING THE CONSULT: Dr. Cueva from Orthopedic Surgery in regards of medical co-management of the patient with history of diabetes. CHIEF COMPLAINT: Right leg pain. HISTORY OF PRESENT ILLNESS: Adam Hess is a 53-year-old male with history of schizophrenia and bipolar disease, who is being seen by the medical service after right knee replacement surgery performed by Dr. Cueva today. The patient has history of diabetes and schizophrenia. Currently, he feels that his right leg is numb after the surgery. He uses CPAP for obstructive sleep apnea and he brought his machine with him. PAST MEDICAL HISTORY: 1. History of alcohol abuse, in remission since 1996. 2. The patient has history of diabetes type 2, on metformin. 3. Obesity. 4. Sleep apnea, on CPAP. 5. History of respiratory illness in 1999 that required draining of his pleural fluid effusion and since then chronic intermittent left-sided chest pain. 6. History of leg antonio. 7. Morbid obesity. 8. Lower back pain. 9. Gastroesophageal reflux disease 10. Bipolar PAST SURGICAL HISTORY: 1. History of knee arthroscopy in the past. 2. History of pleural fluid removed in 1999. MEDICATIONS: Medications at home include: 1. Trazodone 50 mg at bedtime p.r.n. 2. Metformin 1000 mg b.i.d. 3. Prolixin 20 mg at bedtime. 4. Benadryl 25 mg, the patient takes 2 tablets which is 50 mg at bedtime p.r.n. 5. Clonazepam 1 mg at bedtime. 6. Urea topical as needed. 7. Triamcinolone cream as needed. 8. Tizanidine 4 mg 3 times a day p.r.n. 9. Albuterol inhaler on a p.r.n. basis. 10. MiraLAX 17 g daily p.r.n. 11. Relafen 750 mg b.i.d. p.r.n. 12. Mag-Ox 400 mg at bedtime. 13. Loratadine 10 mg daily. 14. Glucosamine 1 capsule b.i.d. 15. Depakote ER 1500 mg at bedtime. 16. Vitamin D 1000 units daily. 17. CBD extract 1 application b.i.d. p.r.n. 18. Cogentin 1 mg at bedtime. 19. Acetaminophen on a p.r.n. basis. ALLERGIES: Include: 1. MAO INHIBITORS. 2. SELEGILINE contraindicated when used with Zyprexa. FAMILY HISTORY: Positive for father with pancreatitis and diabetes. Mother with history of hypertension. SOCIAL HISTORY: The patient lives alone. He quit drinking alcohol in 1996. He quit smoking in 2011. He has a history of approximately 20-pack years. His surrogate is his father, who lives in [place], also Adam Hess. The patient is a full code. REVIEW OF SYSTEMS: Please see history of present illness. In addition to the above mentioned, the patient stated he has been in his usual health. He denies any chest pain or shortness of breath. He has not had any fevers. Occasionally, his legs would get swollen which is chronic. All the remaining 12 systems were reviewed with the patient and were otherwise negative. PHYSICAL EXAMINATION: Blood pressure of 138/93, heart rate of 111 and regular, respiratory rate 16, oxygen saturation 98% on room air, temperature 95.5. General: The patient is a very pleasant 53-year-old male who is in no acute distress. The patient is alert and oriented x3. HEENT: Head: Atraumatic, normocephalic. Eyes: Pupils are equal, reactive to light and accommodation. Oropharynx clear. Mucosa moist. Neck: Supple. No JVD. No bruit bilaterally. Cardiovascular: Regular rate and rhythm. No murmur. Respiratory : Clear to auscultation bilaterally. Abdomen: Obese, soft, and nontender. Bowel sounds present in all 4 quadrants. Extremities: There is trace bilateral ankle edema. Pulses are +2 bilaterally. No clubbing or cyanosis. On evaluation of the right knee, the patient's right knee is in Cryo unit and postoperative dressings that were not removed for evaluation. Neuro Evaluation: Speech clear. Cranial nerves II through XII grossly intact. Motor strength is 5/5 bilaterally. DIAGNOSTIC STUDIES/LAB DATA: Laboratory data showed glucose above 105, otherwise none obtained. ASSESSMENT AND PLAN: 1. In regards of postoperative management, status post right knee replacement. The patient already was placed on apixaban by Dr. Cueva's service. 2. For obstructive sleep apnea, his CPAP is going to be continued. 3. For his bipolar disease, the patient's Depakote is going to be continued. 4. For his history of diabetes, metformin is going to be held and the patient is going to placed on insulin sliding scale. 5. For DVT prophylaxis, as mentioned above, Eliquis is going to be continued. Thank you very much for allowing our service to see your patient in consult. We will follow tomorrow. TIME SPENT: Approximately 55 minutes was spent on consultation of this patient , more than half that time was spent encc-[id number] with the patient during the interview and physical exam. [id number]/[facility] #: [id number] MIHIR
--- NOTE | 2019-02-19 19:25 | OP ---
Operative Report - Blank - Operative Report Date of Operation: 02/19/19 Note: JANETT LOPEZ 1965 Date of Surgery: 02/19/19 Tiffanie Cueva MD Orthodontic Technician Assistant: Jozef GUERRERO did help throughout the procedure with preparation of the knee, wound retraction, manipulation of the knee, and wound closure. Anesthesiologist: Dr. Pereyra Anesthesia Type: Spinal Preoperative Diagnosis: Right severe degenerative osteoarthritis of the knee Postoperative Diagnosis: As above Procedure Performed: Right Total Knee Arthroplasty Tourniquet time: 86 minutes Complications: None Specimen: Bone and cartilage from the right knee joint sent to pathology. Hardware Used: Cemented Lanza [employer] Nephew total knee hardware was used - For the femur a size 6 right narrow oxinium legion posterior stabilized femoral component, for the tibia a size 5 right zenobia II tibial baseplate, for the insert a size 9mm 5-6 posterior stabilized articular polyethylene insert, and for the patella a size 35 3-peg all poly patella. The Qt Software robotic navigation system was used. Brief History/Indication: JANETT LOPEZ was known in clinic and had a history of severe right knee pain and swelling. He failed conservative treatment with anti-inflammatories, pain pills, intra-articular injections and physical therapy. He elected to undergo right total knee arthroplasty due to continued pain and decreased quality of life. Radiographs showed severe end stage osteoarthritis of the knee with bone on bone contact. Informed consent was obtained from the patient. He understood the risks of surgery included but were not limited to: bleeding, infection, damage to nearby structures, intraoperative fracture, nerve palsy, failure of the hardware, early loosening, knee stiffness or loss of motion, anesthesia complications, stroke, heart attack , blood clot and . He chose the Navio robotic navigation system and understood the pin site risks of infection and fracture. He wished to proceed. Intra-Operative Findings: Intraoperatively the patient was noted to have severe loss of cartilage in all 3 compartments of the knee. Description of the Procedure: JANETT LOPEZ was identified in the preanesthesia unit. His right knee was marked as the correct operative side. Informed consent was signed and placed in the chart. The patient was taken to the operating room and placed under anesthesia without complication. A jones catheter was placed. A tourniquet was placed on the right thigh. The right lower extremity was prepped and draped in the usual sterile fashion. Preoperative time-out was made to correctly identify the patient, side and site. Appropriate intraoperative antibiotics were given within one hour of incision. Tourniquet was inflated. A midline incision was made and carried sharply down to the extensor mechanism. A new 10 blade was used to make a standard medial parapatellar arthrotomy. The patella was subluxed laterally. Electrocautery was used to dissect soft tissue off the superomedial tibia to the midsagittal plane. The knee was flexed up. The anterior horn of the lateral meniscus and the ACL/PCL were sharply incised. The two checkpoint screws were placed. The two femoral and two tibial pins were placed with the arrays. The anatomy was mapped using the Qt Software robotic navigation system and the hardware sizes/cutting angles were chosen. The robotic keyon was used to make the distal femoral cut. The size 6 multi-cutting jig was pinned on the distal femur. The oscillating saw was used to make the appropriate 4 chamfer cuts. Next the PCL was completely released. The extramedullary tibial cutting guide was pinned on the proximal tibia and the robotic Navio angle guide was used to choose the cutting angle. The oscillating saw was used to make the proximal tibial cut perpendicular to the mechanical axis of the tibia. The bone was carefully removed. The knee was brought out into full extension. The spacer block was placed and had excellent fit with the knee in full extension. The medial and lateral ligaments were well balanced. The flexion and extension gaps were well balanced. The knee was flexed up. Lamina varnishing unit tool setter was placed both medially and laterally. Any remaining meniscus was removed with electrocautery. Curved osteotome was used to remove any posterior osteophytes. The tibial tray and drop gaurang were placed and confirmed a satisfactory tibial cut. The size 6 right narrow femoral trial was impacted onto the distal femur. This trial had excellent fit and stability. The box for the posterior stabilized implant was prepared using a box cut osteotome and a reamer. Next a tibial tray trial and 9 mm insert trial was placed. The knee was taken through a range of motion and had full extension to 130 degrees of flexion. Patellofemoral tracking was satisfactory. Final Navio measurements were made. The two screws and four pins were removed without complication. The patella was inverted and sized to a size 35. Three peg holes were drilled through the size 35 drill guide. The trial patella was placed and the knee was taken through a range of motion. There was satisfactory patellofemoral tracking. All trials were removed. The tibia was subluxed anteriorly and sized to a size 5. The proximal tibial was prepared with a size 5 keel punch. All bony cut surfaces were irrigated with sterile saline and dried. Final implants were cemented into place starting with the tibia, followed by the femur, and last the patella. A 9 mm insert trial was placed and the knee was brought into full extension. Tourniquet was turned down and the knee was copiously irrigated with sterile saline. Electrocautery was used to obtain meticulous hemostasis. Once the cement had fully cured, the insert trial was removed. Any excess cement was removed from around the hardware and capsule. Final insert chosen was a 9 mm posterior stabilized Zenobia II articular insert size 5-6. Stability of the insert was checked and noted to be stable. The extensor mechanism was closed using number 1 vicryls. The rest of the incision was closed in a layered fashion using 0 and 2-0 vicryls. The skin was closed using 3-0 nylon suture. Sterile xeroform, 4x4s and webril were used to cover the incision. Chilango wrap and cold pack were used to cover the dressings. The patients anesthesia was reversed without difficulty. He was taken to the PACU in stable condition. Intended weight-bearing will be as tolerated.
[2019-02-19] MEDS: Insulin LISPRO* 1 UNITS UNIT SUBCUT SCH ×2 (19:43→22:37)
[2019-02-19] MEDS: oxyCODONE TAB* 5 MG TAB PO PRN (20:21)
[2019-02-19] MEDS ORDERED: diPHENhydraMINE PO* 25 MG PO SCH (21:00)
[2019-02-19] MEDS: Acetaminophen TAB* 325 MG PO SCH (21:55)
[2019-02-19] MEDS: ceFAZolin 1 GM ADVAN(*) 1 GM in NS 0.9% 50 ML* 50 ML IVPB SCH (22:05)
[2019-02-19] MEDS: Magnesium Oxide TAB* 400 MG PO SCH (22:08)
[2019-02-19] MEDS: Benztropine TAB* 1 MG PO SCH (22:09)
[2019-02-19] MEDS: Docusate CAP* 100 MG PO SCH (22:09)
[2019-02-19] MEDS: clonazePAM TAB(*) 0.5 MG PO SCH (22:10)
[2019-02-19] MEDS: fluPHENAZine HCL TAB* 5 MG PO SCH (22:11)
[2019-02-19] MEDS: Magnesium Hydroxide LIQ* 30 ML UDC PO SCH (22:12)
[2019-02-19] MEDS: [UNRECOGNIZED DRUG - OTHER] PO SCH (22:14)
[2019-02-19] MEDS: tiZANidine TAB* 2 MG PO PRN (22:32)
[2019-02-19] MEDS: traZODone TAB* 50 MG TAB PO PRN (22:33)
[2019-02-19] MEDS: Divalproex ER TAB(*) 500 MG PO SCH (22:34)
[2019-02-20] MEDS: oxyCODONE TAB* 5 MG TAB PO PRN ×6 (00:47→22:06)
[2019-02-20] MEDS: oxyCODONE/Acetamin 5/325 MG* TAB PO PRN ×5 (02:55→20:06)
[2019-02-20] MEDS: Lactated Ringers 1000 ML Bag* 1,000 ML IV SCH (04:06)
[2019-02-20] MEDS: ceFAZolin 1 GM ADVAN(*) 1 GM in NS 0.9% 50 ML* 50 ML IVPB SCH ×2 (05:06→14:21)
[2019-02-20 06:08] LABS: Hematocrit 38 % (42-52); Hemoglobin 12.6 g/dL (14.0-18.0); Mean Platelet Volume 7.9 fL (7.4-10.4); Platelet Count 272 10^3/uL (150-450)
[2019-02-20 06:24] LABS: BUN/Creatinine Ratio 17.4 (8-20); Calcium 8.7 mg/dL (8.6-10.3); EGFR African American 145.7 (>60); EGFR Non-African American 120.4 (>60); Potassium 4.4 mmol/L (3.5-5.0)
[2019-02-20] MEDS: Acetaminophen TAB* 325 MG PO SCH ×3 (06:51→21:29)
[2019-02-20] MEDS: tiZANidine TAB* 2 MG PO PRN ×3 (07:18→20:52)
[2019-02-20] MEDS: Insulin LISPRO* 1 UNITS UNIT SUBCUT SCH ×4 (08:29→20:52)
[2019-02-20] MEDS: Cetirizine* 10 MG TAB PO SCH (08:48)
[2019-02-20] MEDS: [UNRECOGNIZED DRUG - OTHER] PO SCH ×2 (08:49→21:28)
[2019-02-20] MEDS ORDERED: UREA 40% TOPICAL SCH (09:00)
--- NOTE | 2019-02-20 09:05 | PN ---
Subjective Date of Service: 02/20/19 Interval History: Pt feels well. Post op pain is well controlled Objective Active Medications: Acetaminophen (Tylenol Tab*) 975 mg PO Q8HR [facility] Last Admin: 02/20/19 06:51 Dose: Not Given Apixaban (Eliquis*) 2.5 mg PO BID [facility] Benztropine Mesylate (Cogentin Tab*) 1 mg PO BEDTIME [facility] Last Admin: 02/19/19 22:09 Dose: 1 mg Bisacodyl (Dulcolax Supp*) 10 mg SC DAILY PRN PRN Reason: CONSTIPATION Cetirizine HCl (Zyrtec*) 10 mg PO DAILY [facility] Last Admin: 02/20/19 08:48 Dose: Not Given Cholecalciferol (Vitamin D Tab*) 1,000 units PO DAILY [facility] Clonazepam (Klonopin Tab(*)) 1 mg PO BEDTIME [facility] Last Admin: 02/19/19 22:10 Dose: 1 mg Dextrose (Dextrose 50% Vial 50 Ml*) 25 ml IV PUSH .FOR FS < 60 - SS PRN PRN Reason: FS < 60 Diphenhydramine HCl (Benadryl Iv*) 25 mg IV Q6H PRN PRN Reason: PRURITIS Diphenhydramine HCl (Benadryl Po*) 25 mg PO Q6H PRN PRN Reason: PRURITIS Diphenhydramine HCl (Benadryl Po*) 25 mg PO BEDTIME [facility] Last Admin: 02/19/19 22:09 Dose: 25 mg Divalproex Sodium (Depakote Er Tab(*)) 1,500 mg PO BEDTIME [facility] Last Admin: 02/19/19 22:34 Dose: 1,500 mg Docusate Sodium (Colace Cap*) 100 mg PO BID [facility] Last Admin: 02/19/19 22:09 Dose: 100 mg Fluphenazine HCl (Prolixin Tab*) 20 mg PO BEDTIME [facility] Last Admin: 02/19/19 22:11 Dose: 20 mg Cefazolin Sodium 1 gm/ Sodium (Chloride) 50 mls @ 200 mls/hr IVPB Q8H [facility] Stop: 02/20/19 13:14 Last Admin: 02/20/19 05:06 Dose: 200 mls/hr Insulin Human Lispro (Humalog*) 0 units SUBCUT ACHS [facility]; Protocol Last Admin: 02/20/19 08:29 Dose: Not Given Lactulose (Lactulose*) 30 ml PO BID PRN PRN Reason: CONSTIPATION Magnesium Hydroxide (Milk Of Magnesia Liq*) 30 ml PO BID [facility] Last Admin: 02/19/19 22:12 Dose: 30 ml Magnesium Hydroxide (Milk Of Magnesia Liq*) 30 ml PO Q6H PRN PRN Reason: CONSTIPATION Magnesium Oxide (Magox 400 Tab*) 400 mg PO BEDTIME [facility] Last Admin: 02/19/19 22:08 Dose: 400 mg Morphine Sulfate (Morphine Inj (Syringe))*) 2 mg IV Q4H PRN PRN Reason: Pain - Unrelieved Multivitamins (Theragran Tab*) 1 tab PO DAILY [facility] Non-Formulary Medication (Cannabidiol (Cbd) Extract [Epidiolex]) 1 applic TOPICAL BID PRN PRN Reason: PAIN - MODERATE Non-Formulary Medication (Glucosam/Chondr/Collagn/Hyalur [Glucosamine & Chondroitin Cap]) 1 cap PO BID [facility] Last Admin: 02/20/19 08:49 Dose: Not Given Non-Formulary Medication (Proair Digihaler) 1 puff INH Q6HR PRN PRN Reason: SHORTNESS OF BREATH Pto Nf Med: Urea 40% (Cream) 1 applic TOPICAL DAILY [facility] Ondansetron HCl (Zofran Inj*) 4 mg IV Q6H PRN PRN Reason: NAUSEA Ondansetron HCl (Zofran Odt Tab*) 4 mg PO Q6H PRN PRN Reason: NAUSEA Oxycodone HCl (Roxycodone Tab*) 10 mg PO Q4H PRN PRN Reason: Pain - Breakthrough Last Admin: 02/20/19 05:04 Dose: 10 mg Oxycodone/Acetaminophen (Percocet 5/325 Tab*) 1 tab PO Q4H PRN PRN Reason: PAIN - MODERATE Oxycodone/Acetaminophen (Percocet 5/325 Tab*) 2 tab PO Q4H PRN PRN Reason: PAIN - SEVERE Last Admin: 02/20/19 07:17 Dose: 2 tab Polyethylene Glycol/Electrolytes (Miralax*) 17 gm PO DAILY PRN PRN Reason: CONSTIPATION Tizanidine HCl (Zanaflex Tab*) 4 mg PO TID PRN PRN Reason: SPASMS Last Admin: 02/20/19 07:18 Dose: 4 mg Trazodone HCl (Desyrel Tab*) 50 mg PO BEDTIME PRN PRN Reason: INSOMNIA Last Admin: 02/19/19 22:33 Dose: 50 mg Triamcinolone Acetonide (Triamcinolone 0.1% Paste *) 1 applic TOPICAL DAILY PRN PRN Reason: RASH Vital Signs - 8 hr 02/20/19 02/20/19 02/20/19 02:55 03:34 03:45 Temperature 99.0 F Pulse Rate 85 Respiratory 16 16 16 Rate Blood Pressure 149/72 (mmHg) O2 Sat by Pulse 98 Oximetry 02/20/19 02/20/19 02/20/19 05:04 06:54 07:10 Temperature Pulse Rate Respiratory 18 16 16 Rate Blood Pressure (mmHg) O2 Sat by Pulse Oximetry 02/20/19 02/20/19 07:17 07:32 Temperature 98.4 F Pulse Rate 80 Respiratory 16 16 Rate Blood Pressure 133/61 (mmHg) O2 Sat by Pulse 95 Oximetry Oxygen Devices in Use Now: None Appearance: 53 yo M in nAD, aAOx3 Eyes: No Scleral Icterus, PERRLA Ears/Nose/Mouth/Throat: NL Teeth, Lips, Gums, Mucous Membranes Moist Neck: NL Appearance and Movements; NL JVP, Trachea Midline Respiratory: Symmetrical Chest Expansion and Respiratory Effort, Clear to Auscultation Cardiovascular: NL Sounds; No Murmurs; No JVD, RRR Abdominal: NL Sounds; No Tenderness; No Distention Lymphatic: No Cervical Adenopathy Extremities: No Clubbing, Cyanosis, - - trace b/l ankle edema, R knee in post op dresings and cryo unit Skin: No Nodules or Sclerosis Neurological: Alert and Oriented x 3, NL Muscle Strength and Tone Result Diagrams: 02/20/19 05:49 02/20/19 05:49 Assess/Plan/Problems-Billing Assessment: 53 yo M with h/o obesity, DM2, LEXX(on CPAP), schizophrenia and bipolar, s/p elective R knee replacement 02/19/19 - Patient Problems (1) Total knee replacement status Comment: as per Dr. Cueva, likely will need STR (2) LEXX on CPAP Comment: cont CPAP (3) Schizophrenia Comment: cont Prolixin (4) Bipolar disease, chronic Comment: cont Depakote (5) DM2 (diabetes mellitus, type 2) Comment: holding metformin, cont ISS (6) DVT prophylaxis Comment: eliquis Status and Disposition: Medicine consult, will follow
[2019-02-20] MEDS: Magnesium Hydroxide LIQ* 30 ML UDC PO SCH ×2 (09:23→20:53)
[2019-02-20] MEDS: Docusate CAP* 100 MG PO SCH ×2 (09:23→20:54)
[2019-02-20] MEDS: Cholecalciferol TAB* 1000 UNITS PO SCH (09:23)
[2019-02-20] MEDS: Apixaban* 2.5 MG TAB PO SCH ×2 (09:24→20:55)
[2019-02-20] MEDS: Vitamin THERAPEUTIC TAB PO SCH (09:24)
--- NOTE | 2019-02-20 09:54 | PN ---
Progress Note - Progress Note Date of Service: 02/20/19 SOAP: Subjective: []Pt seen and examined OOB in chair. He feels well without complaints. R knee pain adequately controlled. Denies CP, SOB, dizziness, nausea. Objective: []Gen: NAD, appears well RLE: Right knee dressing CDI, thigh soft, DF/PF intact, DP2+, sensation intact to light touch distally Calves supple and nontender without erythema, edema or palpable cords Assessment: []POD 1 sp right total knee replacement Plan: []WBAT PT Takes benadryl 50 mg qhs at home, added Sodium 130, stop IV fluids, recheck tomorrow. Uses CBD topically on right knee for pain. Cannot use this near his incision, okay to use elsewhere as prescribed. Plans for [facility] at [place], ins requires a 3 day stay Vital Signs Temp 98.4 F 02/20/19 07:32 Pulse 80 02/20/19 07:32 Resp 18 02/20/19 09:24 BP 133/61 02/20/19 07:32 Pulse Ox 95 02/20/19 07:32 Intake & Output 02/19/19 02/20/19 02/20/19 18:59 06:59 18:59 Intake Total 2660 1715 854 Output Total 650 1425 Balance 2009 290 854 Weight 292 lb Intake: IV Fluids 2300 980 494 LR 2300 980 494 IVPB 55 ABX - CEFAZOLIN 55 Oral 360 680 360 Output: [place] 400 1425 Estimated Blood Loss 250 Laboratory Last Values Hgb 12.6 g/dL (14.0-18.0) L 02/20/19 05:49 Hct 38 % (42-52) L 02/20/19 05:49 Plt Count 272 10^3/uL (150-450) 02/20/19 05:49 MPV 7.9 fL (7.4-10.4) 02/20/19 05:49 Sodium 130 mmol/L (135-145) L 02/20/19 05:49 Potassium 4.4 mmol/L (3.5-5.0) 02/20/19 05:49 Chloride 97 mmol/L (101-111) L 02/20/19 05:49 Carbon Dioxide 25 mmol/L (22-32) 02/20/19 05:49 Anion Gap 8 mmol/L (2-11) 02/20/19 05:49 BUN 12 mg/dL (6-24) 02/20/19 05:49 Creatinine 0.69 mg/dL (0.67-1.17) 02/20/19 05:49 Est GFR ( Amer) 145.7 (>60) 02/20/19 05:49 Est GFR (Non-Af Amer) 120.4 (>60) 02/20/19 05:49 BUN/Creatinine Ratio 17.4 (8-20) 02/20/19 05:49 Glucose 147 mg/dL (70-100) H 02/20/19 05:49 POC Glucose (mg/dL) 87 mg/dL (70-100) 02/20/19 07:23 Calcium 8.7 mg/dL (8.6-10.3) 02/20/19 05:49
[2019-02-20] MEDS ORDERED: Albuterol HFA INHALER* 8 gm MDI INH PRN (10:00)
[2019-02-20] MEDS: Divalproex ER TAB(*) 500 MG PO SCH (20:53)
[2019-02-20] MEDS: UREA 40% TOPICAL SCH (20:53)
[2019-02-20] MEDS: diPHENhydraMINE PO* 50 MG PO SCH (20:54)
[2019-02-20] MEDS: Magnesium Oxide TAB* 400 MG PO SCH (20:54)
[2019-02-20] MEDS: Benztropine TAB* 1 MG PO SCH (20:54)
[2019-02-20] MEDS: clonazePAM TAB(*) 0.5 MG PO SCH (20:55)
[2019-02-20] MEDS: traZODone TAB* 50 MG TAB PO PRN (20:55)
[2019-02-20] MEDS: fluPHENAZine HCL TAB* 5 MG PO SCH (21:00)
[2019-02-21] MEDS: oxyCODONE/Acetamin 5/325 MG* TAB PO PRN ×6 (00:11→21:20)
[2019-02-21] MEDS: oxyCODONE TAB* 5 MG TAB PO PRN ×4 (02:05→15:16)
[2019-02-21] MEDS: Acetaminophen TAB* 325 MG PO SCH ×3 (05:29→21:21)
[2019-02-21 06:12] LABS: Hematocrit 31 % (42-52); Hemoglobin 10.9 g/dL (14.0-18.0); Mean Platelet Volume 7.7 fL (7.4-10.4); Platelet Count 222 10^3/uL (150-450)
[2019-02-21] MEDS: Insulin LISPRO* 1 UNITS UNIT SUBCUT SCH ×4 (08:10→21:33)
[2019-02-21] MEDS: Vitamin THERAPEUTIC TAB PO SCH (08:12)
[2019-02-21] MEDS: Cholecalciferol TAB* 1000 UNITS PO SCH (08:12)
[2019-02-21] MEDS: Magnesium Hydroxide LIQ* 30 ML UDC PO SCH ×2 (08:12→21:16)
[2019-02-21] MEDS: Docusate CAP* 100 MG PO SCH ×2 (08:12→21:16)
[2019-02-21] MEDS: Cetirizine* 10 MG TAB PO SCH (08:13)
[2019-02-21] MEDS: Apixaban* 2.5 MG TAB PO SCH ×2 (08:13→21:19)
[2019-02-21] MEDS: [UNRECOGNIZED DRUG - OTHER] PO SCH ×2 (08:14→21:21)
[2019-02-21] MEDS ORDERED: Pneumococcal *Vac Polyvalent 0.5 ML VIAL IM ONE (09:00)
--- NOTE | 2019-02-21 09:31 | PN ---
Progress Note - Progress Note Date of Service: 02/21/19 SOAP: Subjective: Pt seen OOB in chair. Pain is well controlled and he has no complaints. Denies CP, SOB, dizziness, nausea. Objective: []Gen: NAD, appears well RLE: Right knee dressing changed, incision CDI, thigh soft, DF/PF intact, DP2+, sensation intact to light touch distally Calves supple and nontender without erythema, edema or palpable cords Assessment: []POD 2 sp right total knee replacement Plan: []WBAT PT Sodium 125 with IV fluids discontinued yesterday morning. Will discuss further action with medicine service Plans for [facility] tomorrow, ins requires a 3 day stay ( 02/22/19) Vital Signs Temp 98.6 F 02/21/19 07:26 Pulse 76 02/21/19 07:26 Resp 18 02/21/19 09:10 BP 132/53 02/21/19 07:26 Pulse Ox 97 02/21/19 08:12 Intake & Output 02/20/19 02/21/19 02/21/19 18:59 06:59 18:59 Intake Total 1229 1500 Output Total 500 1200 300 Balance 729 300 -300 Intake: IV Fluids 494 LR 494 IVPB 55 ABX - CEFAZOLIN 55 Oral 680 1500 Output: Urine 500 1200 300 Laboratory Last Values Hgb 10.9 g/dL (14.0-18.0) L 02/21/19 05:57 Hct 31 % (42-52) L 02/21/19 05:57 Plt Count 222 10^3/uL (150-450) 02/21/19 05:57 MPV 7.7 fL (7.4-10.4) 02/21/19 05:57 Sodium 125 mmol/L (135-145) L 02/21/19 05:57 Potassium 4.4 mmol/L (3.5-5.0) 02/20/19 05:49 Chloride 97 mmol/L (101-111) L 02/20/19 05:49 Carbon Dioxide 25 mmol/L (22-32) 02/20/19 05:49 Anion Gap 8 mmol/L (2-11) 02/20/19 05:49 BUN 12 mg/dL (6-24) 02/20/19 05:49 Creatinine 0.69 mg/dL (0.67-1.17) 02/20/19 05:49 Est GFR ( Amer) 145.7 (>60) 02/20/19 05:49 Est GFR (Non-Af Amer) 120.4 (>60) 02/20/19 05:49 BUN/Creatinine Ratio 17.4 (8-20) 02/20/19 05:49 Glucose 147 mg/dL (70-100) H 02/20/19 05:49 POC Glucose (mg/dL) 137 mg/dL (70-100) H 02/21/19 07:24 Calcium 8.7 mg/dL (8.6-10.3) 02/20/19 05:49
--- NOTE | 2019-02-21 14:59 | PN ---
Subjective Date of Service: 02/21/19 Interval History: Pt feels well. R knee post op pain-controlled Objective Active Medications: Acetaminophen (Tylenol Tab*) 975 mg PO Q8HR [facility] Last Admin: 02/21/19 12:10 Dose: Not Given Albuterol (Ventolin Hfa Inhaler*) 1 puff INH Q6HR PRN PRN Reason: SHORTNESS OF BREATH Apixaban (Eliquis*) 2.5 mg PO BID [facility] Last Admin: 02/21/19 08:13 Dose: 2.5 mg Benztropine Mesylate (Cogentin Tab*) 1 mg PO BEDTIME [facility] Last Admin: 02/20/19 20:54 Dose: 1 mg Bisacodyl (Dulcolax Supp*) 10 mg MD DAILY PRN PRN Reason: CONSTIPATION Cetirizine HCl (Zyrtec*) 10 mg PO DAILY [facility] Last Admin: 02/21/19 08:13 Dose: 10 mg Cholecalciferol (Vitamin D Tab*) 1,000 units PO DAILY [facility] Last Admin: 02/21/19 08:12 Dose: 1,000 units Clonazepam (Klonopin Tab(*)) 1 mg PO BEDTIME [facility] Last Admin: 02/20/19 20:55 Dose: 1 mg Dextrose (Dextrose 50% Vial 50 Ml*) 25 ml IV PUSH .FOR FS < 60 - SS PRN PRN Reason: FS < 60 Diphenhydramine HCl (Benadryl Iv*) 25 mg IV Q6H PRN PRN Reason: PRURITIS Diphenhydramine HCl (Benadryl Po*) 25 mg PO Q6H PRN PRN Reason: PRURITIS Diphenhydramine HCl (Benadryl Po*) 50 mg PO BEDTIME [facility] Last Admin: 02/20/19 20:54 Dose: 50 mg Divalproex Sodium (Depakote Er Tab(*)) 1,500 mg PO BEDTIME [facility] Last Admin: 02/20/19 20:53 Dose: 1,500 mg Docusate Sodium (Colace Cap*) 100 mg PO BID [facility] Last Admin: 02/21/19 08:12 Dose: 100 mg Fluphenazine HCl (Prolixin Tab*) 20 mg PO BEDTIME [facility] Last Admin: 02/20/19 21:00 Dose: 20 mg Insulin Human Lispro (Humalog*) 0 units SUBCUT [facility]; Protocol Last Admin: 02/21/19 11:53 Dose: 2 units Lactulose (Lactulose*) 30 ml PO BID PRN PRN Reason: CONSTIPATION Magnesium Hydroxide (Milk Of Magnesia Liq*) 30 ml PO BID [facility] Last Admin: 02/21/19 08:12 Dose: 30 ml Magnesium Hydroxide (Milk Of Magnesia Liq*) 30 ml PO Q6H PRN PRN Reason: CONSTIPATION Magnesium Oxide (Magox 400 Tab*) 400 mg PO BEDTIME [facility] Last Admin: 02/20/19 20:54 Dose: 400 mg Morphine Sulfate (Morphine Inj (Syringe))*) 2 mg IV Q4H PRN PRN Reason: Pain - Unrelieved Multivitamins (Theragran Tab*) 1 tab PO DAILY [facility] Last Admin: 02/21/19 08:12 Dose: 1 tab Non-Formulary Medication (Glucosam/Chondr/Collagn/Hyalur [Glucosamine & Chondroitin Cap]) 1 cap PO BID [facility] Last Admin: 02/21/19 08:14 Dose: Not Given Pto Nf Med: Urea 40% (Cream) 1 applic TOPICAL 2100 [facility] Last Admin: 02/20/19 20:53 Dose: 1 applic Ondansetron HCl (Zofran Inj*) 4 mg IV Q6H PRN PRN Reason: NAUSEA Ondansetron HCl (Zofran Odt Tab*) 4 mg PO Q6H PRN PRN Reason: NAUSEA Oxycodone HCl (Roxycodone Tab*) 10 mg PO Q4H PRN PRN Reason: Pain - Breakthrough Last Admin: 02/21/19 11:17 Dose: 10 mg Oxycodone/Acetaminophen (Percocet 5/325 Tab*) 1 tab PO Q4H PRN PRN Reason: PAIN - MODERATE Oxycodone/Acetaminophen (Percocet 5/325 Tab*) 2 tab PO Q4H PRN PRN Reason: PAIN - SEVERE Last Admin: 02/21/19 13:14 Dose: 2 tab Polyethylene Glycol/Electrolytes (Miralax*) 17 gm PO DAILY PRN PRN Reason: CONSTIPATION Tizanidine HCl (Zanaflex Tab*) 4 mg PO TID PRN PRN Reason: SPASMS Last Admin: 02/20/19 20:52 Dose: 4 mg Trazodone HCl (Desyrel Tab*) 50 mg PO BEDTIME PRN PRN Reason: INSOMNIA Last Admin: 02/20/19 20:55 Dose: 50 mg Triamcinolone Acetonide (Triamcinolone 0.1% Paste *) 1 applic TOPICAL DAILY PRN PRN Reason: RASH Vital Signs - 8 hr 02/21/19 02/21/19 02/21/19 07:26 08:00 08:12 Temperature 98.6 F Pulse Rate 76 Respiratory 18 20 Rate Blood Pressure 132/53 (mmHg) O2 Sat by Pulse 97 97 97 Oximetry 02/21/19 02/21/19 02/21/19 09:10 11:09 11:17 Temperature 98.9 F Pulse Rate 92 Respiratory 18 18 18 Rate Blood Pressure 151/78 (mmHg) O2 Sat by Pulse 98 Oximetry 02/21/19 02/21/19 02/21/19 11:22 13:14 13:22 Temperature Pulse Rate Respiratory 18 18 18 Rate Blood Pressure (mmHg) O2 Sat by Pulse Oximetry Oxygen Devices in Use Now: None Appearance: 53 yo m in nAD, aAOx3 Eyes: No Scleral Icterus, PERRLA Ears/Nose/Mouth/Throat: NL Teeth, Lips, Gums, Mucous Membranes Moist Neck: NL Appearance and Movements; NL JVP, Trachea Midline Respiratory: Symmetrical Chest Expansion and Respiratory Effort, Clear to Auscultation Cardiovascular: NL Sounds; No Murmurs; No JVD, RRR Abdominal: NL Sounds; No Tenderness; No Distention Lymphatic: No Cervical Adenopathy Extremities: No Clubbing, Cyanosis, - - trace r ankle edema, r knee in post op dressings-not removed Skin: No Nodules or Sclerosis Neurological: Alert and Oriented x 3, NL Muscle Strength and Tone Result Diagrams: 02/21/19 05:57 02/21/19 05:57 Assess/Plan/Problems-Billing Assessment: 53 yo M with h/o obesity, DM2, LEXX(on CPAP), schizophrenia and bipolar, s/p elective R knee replacement 02/19/19 - Patient Problems (1) Total knee replacement status Comment: as per Dr. Cueva, likely will need STR (2) LEXX on CPAP Comment: cont CPAP (3) Schizophrenia Comment: cont Prolixin (4) Bipolar disease, chronic Comment: cont Depakote (5) DM2 (diabetes mellitus, type 2) Comment: holding metformin, cont ISS (6) Hyponatremia Comment: iatrogenic-placed on fluid restriction, cont to monitor (7) DVT prophylaxis Comment: florencia (8) Postoperative anemia due to acute blood loss Comment: Hb doen to 10, but no acute signs of bleeding, likely a combination of post op blood loss and dilution with IVF Status and Disposition: Medicine consult, will follow
[2019-02-21] MEDS: Divalproex ER TAB(*) 500 MG PO SCH (21:14)
[2019-02-21] MEDS: tiZANidine TAB* 2 MG PO PRN (21:15)
[2019-02-21] MEDS: diPHENhydraMINE PO* 50 MG PO SCH (21:16)
[2019-02-21] MEDS: fluPHENAZine HCL TAB* 5 MG PO SCH (21:18)
[2019-02-21] MEDS: Benztropine TAB* 1 MG PO SCH (21:18)
[2019-02-21] MEDS: clonazePAM TAB(*) 0.5 MG PO SCH (21:19)
[2019-02-21] MEDS: traZODone TAB* 50 MG TAB PO PRN (21:19)
[2019-02-21] MEDS: Magnesium Oxide TAB* 400 MG PO SCH (21:20)
[2019-02-21] MEDS: UREA 40% TOPICAL SCH (21:21)
[2019-02-22] MEDS: oxyCODONE TAB* 5 MG TAB PO PRN ×2 (03:08→08:18)
[2019-02-22] MEDS: oxyCODONE/Acetamin 5/325 MG* TAB PO PRN ×2 (05:16→11:14)
[2019-02-22 05:59] LABS: Hematocrit 30 % (42-52); Hemoglobin 10.4 g/dL (14.0-18.0); Mean Platelet Volume 7.6 fL (7.4-10.4); Platelet Count 246 10^3/uL (150-450)
[2019-02-22] MEDS: Acetaminophen TAB* 325 MG PO SCH (06:08)
[2019-02-22 06:14] LABS: BUN/Creatinine Ratio 14.5 (8-20); Calcium 8.6 mg/dL (8.6-10.3); EGFR African American 164.8 (>60); EGFR Non-African American 136.2 (>60); Potassium 4.3 mmol/L (3.5-5.0)
[2019-02-22 08:08] VITALS: BP 151/88
[2019-02-22] MEDS: Insulin LISPRO* 1 UNITS UNIT SUBCUT SCH ×2 (08:15→12:15)
[2019-02-22] MEDS: Cetirizine* 10 MG TAB PO SCH (08:17)
[2019-02-22] MEDS: Apixaban* 2.5 MG TAB PO SCH (08:18)
[2019-02-22] MEDS: Cholecalciferol TAB* 1000 UNITS PO SCH (08:19)
[2019-02-22] MEDS: Vitamin THERAPEUTIC TAB PO SCH (08:19)
[2019-02-22] MEDS: [UNRECOGNIZED DRUG - OTHER] PO SCH (08:20)
[2019-02-22] MEDS: Docusate CAP* 100 MG PO SCH (08:24)
[2019-02-22] MEDS: Magnesium Hydroxide LIQ* 30 ML UDC PO SCH (08:24)
--- NOTE | 2019-02-22 10:04 | PN ---
Progress Note - Progress Note Date of Service: 02/22/19 SOAP: Subjective: [Pt seen OOB in chair. Pain is well controlled and he has no complaints. Denies CP, SOB, dizziness, nausea. Objective: []Gen: NAD, appears well RLE: Right knee dressing changed, incision CDI, thigh soft, DF/PF intact, DP2+, sensation intact to light touch distally Calves supple and nontender without erythema, edema or palpable cords Vital Signs Temp 98.9 F 02/22/19 08:07 Pulse 114 02/22/19 08:07 Resp 18 02/22/19 08:19 BP 151/88 02/22/19 08:07 Pulse Ox 97 02/22/19 08:07 Intake & Output 02/21/19 02/22/19 02/22/19 18:59 06:59 18:59 Intake Total 990 800 210 Output Total 1300 1250 550 Balance -310 -450 -340 Intake: Oral 990 800 210 Output: Urine 1300 1250 550 Other: Estimated Void Medium Date of Last Bowel 02/21/2019 02/22/19 Movement # Bowel Movements 1 1 Estimated Stool Amount Small Medium Large # Voids 1 Assessment: []POD 3 sp right total knee replacement Plan: []WBAT PT Sodium improved to 134 Plans for [facility] [place] today
--- NOTE | 2019-02-22 10:10 | DS ---
Orthopedic Discharge Summary - Discharge Summary Date of Admission:02/19/19 Date of Discharge: 02/22/2019 Date of Surgery: 02/19/2019 Attending Orthopedic Provider: Dr. Cueva Pre-operative Diagnosis: Right knee osteoarthritis Operative Procedure: Right total knee replacement Disposition of Patient: [facility] Condition of Patient: Good History: JANETT LOPEZ is a 53 year old M with years of increasingly severe right knee pain. Patient has failed conservative management and has elected to undergo a right total knee replacement Hospital Course: JANETT was admitted to [facility] on 02/19/19. Patient underwent a right total knee replacement without complication followed by a brief recovery in PACU and transfer to the Short Stay Surgical Unit in stable condition. Our hospitalist service, physical therapy and occupational therapy also participated in this patients care. Post-op day 1: patient was alert and in no acute distress. Dressing was clean, dry and intact. Operative extremity dorsiflexion and plantarflexion intact, sensation intact to light touch distally, DP2+. He was found to have a Na of 130 and was placed on fluid restriction. Post-op day two: dressing was changed, incision was clean, dry and intact. Pts Na had decreased to 125. Medicine placed him on strict fluid restriction. POD 3 Na had increased to 134. The pt had never become symptomatic of hyponautremia while inpatient. Patient was deemed to be medically and orthopedically stable for discharge. Physical therapy goals were met. Home Medications Medication Instructions Recorded Confirmed Type Tizanidine HCl 4 mg PO TID PRN 07/05/16 02/19/19 History diPHENhydraMINE PO* [Benadryl PO 50 mg PO BEDTIME 07/05/16 02/19/19 History 25 MG TAB*] metFORMIN* [Glucophage 1000 MG TAB 1,000 mg PO BID 07/05/16 02/19/19 History *] Magnesium Oxide TAB* [MagOx 400 400 mg PO BEDTIME 04/07/17 02/19/19 History TAB*] clonazePAM TAB(*) [Klonopin TAB(*)] 1 mg PO BEDTIME 04/07/17 02/19/19 History fluPHENAZine HCL TAB* [Prolixin 20 mg PO BEDTIME 04/07/17 02/19/19 History TAB*] traZODone TAB* [Desyrel TAB*] 50 mg PO BEDTIME PRN 04/07/17 02/19/19 History Cholecalciferol (Vitamin D3) 1,000 unit PO DAILY 04/11/18 02/19/19 History [Vitamin D3] Acetaminophen [Tylenol Extra 1,000 mg PO TID PRN MDD 3000 MG 01/31/19 02/19/19 History Strength] Benztropine TAB* [Cogentin TAB*] 1 mg PO BEDTIME 01/31/19 02/19/19 History Cannabidiol (Cbd) Extract 1 applic TOPICAL BID PRN 01/31/19 02/19/19 History [Epidiolex] Glucosam/Chondr/Collagn/Hyalur 1 cap PO BID 01/31/19 02/19/19 History [Glucosamine & Chondroitin Cap] Loratadine 10 mg PO DAILY 01/31/19 02/19/19 History Polyethylene Glycol 3350* 17 gm PO DAILY PRN 01/31/19 02/19/19 History [Miralax*] Triamcinolone PASTE 0.1% (NF) 1 applic TOPICAL DAILY PRN 01/31/19 02/19/19 History [Triamcinolone 0.1% PASTE *] Urea 1 applic TOPICAL DAILY 01/31/19 02/19/19 History Depakote ER TAB(*) 1,500 mg PO BEDTIME 02/11/19 02/19/19 History Proair Digihaler 1 puff INH Q6HR PRN 02/11/19 02/19/19 History Apixaban* [Eliquis*] 2.5 mg PO BID tab 02/22/19 Rx oxyCODONE/Acetamin 5/325 MG* 1 tab PO Q4H PRN tab 02/22/19 Rx [Percocet 5/325 TAB*] oxyCODONE/Acetamin 5/325 MG* 2 tab PO Q4H PRN tab 02/22/19 Rx [Percocet 5/325 TAB*] Discharge Instructions following Orthopedic Surgery: Activity: * Weight Bearing as tolerated * Continue physical therapy and occupational therapy exercises as shown Wound care: * OK to shower on post-op day 3, no bathing, swimming, or submerging wound. * Use gentle soap, pat dry. Cover with gauze, JAIDA wrap or tape. * Visiting home nurse to do wound checks. Call Orthopedic office for: * Increased drainage * Redness * Increased pain * Fever Go to ER with shortness of breath or chest pain. Diet: * Regular diet * Increase fluids and fiber to prevent constipation. * Continue to use stool softeners, call office if no bowel motion within 48 hours. Medications See Home Medication List in your packet for medications that you should take after discharge. DVT Prophylaxis: Eliquis Dosin.5 mg, 1 tab every 12 hours x 30 days Pain Control: Percocet Dosin/325 mg 1-2 tabs by mouth every 4-6 hours as needed for pain. Maximum of 10 tabs per day. Please note that Percocet contains Tylenol (acetaminophen). Maximum daily dose of Tylenol is 4000 mg from all sources. Antibiotics are required prior to any dental work. FOLLOW UP: Follow up with [Hammad] Within 10-14 days, call for appointment Please call our office with any questions or concerns ([phone])
== END 2019-02-22 12:00 | DRG 470 ==
LOC: AA 09:25 → EDSTATUS 13:00 → SSU 17:33
PROVIDERS: ADMIT Orthopaedic Surgery Adult Reconstructive Orthopaedic Surgery; ATTEND Orthopaedic Surgery Adult Reconstructive Orthopaedic Surgery
PROC: 0SRC069 Replacement of Right Knee Joint with Oxidized Zirconium on Polyethylene Synthetic Substitute, Cemented, Open Approach (ICD-10-PCS; principal; 2019-02-19 13:00)
DX: M17.11 Unilateral primary osteoarthritis, right knee (principal); E87.1 Hypo-osmolality and hyponatremia; D62 Acute posthemorrhagic anemia; Z68.42 Body mass index [BMI] 45.0-49.9, adult; F31.9 Bipolar disorder, unspecified; E11.9 Type 2 diabetes mellitus without complications; G47.33 Obstructive sleep apnea (adult) (pediatric); E66.01 Morbid (severe) obesity due to excess calories; R07.9 Chest pain, unspecified; G89.29 Other chronic pain; K21.9 Gastro-esophageal reflux disease without esophagitis; F25.9 Schizoaffective disorder, unspecified; M25.461 Effusion, right knee; F41.9 Anxiety disorder, unspecified; M25.761 Osteophyte, right knee; Z88.8 Allergy status to other drugs, medicaments and biological substances; Z87.891 Personal history of nicotine dependence; Z79.899 Other long term (current) drug therapy; Z79.84 Long term (current) use of oral hypoglycemic drugs; Z23 Encounter for immunization
CPT/HCPCS: 36415; 80048; 84300; 85014; 85018; 85049; 88305; 88311; 90732; A9270-GY; C1776; J0690; J0694; J1100; J2250; J2405; J2704; J2795; J3010; J3490